=== PATIENT | female | born 1980 | race Caucasian/White ===

== ENCOUNTER 2019-12-17 13:53 | Emergency (ER) | payer OTHER, SELFPAY ==
[2019-12-17] MEDS: KETOROLAC 30 MG/ML VIAL (*BKC) IV PUSH (15:45)
[2019-12-17 16:33] VITALS: RESP 14; O2SAT 100
[2019-12-17] MEDS: SODIUM CHLORIDE 0.9% IV 1,000 ML 999 ML IV CONT (16:36)
--- NOTE | 2019-12-17 16:59 | PC.NURSE ---
[facility] CHARTING SYSTEM DOWN DURING PATIENT ASSESSMENT. PAPER CHARTING COMPLETED.
== END 2019-12-17 16:34 | disposition home or self-care (01) ==
PROVIDERS: Emergency Provider Surgery; PCP Physician Assistant
DX: G43.909 Migraine, unspecified, not intractable, without status migrainosus (principal)
CPT/HCPCS: 96374; 99282; 99284; J1885; J7030

== ENCOUNTER 2020-01-04 06:24 | Emergency (ER) | payer OTHER, SELFPAY ==
--- NOTE | ~2020-01-04 | XR_ITS ---
EXAMINATION: XR sacrum coccyx min 2V DATE: 01/04/2020 07:21 INDICATION: Sacrococcygeal pain. Fall. TECHNIQUE: 3 views of the sacrum and coccyx were obtained. COMPARISON: None. FINDINGS: There is dextrocurvature of lumbar spine. No fracture. There is mild osteoarthritis of the sacroiliac joints. IMPRESSION: 1. No fracture. Reviewed, dictated and finalized at location A. VEGETABLE IMPRESSION: 1. No fracture.
--- NOTE | ~2020-01-04 | XR_ITS ---
EXAMINATION: XR lumbar spine 2-3V DATE: 01/04/2020 07:21 INDICATION: Low back pain. Fall. TECHNIQUE: 3 views of lumbar spine were obtained. COMPARISON: None. FINDINGS: There is 7 degrees dextrocurvature of lumbar spine. Vertebral body heights and intervertebr al disc heights are normal. There are endplate osteophytes at multiple levels. The facet joints are u nremarkable. IMPRESSION: 1. Mild lumbar spondylosis. Reviewed, dictated and finalized at location A. [employer]IST IMPRESSION: 1. Mild lumbar spondylosis.
[2020-01-04 06:30] VITALS: BP 123/80; PULSE 68; RESP 18; TEMP 35.8; O2SAT 98
--- NOTE | 2020-01-04 06:55 | ED.BACK ---
HPI - Back Pain/Injury General Chief Complaint: Back Pain/Injury Stated Complaint: back pain s/p fall down stairs Time Seen by Provider: 01/04/20 06:29 History of Present Illness HPI Narrative: She slipped and fell down 7 stairs last night. She has pain in the lower back since the fall. Moderate in severity. Worse with standing. No radiation. No weaknes, numness, wounds, bruising. She has been ambulatory since the fall. She tried tylenol without relief. Related Data Home Medications Medication Instructions Recorded Confirmed sertraline [Zoloft] 75 mg PO DAILY 09/11/19 09/11/19 Allergies Allergy/AdvReac Type Severity Reaction Status Date / Time clavulanic acid Allergy Mild Unknown Verified 09/29/19 09:26 codeine Allergy Mild RASH Verified 09/29/19 09:26 latex Allergy Mild Unknown Verified 09/29/19 09:26 morphine Allergy Mild Unknown Verified 09/29/19 09:24 omeprazole Allergy Mild Unknown Verified 09/29/19 09:24 Penicillins Allergy Mild Unknown Verified 09/29/19 09:24 propoxyphene Allergy Mild Unknown Verified 09/29/19 09:24 zinc chloride Allergy Mild Unknown Verified 09/29/19 09:24 cinnamon Allergy Anaphylaxis Verified 09/29/19 09:24 AMOXICILLIN TRIHYDRATE Allergy Unknown Unknown Uncoded 09/29/19 09:24 POTASSIUM CLAVULANATE Allergy Unknown Unknown Uncoded 09/29/19 09:24 Review of Systems Review of Systems: All systems reviewed & are unremarkable except as noted in HPI and below Constitutional: Constitutional: Denies fever(s) and Denies weakness Cardiovascular: Cardiovascular: Denies chest pain Respiratory: Respiratory: Denies dyspnea Gastrointestinal: Gastrointestinal: Denies abdominal pain and Denies nausea Genitourinary: Genitourinary: Denies hematuria and Denies flank pain Musculoskeletal: Musculoskeletal: Reports back pain Neurologic: Denies dizziness, Denies headache(s), Denies numbness and Denies weakness PMF Past Medical History Medical History History of depression History of migraine Surgical History Surgical History Hx of tonsillectomy Social History Social History Substance use: former Gender identity (if verbalized by the patient): Female Exam Const: General: no acute distress and alert Nutritional Appearance: obese Orientation/consciousness: patient oriented x3 HENMT: Head: normal to inspection Eyes: Conjunctivae: conjunctivae normal Pupils: Equal, round and reactive pupils present EOM: EOMs intact bilaterally Resp: Effort & Inspection: normal respiratory effort Auscultation: clear to auscultation bilaterally Cardio: Rate: regular rate Rhythm: regular rhythm Back/Spine/Pelvis: Back: no CVA tenderness Thoracic/Lumbar Spine: thoraco-lumbar ROM normal, paraspinal muscle tenderness bilaterally and No thoracic spinal tenderness Course Vital Signs Vital signs: Vital Signs Temperature 35.8 C L 01/04/20 06:30 Pulse Rate 68 01/04/20 06:30 Respiratory Rate 18 01/04/20 06:30 Blood Pressure 123/80 01/04/20 06:30 Pulse Oximetry 98 01/04/20 06:30 Temperature 36.7 C 01/04/20 08:21 Pulse Rate 58 L 01/04/20 08:21 Respiratory Rate 16 01/04/20 08:21 Blood Pressure 140/94 H 01/04/20 08:21 Pulse Oximetry 98 01/04/20 08:21 MDM - Back Pain/Injury Differential Diagnosis Differential diagnosis: Likely strain of lumbar region and other (fracture, contusion) Medical Records Attestation: I reviewed the patient's medical records. Discharge Plan Discharge Clinical Impression: Strain of lumbar region Qualifiers: Encounter type: initial encounter Qualified Code(s): S39.012A - Strain of muscle, fascia and tendon of lower back, initial encounter Patient Disposition: Home, Self-Care Condition: Stable Instructions: Low Back Strain (ED) Prescriptions: New cyclobenzaprine
[2020-01-04] MEDS: IBUPROFEN 600 MG TABLET PO (08:02)
[2020-01-04 08:21] VITALS: BP 140/94; PULSE 58; RESP 16; TEMP 36.7; O2SAT 98
== END 2020-01-04 08:23 | disposition home or self-care (01) ==
PROVIDERS: Emergency Provider Emergency Medicine; PCP Physician Assistant
DX: S39.012A Strain of muscle, fascia and tendon of lower back, initial encounter (principal); W10.9XXA Fall (on) (from) unspecified stairs and steps, initial encounter
CPT/HCPCS: 72100; 72220; 99284; A9270

== ENCOUNTER 2020-01-13 09:10 | Emergency (ER) | payer OTHER, SELFPAY ==
[2020-01-13 09:20] VITALS: BP 129/75; PULSE 75; RESP 18; TEMP 36.6; O2SAT 100
--- NOTE | 2020-01-13 09:44 | ED.GENADULT ---
HPI - General Adult General Chief complaint: Upper Respiratory Infection Stated complaint: Watery eyes/sinus pressure/sore throat Time Seen by Provider: 01/13/20 09:44 Source: patient and RN notes reviewed Mode of arrival: ambulatory Limitations: no limitations History of Present Illness HPI narrative: 39-year-old female presents with complaints of upper respiratory infection, facial congestion, facial pressure, cough, left ear pain, and intermittent headaches (not the worst of her life) for 1 day. Daily Alavert without relief. No other treatment. No facial swelling. Dry cough. Sore throat bilateral with swallowing. No voice change. No high fevers, chills, drooling, neck or throat swelling. Nasal congestion. No rhinorrhea. No chest pain or shortness of breath. No exacerbating factors. Denies nausea, vomiting, and abdominal pain. Tolerating po intake well. Remains active. Chastity denies being , LMP unknown had and uterine ablation years ago. Some parts of this dictation were generated by voice recognition software and may contain typographical and/or grammatical inaccuracies. Related Data Home Medications Medication Instructions Recorded Confirmed sertraline [Zoloft] 75 mg PO DAILY 09/11/19 01/13/20 Otc Allergy Med 01/13/20 Allergies Allergy/AdvReac Type Severity Reaction Status Date / Time clavulanic acid Allergy Mild Unknown Verified 01/13/20 09:26 codeine Allergy Mild RASH Verified 01/13/20 09:26 latex Allergy Mild Unknown Verified 01/13/20 09:26 morphine Allergy Mild Unknown Verified 01/13/20 09:26 omeprazole Allergy Mild Unknown Verified 01/13/20 09:26 Penicillins Allergy Mild Unknown Verified 01/13/20 09:26 propoxyphene Allergy Mild Unknown Verified 01/13/20 09:26 zinc chloride Allergy Mild Unknown Verified 01/13/20 09:26 cinnamon Allergy Anaphylaxis Verified 01/13/20 09:26 AMOXICILLIN TRIHYDRATE Allergy Unknown Unknown Uncoded 09/29/19 09:24 POTASSIUM CLAVULANATE Allergy Unknown Unknown Uncoded 09/29/19 09:24 Review of Systems Review of Systems: Narrative: CONSTITUTIONAL: Denies fever, chills, sweats. EYES: Denies visual changes, redness, discharge. ENT: Complains of, facial congestion and pressure, LT otalgia, congestion, sore throat. Denies rhinorrhea. CARDIOVASCULAR: Denies chest pain, palpitations, edema. RESPIRATORY: Denies dyspnea, wheezing. Complains of dry cough. GASTROINTESTINAL: Denies abdominal pain, nausea, vomiting, diarrhea. GENITOURINARY: Denies dysuria, hematuria, abnormal discharge. SKIN: Denies rash or itching. MUSCULOSKELETAL: Denies acute back pain, joint pain, or myalgia. NEUROLOGIC: Denies numbness or focal weakness. Complains of intermittent SIBLEY. PSYCHIATRIC: Denies anxiety or depression. All systems reviewed & are unremarkable except as noted in HPI and below. [facility] Past Medical History Medical History (Updated 01/14/20 @ 00:01 by Lashell Perdue) History of depression History of migraine Surgical History Surgical History (Updated 01/13/20 @ 09:59 by KANCHAN Mcdaniel) History of endometrial ablation Hx of tonsillectomy Family History Family History (Updated 01/13/20 @ 10:01 by KANCHAN Mcdaniel) Grandparent Diabetes mellitus Father Lymphoma Social History Social History (Updated 01/13/20 @ 10:02 by KANCHAN Mcdaniel) Smoking status: Former smoker Second hand tobacco smoke exposure: No Alcohol intake: former Substance use: former Living arrangements: with family Occupation/Education: occupation Gender identity (if verbalized by the patient): Female Comments At time of signature, agree with nurse past medical, surgical, social, and family history. There is no relevant family history pertinent to the presenting complaint. Exam Narrative: Exam Narrative: GENERAL: This is a well-nourished, well-developed patient, in no apparent distress. Talks in full sentences and ambulates with steady gait
== END 2020-01-13 10:10 | disposition home or self-care (01) ==
PROVIDERS: Emergency Provider Nurse Practitioner Family; PCP Physician Assistant
DX: J00 Acute nasopharyngitis [common cold] (principal); J01.90 Acute sinusitis, unspecified; Z87.891 Personal history of nicotine dependence; F32.9 Major depressive disorder, single episode, unspecified
CPT/HCPCS: 99213; G0463

== ENCOUNTER 2020-03-30 11:52 | Emergency (ER) | payer OTHER, SELFPAY ==
[2020-03-30 11:58] VITALS: BP 129/77; PULSE 61; RESP 14; TEMP 36.7; O2SAT 100
--- NOTE | 2020-03-30 12:10 | ED.EAR ---
HPI - Ear Problem General Chief complaint: Ear Stated complaint: head nausea achey Time Seen by Provider: 03/30/20 12:10 Source: patient and RN notes reviewed Mode of arrival: ambulatory Limitations: no limitations History of Present Illness HPI Narrative: This is a 39 years old female presents to the office for an evaluation of right ear pain for three weeks. Associated with headache, feeling malaise with vomiting once. Denies diarrhea, fever, chest congestion or rash. Denies sick contact at home. She is currently on cipro for her symptoms that her doctor placed on her it about a week ago. She tried one dose of Tylenol for pain yesterday. She also stated that she does not like to take any medication if she does not have to. Related Data Home Medications Medication Instructions Recorded Confirmed ciprofloxacin HCl [Cipro] 500 mg PO Q12H 03/30/20 03/30/20 sertraline 50 mg PO DAILY 03/30/20 03/30/20 Allergies Allergy/AdvReac Type Severity Reaction Status Date / Time clavulanic acid Allergy Mild Unknown Verified 03/30/20 12:05 codeine Allergy Mild RASH Verified 03/30/20 12:05 latex Allergy Mild Unknown Verified 03/30/20 12:05 morphine Allergy Mild Unknown Verified 03/30/20 12:05 omeprazole Allergy Mild Unknown Verified 03/30/20 12:05 Penicillins Allergy Mild Unknown Verified 03/30/20 12:05 propoxyphene Allergy Mild Unknown Verified 03/30/20 12:05 zinc chloride Allergy Mild Unknown Verified 03/30/20 12:05 cinnamon Allergy Anaphylaxis Verified 03/30/20 12:05 AMOXICILLIN TRIHYDRATE Allergy Unknown Unknown Uncoded 09/29/19 09:24 POTASSIUM CLAVULANATE Allergy Unknown Unknown Uncoded 09/29/19 09:24 Review of Systems Review of Systems: Narrative: CONSTITUTIONAL: Denies fever, chills ENT: Reports head congestion and right ear pain. Denies sore throat. CARDIOVASCULAR: Denies chest pain, palpitation, edema. RESPIRATORY: Denies dyspnea, wheezing, cough GASTROINTESTINAL: Denies abdominal pain, nausea, vomiting, diarrhea. GENITOURINARY: Denies urinary symptoms or discharge SKIN: Denies rash MUSCULOSKELETAL: Denies acute back pain NEUROLOGIC: Denies lightheaded PMFSH Past Medical History Medical History (Updated 03/30/20 @ 12:22 by KANCHAN Montoya) Anxiety History of depression History of migraine Surgical History Surgical History History of endometrial ablation Hx of tonsillectomy Family History Family History Grandparent Diabetes mellitus Father Lymphoma Social History Social History Smoking status: Former smoker Second hand tobacco smoke exposure: No Alcohol intake: former Substance use: former Gender identity (if verbalized by the patient): Female Comments At time of signature, I agree with nursing past medical, surgical, social and family history. There is no relevant family history pertinent to the presenting complaint. Exam Narrative: Exam Narrative: GENERAL: This is a well-nourished, well-developed patient, in no apparent distress. EYES: Sclera clear/white. Vision is grossly intact. EARS: External ears normal, auditory canals clear and without drainage, TMs noted fluid level without perforation. Hearing grossly intact. NOSE: External nose normal with no obvious nasal discharge, nares without redness, no rhinorrhea. THROAT: Mucous membranes moist, posterior pharynx clear. NECK: Neck supple, non-tender without lymphadenopathy, masses or thyromegaly. CARDIOVASCULAR: Regular rate and rhythm without murmurs, gallops, or rubs. RESPIRATORY: Clear to auscultation. Breath sounds equal bilaterally. No wheezes, rales, or rhonchi. GASTROINTESTINAL: Abdomen soft, non-tender, nondistended. Bowel sounds are active. No guarding. SKIN: warm, intact with no suspicious lesions or rash, good texture and turgor. NEURO: awake, alert, a
== END 2020-03-30 12:28 | disposition home or self-care (01) ==
PROVIDERS: Emergency Provider Nurse Practitioner; PCP Physician Assistant
DX: H65.01 Acute serous otitis media, right ear (principal); F41.9 Anxiety disorder, unspecified; Z87.891 Personal history of nicotine dependence
CPT/HCPCS: 99213; G0463

== ENCOUNTER 2020-04-18 09:22 | Emergency (ER) | payer OTHER, SELFPAY ==
--- NOTE | ~2020-04-18 | XR_ITS ---
[[id number] ] INDICATION: Right shoulder and rib pain after fall TECHNIQUE: Frontal projection of the upper right ribs, frontal projection of the lower right ribs, ob lique projection of all the right ribs, frontal inspiratory chest x-ray for interpretation. FINDINGS: There are no displaced rib fractures identified. There are no soft tissue abnormality see n. The lungs are clear. IMPRESSION: 1:No displaced rib fractures. Reviewed, dictated and finalized at location A.
--- NOTE | ~2020-04-18 | XR_ITS ---
XR shoulder RT min 2V 04/18/2020 09:54 INDICATION: Right shoulder pain after fall PROCEDURE: 4 views right shoulder COMPARISON: No prior studies for comparison. FINDINGS: Fracture, dislocation or subluxation is not identified. The soft tissues appear within norm al limits. No foreign bodies are identified. IMPRESSION: 1: NO ACUTE BONE OR JOINT ABNORMALITY IDENTIFIED. Reviewed, dictated and finalized at location A.
[2020-04-18 09:30] VITALS: BP 129/87; PULSE 64; RESP 16; TEMP 36.6; O2SAT 100
--- NOTE | 2020-04-18 09:31 | PC.NURSE ---
pt states is wanting to be discharged. refusing to stay in her room. telling staff her doctor has discharged. pt argumentative. yelling at staff who in the hell do you think you are . edp and ed security at bedside.
--- NOTE | 2020-04-18 09:44 | ED.GENADULT ---
HPI - General Adult General Chief complaint: Extremity Injury, Upper Stated complaint: right arm pain Time Seen by Provider: 04/18/20 09:24 Source: RN notes reviewed History of Present Illness HPI narrative: Patient presents emergency department from home for fall. Patient states that this morning she tripped over her dog toy and fell into the wall on her right side. She states that since that time she is had pain in the right shoulder that radiates down her right arm as well and is her right side she denies striking her head or loss of consciousness she denies shortness of breath abdominal pain nausea vomiting or any other symptoms but states she took Tylenol at home for pain Related Data Home Medications Medication Instructions Recorded Confirmed ciprofloxacin HCl [Cipro] 500 mg PO Q12H 03/30/20 03/30/20 dextroamphetamine 30 mg PO DAILY 03/30/20 03/30/20 sertraline 50 mg PO DAILY 03/30/20 03/30/20 Allergies Allergy/AdvReac Type Severity Reaction Status Date / Time clavulanic acid Allergy Mild Unknown Verified 03/30/20 12:05 codeine Allergy Mild RASH Verified 03/30/20 12:05 latex Allergy Mild Unknown Verified 03/30/20 12:05 morphine Allergy Mild Unknown Verified 03/30/20 12:05 omeprazole Allergy Mild Unknown Verified 03/30/20 12:05 Penicillins Allergy Mild Unknown Verified 03/30/20 12:05 propoxyphene Allergy Mild Unknown Verified 03/30/20 12:05 zinc chloride Allergy Mild Unknown Verified 03/30/20 12:05 cinnamon Allergy Anaphylaxis Verified 03/30/20 12:05 AMOXICILLIN TRIHYDRATE Allergy Unknown Unknown Uncoded 09/29/19 09:24 POTASSIUM CLAVULANATE Allergy Unknown Unknown Uncoded 09/29/19 09:24 Review of Systems Review of Systems: Narrative: Gen.: Denies fevers or chills Eyes: Denies eye pain or visual change ENT: Denies congestion Respiratory: Denies shortness of breath or cough CV: Denies chest pain or palpitations GI: Denies abdominal pain nausea, emesis or diarrhea Musculoskeletal: See HPI Neuro: Denies numbness, tingling, weakness or focal weakness Skin: Denies rash Except as documented, all other systems reviewed and negative PMFSH Past Medical History Medical History Anxiety History of depression History of migraine Surgical History Surgical History History of endometrial ablation Hx of tonsillectomy Social History Social History Smoking status: Former smoker Second hand tobacco smoke exposure: No Alcohol intake: former Substance use: former Gender identity (if verbalized by the patient): Female Exam Narrative: Exam Narrative: APPEARANCE: No acute distress, nontoxic, resting in bed EYES: EOMI HEENT: Normocephalic, atraumatic, OMM RESPIRATORY: No respiratory distress Clear to auscultation bilaterally with no rhonchi wheezing or rales. CARDIOVASCULAR: Regular rate and rhythm without murmurs rubs or gallops. ABDOMINAL: Soft, nontender, nondistended, no rebound or guarding MUSCULOSKELETAl: Moves all extremities. No clubbing, cyanosis or edema. Tender palpation of the right superior and posterior shoulder no swelling or ecchymosis pain with flexion abduction greater than 90 degrees, no tenderness of the right elbow or wrist with full range of motion, radial pulse 2+, neurovascular intact Back: No midline thoracic lumbar tenderness palpation 10 per patient right lateral ribs 6 through 8 no swelling or ecchymosis NEURO: Awake and alert. Following commands, speech normal, no focal deficits SKIN:: Warm, dry. No rashes lesions or abrasions PSYCHIATRIC: Normal affect/mood, Course Course Emergency Course: Discussed with patient results of workup and diagnosis. Discussed need for follow-up with primary care, proper use of medication, and reasons to return to the emergency department. Patient understands and agrees to current treatment plan
== END 2020-04-18 10:30 | disposition home or self-care (01) ==
PROVIDERS: Emergency Provider Emergency Medicine; PCP Physician Assistant
DX: S40.011A Contusion of right shoulder, initial encounter (principal); S27.52XA Contusion of thoracic trachea, initial encounter; F41.9 Anxiety disorder, unspecified; F32.9 Major depressive disorder, single episode, unspecified; Z87.891 Personal history of nicotine dependence; W18.09XA Striking against other object with subsequent fall, initial encounter
CPT/HCPCS: 71101; 73030; 99284

== ENCOUNTER 2020-04-19 22:24 | Emergency (ER) | payer OTHER, SELFPAY ==
[2020-04-19 23:00] VITALS: BP 153/98; PULSE 67; RESP 20; TEMP 37.2; O2SAT 97
--- NOTE | 2020-04-19 23:06 | ED.HA ---
HPI - Headache General Stated Complaint: headache Time Seen by Provider: 04/19/20 23:06 Source: patient Mode of arrival: ambulatory Limitations: no limitations History of Present Illness HPI Narrative: 39-year-old man comes in today complaining of a headache that has been present for last 3 days. Patient states that his right-sided, frontal, throbbing in nature and associated with nausea and photophobia. She states she has had migraines like this in the past and they have responded well to Toradol. She last took some ibuprofen about noon and some Tylenol about 3 hours ago. She has had no vomiting, fever. She is currently taking Cipro for a sinus infection. MD elicited complaint: migraine Pertinent past history: migraines Onset (ago): day(s) (3) Onset description: gradually Location: right and frontal Severity: moderate Quality & Timing: throbbing Exacerbating factors: none Relieving factors: nothing Associated symptoms: nausea Treatments prior to arrival: acetaminophen and ibuprofen Related Data Home Medications Medication Instructions Recorded Confirmed ciprofloxacin HCl [Cipro] 500 mg PO Q12H 03/30/20 03/30/20 dextroamphetamine 30 mg PO DAILY 03/30/20 03/30/20 sertraline 50 mg PO DAILY 03/30/20 03/30/20 Allergies Allergy/AdvReac Type Severity Reaction Status Date / Time clavulanic acid Allergy Mild Unknown Verified 03/30/20 12:05 codeine Allergy Mild RASH Verified 03/30/20 12:05 latex Allergy Mild Unknown Verified 03/30/20 12:05 morphine Allergy Mild Unknown Verified 03/30/20 12:05 omeprazole Allergy Mild Unknown Verified 03/30/20 12:05 Penicillins Allergy Mild Unknown Verified 03/30/20 12:05 propoxyphene Allergy Mild Unknown Verified 03/30/20 12:05 zinc chloride Allergy Mild Unknown Verified 03/30/20 12:05 cinnamon Allergy Anaphylaxis Verified 03/30/20 12:05 AMOXICILLIN TRIHYDRATE Allergy Unknown Unknown Uncoded 09/29/19 09:24 POTASSIUM CLAVULANATE Allergy Unknown Unknown Uncoded 09/29/19 09:24 Review of Systems Constitutional: Constitutional: Denies chills and Denies fever(s) Eyes: Eyes: Denies change in vision and Denies photophobia ENT: Denies dysphagia, Denies nasal congestion and Denies sore throat Cardiovascular: Cardiovascular: Denies chest pain and Denies radiating jaw, neck or arm pain Respiratory: Respiratory: Denies cough, Denies dyspnea and Denies wheezing Gastrointestinal: Gastrointestinal: Denies abdominal pain, Reports nausea and Denies vomiting Musculoskeletal: Musculoskeletal: Denies back pain, Denies arthralgias and Denies joint swelling Integumentary/Breasts: Skin/Breast: Denies pruritus, Denies erythema and Denies rash Neurologic: Reports as per HPI, Denies vertigo, Denies dizziness, Denies syncope, Denies focal weakness, Denies numbness and Denies weakness Hematologic/Lymphatic: Hematologic/Lymphatic: Denies easy bleeding and Denies easy bruising Allergic/Immunologic: Allergic/Immunologic: Denies lip swelling and Denies wheezing PMFSH Past Medical History Medical History Anxiety History of depression History of migraine Surgical History Surgical History History of endometrial ablation Hx of tonsillectomy Family History Family History Grandparent Diabetes mellitus Father Lymphoma Social History Social History Smoking status: Former smoker Second hand tobacco smoke exposure: No Alcohol intake: former Substance use: former Gender identity (if verbalized by the patient): Female Exam Const: General: healthy appearing and alert Nutritional Appearance: well nourished Orientation/consciousness: patient oriented x3 Other: Moderate acute distress HENMT: Head: normal to inspection Ears: external ears normal, TM's normal bilat
[2020-04-19] MEDS: KETOROLAC (*BKC) 60 MG/2 ML VIAL IM (23:20)
== END 2020-04-20 00:10 | disposition home or self-care (01) ==
PROVIDERS: Emergency Provider Emergency Medicine; PCP Physician Assistant
DX: G43.409 Hemiplegic migraine, not intractable, without status migrainosus (principal)
CPT/HCPCS: 96372; 99282; 99283; J1885

== ENCOUNTER 2020-06-09 19:15 | Emergency (ER) | payer OTHER, SELFPAY ==
--- NOTE | 2020-06-09 19:21 | ED.HA ---
HPI - Headache General Chief Complaint: Headache Stated Complaint: Headache Time Seen by Provider: 06/09/20 19:23 Source: patient and RN notes reviewed Mode of arrival: ambulatory Limitations: no limitations History of Present Illness HPI Narrative: 39 old female presents with concern for 4-day migraine headache. Reports due to her medication allergies, there is not much she can take for migraine. Reports she has not able to see her primary care doctor because her insurance changed. Reports this is not the worst headache of her life, denies head trauma. Denies weakness in any extremity, difficulty speaking, difficulty swallowing. Reports light sensitivity. Denies nausea, vomiting. MD elicited complaint: migraine Related Data Home Medications Medication Instructions Recorded Confirmed sertraline 50 mg PO DAILY 03/30/20 04/20/20 dextroamphetamine-amphetamine 30 mg PO DAILY 06/09/20 06/09/20 Allergies Allergy/AdvReac Type Severity Reaction Status Date / Time clavulanic acid Allergy Mild Unknown Verified 06/09/20 19:44 codeine Allergy Mild RASH Verified 06/09/20 19:44 latex Allergy Mild Unknown Verified 06/09/20 19:44 morphine Allergy Mild Unknown Verified 06/09/20 19:44 omeprazole Allergy Mild Unknown Verified 06/09/20 19:44 Penicillins Allergy Mild Unknown Verified 06/09/20 19:44 propoxyphene Allergy Mild Unknown Verified 06/09/20 19:44 zinc chloride Allergy Mild Unknown Verified 06/09/20 19:44 potassium Allergy Unknown Unknown Verified 06/09/20 19:44 amoxicillin Allergy Unknown Verified 06/09/20 19:44 cinnamon Allergy Anaphylaxis Verified 06/09/20 19:44 Review of Systems Review of Systems: Narrative: CONSTITUTIONAL: Denies malaise, chills, sweats, or fever. EYES: Denies visual changes, redness, or discharge. ENT: Denies rhinorrhea, congestion, sinus pain, otalgia or sore throat. CARDIOVASCULAR: Denies chest pain, palpitations, or edema. RESPIRATORY: Denies cough or dyspnea. MUSCULOSKELETAL: Denies back pain, joint pain, or myalgia. NEUROLOGIC: Denies numbness, weakness. Reports headache. All systems reviewed & are unremarkable except as noted in HPI and below PMFSH Social History Social History Smoking status: Former smoker Second hand tobacco smoke exposure: No Alcohol intake: former Substance use: former Gender identity (if verbalized by the patient): Female Comments At time of signature, agree with nursing past medical, surgical, social and family history. There is no relevant family history pertinent to the presenting complaint Exam Narrative: Exam Narrative: GENERAL: Well-appearing, well-nourished, and in no acute distress. HEAD: Normocephalic, atraumatic. EYES: PERRLA, conjunctivae clear, and EOMI. No nystagmus. ENT: Nares clear. Mucous membranes moist. Oropharynx without erythema or lesions. Tonsils not enlarged and without exudate. NECK: Supple. CHEST: No respiratory distress. Clear to auscultation. No bony deformities, no asymmetry. Speaks in full sentences. HEART: Regular rate and rhythm. No murmur heard. Normal peripheral pulses. SKIN: Warm, dry, no rash. NEURO: Alert and oriented x3. No focal deficits. Cranial nerves II through XII grossly intact PSYCH: Normal mood and affect Course Course Emergency Course: Patient is aware of diagnosis, understands and agrees to treatment plan. Anticipatory guidance given. Patient agrees to follow-up as directed and is aware of reasons to seek care at the emergency department. Portions of this record may have been created with voice recognition software Reevaluation(s) Reevaluation #1: Patient reports improvement in symptoms Date: 06/09/20 Time: 19:53 Vital Signs Vital signs: Reviewed. Patient has been instructed to follow up with her primary care provider within the next week regarding her elevated blood pressure today. MDM - Headache MDM Narrative Medical decision making narrative: The
[2020-06-09 19:22] VITALS: BP 146/77; PULSE 68; RESP 20; TEMP 36.9; O2SAT 100
[2020-06-09] MEDS: KETOROLAC (*BKC) 60 MG/2 ML VIAL IM (19:28)
== END 2020-06-09 19:58 | disposition home or self-care (01) ==
PROVIDERS: Emergency Provider Nurse Practitioner; PCP Physician Assistant
DX: R51 Headache (principal); Z87.891 Personal history of nicotine dependence
CPT/HCPCS: 96372; 99213; G0463; J1885

== ENCOUNTER 2020-10-25 10:58 | Emergency (ER) | payer OTHER, SELFPAY ==
--- NOTE | ~2020-10-25 | XR_ITS ---
EXAMINATION: XR shoulder RT min 2V DATE: 10/25/2020 12:25 INDICATION: Right shoulder pain. TECHNIQUE: 4 views of right shoulder were obtained. COMPARISON: Right shoulder radiograph 04/18/2020 FINDINGS: Bone alignment is normal. No fracture. Glenohumeral joint is normal. There is mild acromioc lavicular joint osteoarthritis. IMPRESSION: 1. Mild right acromioclavicular joint osteoarthritis. Reviewed, dictated and finalized at location A. Y EXAMINER
[2020-10-25 11:05] VITALS: BP 147/76; PULSE 57; RESP 18; TEMP 36.9; O2SAT 100
--- NOTE | 2020-10-25 12:00 | ED.UPPEXIN ---
HPI - Extremity Injury (Upper) General Chief Complaint: Extremity Injury, Upper Stated Complaint: right shoulder injury Time Seen by Provider: 10/25/20 11:56 Source: patient, RN notes reviewed and old records reviewed History of Present Illness HPI narrative: 40-year-old female presents to emergency department for right shoulder pain that happened last night. Patient states she was in bed, lifted her right arm above her head and heard a pop. Patient has taken Tylenol and Motrin this morning to help with the pain. She has never had this pain before in the past. No numbness or tingling to her right upper extremity. No other pain. Related Data Home Medications Medication Instructions Recorded Confirmed sertraline 75 mg PO DAILY 03/30/20 06/09/20 dextroamphetamine-amphetamine 30 mg PO DAILY 06/09/20 06/09/20 ibuprofen 10/25/20 prednisone 10/25/20 tramadol 50 mg PO Q6H PRN 10/25/20 10/25/20 Allergies Allergy/AdvReac Type Severity Reaction Status Date / Time clavulanic acid Allergy Mild Unknown Verified 10/25/20 11:45 codeine Allergy Mild RASH Verified 10/25/20 11:45 latex Allergy Mild Unknown Verified 10/25/20 11:45 morphine Allergy Mild Unknown Verified 10/25/20 11:45 omeprazole Allergy Mild Unknown Verified 10/25/20 11:45 Penicillins Allergy Mild Unknown Verified 10/25/20 11:45 propoxyphene Allergy Mild Unknown Verified 10/25/20 11:45 zinc chloride Allergy Mild Unknown Verified 10/25/20 11:45 potassium Allergy Unknown Unknown Verified 10/25/20 11:45 amoxicillin Allergy Unknown Verified 10/25/20 11:45 cinnamon Allergy Anaphylaxis Verified 10/25/20 11:45 Review of Systems Review of Systems: Narrative: CONSTITUTIONAL: Denies fever, chills, or sweats. EYES: Denies visual changes, redness, or discharge. ENT: Denies rhinorrhea, congestion, sore throat, or otalgia. CARDIOVASCULAR: Denies chest pain, palpitations, or edema. RESPIRATORY: Denies cough or dyspnea. GASTROINTESTINAL: Denies abdominal pain, nausea, vomiting, or diarrhea. GENITOURINARY: Denies dysuria or hematuria. SKIN: Denies rash or itching. MUSCULOSKELETAL: Denies back pain or myalgia. Reports right shoulder pain. NEUROLOGIC: Denies headache, numbness, dizziness, or weakness. PSYCHIATRIC: Denies anxiety or depression. All systems reviewed & are unremarkable except as noted in HPI and below (ROS) PMFSH Past Medical History Medical History (Updated 10/26/20 @ 00:00 by Background Daemon) Anxiety History of depression History of migraine Surgical History Surgical History History of endometrial ablation Hx of tonsillectomy Family History Family History Grandparent Diabetes mellitus Father Lymphoma Social History Social History Smoking status: Former smoker Second hand tobacco smoke exposure: No Alcohol intake: former Substance use: former Gender identity (if verbalized by the patient): Female Exam Narrative: Exam Narrative: GENERAL: Well-appearing, well-nourished, and in no acute distress. HEAD: Normocephalic, atraumatic. EYES: PERRLA and EOMI. ENT: Nares clear, no rhinorrhea or epistaxis. Mucous membranes moist. NECK: Supple. CHEST: Clear to auscultation. No respiratory distress. HEART: Regular rate and rhythm. No murmur heard. Normal peripheral pulses. ABDOMEN: Soft, nontender, nondistended, normal active bowel sounds. EXTREMITIES: No edema. Pain with range of motion of right shoulder. Positive apprehension test, and Brandt sign SKIN: Warm, dry, no rash. NEURO: No focal deficits. Alert and oriented x3. PSYCH: Normal mood and affect. Course Reevaluation(s) Reevaluation #1: 1300 -reevaluated patient, pain improved. Unremarkable x-ray. Counseled patient to follow-up with her medical provider within 1 week. Return to emergency department if symptoms per
[2020-10-25] MEDS: KETOROLAC 30 MG/ML VIAL (*BKC) IM (12:10)
== END 2020-10-25 13:20 | disposition home or self-care (01) ==
PROVIDERS: Emergency Provider Emergency Medicine; PCP Physician Assistant
DX: M25.511 Pain in right shoulder (principal); F41.9 Anxiety disorder, unspecified; F32.9 Major depressive disorder, single episode, unspecified
CPT/HCPCS: 73030; 96372; 99283; J1885

== ENCOUNTER 2020-11-15 08:34 | Emergency (ER) | payer OTHER, SELFPAY ==
--- NOTE | ~2020-11-15 | XR_ITS ---
EXAMINATION: XR chest 1V portable DATE: 11/15/2020 10:03 INDICATION: Shortness of breath. TECHNIQUE: A single frontal view of the chest was obtained. COMPARISON: Chest 2 views 11/24/2019, CT abdomen and pelvis 01/20/2013 FINDINGS: The chest demonstrates clear lungs without pneumonia, pleural effusion, or pneumothorax. Th e heart size is normal. IMPRESSION: 1. No acute cardiopulmonary disease. Reviewed, dictated and finalized at location A. T MARKETING INTERN
[2020-11-15 08:41] VITALS: BP 145/96; PULSE 68; RESP 16; TEMP 36.3; O2SAT 100
--- NOTE | 2020-11-15 08:48 | ECG_ITS ---
Measurements Intervals [place] Rate: 56 P: 44 UT: 157 QRS: 28 QRSD: 93 T: 46 QT: 417 QTc: 404 Interpretive Statements SINUS BRADYCARDIA BASELINE ARTIFACT- V5 BORDERLINE ECG Electronically Signed On 11-15-2020 8:54:29 MERCHANDISE PLANNING MANAGER by Clay Waters D.O.
--- NOTE | 2020-11-15 09:43 | ED.URI ---
HPI - URI/Sore Throat General Chief Complaint: Upper Respiratory Infection Stated Complaint: pichardo/congestion Time Seen by Provider: 11/15/20 09:05 Source: patient Mode of arrival: ambulatory Limitations: no limitations History of Present Illness HPI Narrative: Patient is a 40-year-old female who presents with sinus pressure frontal headache cough congestion that has been present for almost a week unsure as to sick contacts on arrival patient is in no distress has been taking Sudafed and Tylenol [id number] denies vomiting diarrhea or fever Related Data Home Medications Medication Instructions Recorded Confirmed sertraline 75 mg PO DAILY 03/30/20 06/09/20 dextroamphetamine-amphetamine 30 mg PO DAILY 06/09/20 06/09/20 ibuprofen 10/25/20 tramadol 50 mg PO Q6H PRN 10/25/20 10/25/20 Allergies Allergy/AdvReac Type Severity Reaction Status Date / Time clavulanic acid Allergy Mild Unknown Verified 11/15/20 08:45 codeine Allergy Mild RASH Verified 11/15/20 08:45 latex Allergy Mild Unknown Verified 11/15/20 08:45 morphine Allergy Mild Unknown Verified 11/15/20 08:45 omeprazole Allergy Mild Unknown Verified 11/15/20 08:45 Penicillins Allergy Mild Unknown Verified 11/15/20 08:45 propoxyphene Allergy Mild Unknown Verified 11/15/20 08:45 zinc chloride Allergy Mild Unknown Verified 11/15/20 08:45 potassium Allergy Unknown Unknown Verified 11/15/20 08:45 amoxicillin Allergy Unknown Verified 11/15/20 08:45 cinnamon Allergy Anaphylaxis Verified 11/15/20 08:45 Review of Systems Review of Systems: All systems reviewed & are unremarkable except as noted in HPI and below PMFSH Past Medical History Medical History (Updated 11/15/20 @ 09:56 by Bishnu Oakley PA-C) Anxiety History of depression History of migraine Surgical History Surgical History History of endometrial ablation Hx of tonsillectomy Family History Family History Grandparent Diabetes mellitus Father Lymphoma Social History Social History Smoking status: Former smoker Second hand tobacco smoke exposure: No Alcohol intake: former Substance use: former Gender identity (if verbalized by the patient): Female Exam Narrative: Exam Narrative: GENERAL: Well-appearing, well-nourished, and in no acute distress. HEAD: Normocephalic, atraumatic. EYES: PERRLA and EOMI. ENT: Nares clear, no rhinorrhea or epistaxis. Mucous membranes moist. Bilateral TMs pearly [place] nonbulging NECK: Supple. No adenopathy or masses. CHEST: Clear to auscultation. No respiratory distress. No wheezes rales or rhonchi HEART: Regular rate and rhythm. No murmur heard. EXTREMITIES: Normal range of motion. No edema. SKIN: Warm, dry, no rash. NEURO: No focal deficits. Alert and oriented x3. PSYCH: Normal mood and affect. Course Course Emergency Course: Patient in the room no distress aware of case findings treatment plan diagnosis agreeing to follow-up as directed or to return if symptoms worsen or concerns will be tested for COVID-19 will self quarantine until her primary care doctor gets her results she is aware the primary care is necessary to get her results and that she cannot get her results along Vital Signs Vital signs: Vital Signs Temperature 97.3 F L 11/15/20 08:41 Pulse Rate 68 11/15/20 08:41 Respiratory Rate 16 11/15/20 08:41 Blood Pressure 145/96 H 11/15/20 08:41 Pulse Oximetry 100 11/15/20 08:41 Temperature 97.3 F L 11/15/20 08:41 Pulse Rate 68 11/15/20 08:41 Respiratory Rate 16 11/15/20 08:41 Blood Pressure 145/96 H 11/15/20 08:41 Pulse Oximetry 100 11/15/20 08:41 MDM - URI/Sore Throat MDM Narrative Medical decision making narrative: ABCs intact vital signs stable no pneumonia normal oxygenation felt appropriate for discharge home will be
[2020-11-15] MEDS: KETOROLAC (*BKC) 60 MG/2 ML VIAL IM (09:52)
[2020-11-15 17:42] LABS: SARS-CoV-2 RNA PCR Negative
== END 2020-11-15 10:30 | disposition home or self-care (01) ==
PROVIDERS: Emergency Medicine Emergency Medical Services; Emergency Provider Emergency Medicine; PCP Physician Assistant
DX: J06.9 Acute upper respiratory infection, unspecified (principal); Z20.822 Contact with and (suspected) exposure to COVID-19; Z87.891 Personal history of nicotine dependence; F41.9 Anxiety disorder, unspecified; F32.9 Major depressive disorder, single episode, unspecified
CPT/HCPCS: 71045; 93005; 96372; 99283; C9803; J1885; U0003

== ENCOUNTER 2020-11-29 08:18 | Emergency (ER) | payer OTHER, SELFPAY ==
--- NOTE | 2020-11-29 08:24 | ED.URI ---
HPI - URI/Sore Throat General Chief Complaint: Upper Respiratory Infection Stated Complaint: headache and sinus pain Time Seen by Provider: 11/29/20 08:24 Source: patient and RN notes reviewed History of Present Illness HPI Narrative: Patient is a 40-year-old female who presents the urgent care with complaints of sinus pressure and headache for the last 3 days. Patient was seen, by another provider, on November 15 and placed on Flonase and loratadine. Patient states she has not been compliant with taking the medications. States that she had a Covid test last week and it was negative. Patient has been taking Advil, Tylenol and Excedrin for the headache without any relief. Denies of any fever, cough, postnasal drainage. Denies of any known exposure to Covid. States that her last migraine was approximately 5 months ago. States that her migraine is typical symptoms for her . States that she has some light sensitivity. Patient has not been able to be on her controller medications for her migraines after insurance dropped her PCP. Patient states that she is working on getting a new primary care doctor. Patient was seen in May at our facility and given a Toradol shot in which she states is the only thing that helps her severe migraines . No other acute complaints. No acute distress noted. Patient aware of the plan of care. Some parts of this dictation were generated by voice recognition software and may contain typographical and/or grammatical inaccuracies. Related Data Home Medications Medication Instructions Recorded Confirmed sertraline 75 mg PO DAILY 03/30/20 11/29/20 Allergies Allergy/AdvReac Type Severity Reaction Status Date / Time clavulanic acid Allergy Mild Unknown Verified 11/29/20 08:46 codeine Allergy Mild RASH Verified 11/29/20 08:46 latex Allergy Mild Unknown Verified 11/29/20 08:46 morphine Allergy Mild Unknown Verified 11/29/20 08:46 omeprazole Allergy Mild Unknown Verified 11/29/20 08:46 Penicillins Allergy Mild Unknown Verified 11/29/20 08:46 propoxyphene Allergy Mild Unknown Verified 11/29/20 08:46 zinc chloride Allergy Mild Unknown Verified 11/29/20 08:46 potassium Allergy Unknown Unknown Verified 11/29/20 08:46 amoxicillin Allergy Unknown Verified 11/29/20 08:46 cinnamon Allergy Anaphylaxis Verified 11/29/20 08:46 Review of Systems Review of Systems: Narrative: CONSTITUTIONAL: Denies fever, chills, or sweats. EYES: Denies visual changes, redness, or discharge. ENT: Denies rhinorrhea, congestion, sore throat, or otalgia. Reports of sinus pressure CARDIOVASCULAR: Denies chest pain, palpitations, or edema. RESPIRATORY: Denies cough or dyspnea. GASTROINTESTINAL: Denies abdominal pain, nausea, vomiting, or diarrhea. GENITOURINARY: Denies dysuria or hematuria. SKIN: Denies rash or itching. MUSCULOSKELETAL: Denies back pain, joint pain, or myalgia. NEUROLOGIC: Reports a migraine headache localized mostly to the right side All other systems reviewed are negative, except as documented in HPI. [facility] Past Medical History Medical History (Updated 11/29/20 @ 09:27 by KANCHAN Salguero) Anxiety History of depression History of migraine Surgical History Surgical History History of endometrial ablation Hx of tonsillectomy Family History Family History Grandparent Diabetes mellitus Father Lymphoma Social History Social History Smoking status: Former smoker Second hand tobacco smoke exposure: No Alcohol intake: former Substance use: former Gender identity (if verbalized by the patient): Female Comments At the time of my signature, I reviewed and agree with the nursing past medical, surgical, social, and family history. There is no relevant family history pertinent to the patient complaint. Exam Narrative:
[2020-11-29 08:35] VITALS: BP 118/70; PULSE 60; RESP 18; TEMP 36.4; O2SAT 99
[2020-11-29] MEDS: KETOROLAC (*BKC) 60 MG/2 ML VIAL IM (08:58)
== END 2020-11-29 09:31 | disposition home or self-care (01) ==
PROVIDERS: Emergency Provider Nurse Practitioner Family; PCP Physician Assistant
DX: R51.9 Headache, unspecified (principal); Z87.891 Personal history of nicotine dependence; F41.9 Anxiety disorder, unspecified; F32.9 Major depressive disorder, single episode, unspecified
CPT/HCPCS: 96372; 99213; G0463; J1885

== ENCOUNTER 2020-12-29 16:17 | Emergency (ER) | payer OTHER, SELFPAY ==
[2020-12-29 16:24] VITALS: BP 146/79; PULSE 66; RESP 16; TEMP 36.5; O2SAT 100
--- NOTE | 2020-12-29 16:39 | ED.URI ---
HPI - URI/Sore Throat General Chief Complaint: Upper Respiratory Infection Stated Complaint: HEADACHE/SINUS/EARACHE Time Seen by Provider: 12/29/20 16:25 Source: patient Mode of arrival: ambulatory Limitations: no limitations History of Present Illness HPI Narrative: Geovanni Madrigal is a 40 yo female with a PMH of migraine, depression, [facility] complaints of fullness in ears sneezing sniffles congestion x3 and half days, states the fullness in her ears has worsened as well as the sneezing. Rated headache today as 10/10. She has taken Excedrin and Claritin. When I suggested use of Flonase she said she cannot take any aerosolized medication in her nose because it almost killed her . 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 Related Data Home Medications Medication Instructions Recorded Confirmed sertraline 75 mg PO DAILY 03/30/20 12/29/20 Allergies Allergy/AdvReac Type Severity Reaction Status Date / Time clavulanic acid Allergy Mild Unknown Verified 12/29/20 16:27 codeine Allergy Mild RASH Verified 12/29/20 16:27 latex Allergy Mild Unknown Verified 12/29/20 16:27 morphine Allergy Mild Unknown Verified 12/29/20 16:27 omeprazole Allergy Mild Unknown Verified 12/29/20 16:27 Penicillins Allergy Mild Unknown Verified 12/29/20 16:27 propoxyphene Allergy Mild Unknown Verified 12/29/20 16:27 zinc chloride Allergy Mild Unknown Verified 12/29/20 16:27 potassium Allergy Unknown Unknown Verified 12/29/20 16:27 amoxicillin Allergy Unknown Verified 12/29/20 16:27 cinnamon Allergy Anaphylaxis Verified 11/29/20 08:46 Review of Systems Review of Systems: Narrative: CONSTITUTIONAL: Denies fever, chills, sweats. EYES: Denies visual changes, redness, discharge. ENT: has rhinorrhea, has congestion, has bilateral ear fullness, has headache, no sore throat, otalgia. CARDIOVASCULAR: Denies chest pain, palpitations, edema. RESPIRATORY: Denies dyspnea, wheezing, cough GASTROINTESTINAL: Denies abdominal pain, nausea, vomiting, diarrhea. GENITOURINARY: Denies dysuria, hematuria, abnormal discharge SKIN: Denies rash or itching. NEUROLOGIC: Denies numbness, or focal weakness. PSYCHIATRIC: Denies anxiety or depression. [facility] Past Medical History Medical History (Updated 12/29/20 @ 17:03 by Rhonda Salgado CNP) Anxiety History of depression History of migraine Surgical History Surgical History History of endometrial ablation Hx of tonsillectomy Family History Family History Grandparent Diabetes mellitus Father Lymphoma Social History Social History Smoking status: Former smoker Second hand tobacco smoke exposure: No Alcohol intake: former Substance use: former Gender identity (if verbalized by the patient): Female Comments At time of signature, I agree with nursing past medical, surgical, social and family history. There is no relevant family history pertinent to the presenting complaint. Exam Narrative: Exam Narrative: GENERAL: This is a well-nourished, well-developed patient, in mild distress. HEAD: normocephalic, atraumatic. EYES: Sclera clear/white. Vision is grossly intact. EARS: External ears normal, auditory canals clear and without drainage, TMs normal without perforation. Hearing grossly intact. NOSE: External nose normal with nasal discharge, nares with redness, has rhinorrhea. THROAT: Mucous membranes moist, posterior pharynx erythema NECK: Neck supple, non-tender CARDIOVASCULAR: Regular rate and rhythm without murmurs, gallops, or rubs. RESPIRATORY: Clear to auscultation. Breath sounds equal bilaterally. No wheezes, rales, or rhonchi. GASTROINTESTINAL: Abdomen soft, SKIN: warm, intact with no suspicious lesions or rash, good texture and
[2020-12-29] MEDS: KETOROLAC (*BKC) 60 MG/2 ML VIAL IM (16:53)
[2021-01-01 19:32] LABS: SARS-CoV-2 RNA PCR Negative
== END 2020-12-29 17:08 | disposition home or self-care (01) ==
PROVIDERS: Emergency Provider Nurse Practitioner; PCP Physician Assistant
DX: J06.9 Acute upper respiratory infection, unspecified (principal); Z20.822 Contact with and (suspected) exposure to COVID-19; Z87.891 Personal history of nicotine dependence; F41.9 Anxiety disorder, unspecified; F32.9 Major depressive disorder, single episode, unspecified
CPT/HCPCS: 87426; 96372; 99213; C9803; G0463; J1885; U0003; U0005

== ENCOUNTER 2021-01-22 10:06 | Emergency (ER) | payer OTHER, SELFPAY ==
--- NOTE | ~2021-01-22 | XR_ITS ---
EXAMINATION: XR tibia fibula LT 2V DATE: 01/22/2021 10:44 INDICATION: Left lower leg pain. Fall. TECHNIQUE: 2 views of left tibia and fibula were obtained. COMPARISON: Left ankle radiographs 06/22/2019 FINDINGS: Bone alignment is normal. No fracture. There is mild osteoarthritis of medial compartment o f left knee. IMPRESSION: 1. No fracture. Reviewed, dictated and finalized at location A. IMPRESSION: 1. No fracture.
--- NOTE | ~2021-01-22 | XR_ITS ---
EXAMINATION: XR hip LT min 3V w AP pelvis DATE: 01/22/2021 10:43 INDICATION: Left hip pain. Fall. TECHNIQUE: An anteroposterior view of the pelvis and 3 views of left hip were obtained. COMPARISON: None. FINDINGS: There is lumbar dextrocurvature and mild spondylosis. No fracture. There is a benign bone i sland in proximal left femur. The hip joint spaces are normal. IMPRESSION: 1. No fracture. Reviewed, dictated and finalized at location A. IMPRESSION: 1. No fracture.
[2021-01-22 10:15] VITALS: BP 146/78; PULSE 64; RESP 18; TEMP 36.2; O2SAT 100
--- NOTE | 2021-01-22 10:48 | ED.GENADULT ---
HPI - General Adult General Chief complaint: Fall Stated complaint: fall, left leg injury Time Seen by Provider: 01/22/21 10:11 Source: patient and family Mode of arrival: ambulatory Limitations: no limitations History of Present Illness HPI narrative: Patient is a 40-year-old female who presents to emergency department for evaluation of left holden pain and hip pain patient was pulling out an object. Patient slipped on grease injuring the left holden and the left hip patient presents per private vehicle in no distress does not appear uncomfortable patient denies other injuries or complaints has not had anything for her symptoms Related Data Home Medications Medication Instructions Recorded Confirmed sertraline 75 mg PO DAILY 03/30/20 12/29/20 Allergies Allergy/AdvReac Type Severity Reaction Status Date / Time clavulanic acid Allergy Mild Unknown Verified 01/22/21 10:19 codeine Allergy Mild RASH Verified 01/22/21 10:19 latex Allergy Mild Unknown Verified 01/22/21 10:19 morphine Allergy Mild Unknown Verified 01/22/21 10:19 omeprazole Allergy Mild Unknown Verified 01/22/21 10:19 Penicillins Allergy Mild Unknown Verified 01/22/21 10:19 propoxyphene Allergy Mild Unknown Verified 01/22/21 10:19 zinc chloride Allergy Mild Unknown Verified 01/22/21 10:19 potassium Allergy Unknown Unknown Verified 01/22/21 10:19 amoxicillin Allergy Unknown Verified 01/22/21 10:19 cinnamon Allergy Anaphylaxis Verified 01/22/21 10:19 Review of Systems Review of Systems: All systems reviewed & are unremarkable except as noted in HPI and below PMFSH Past Medical History Medical History (Updated 01/22/21 @ 11:30 by Bishnu Oakley PA-C) Anxiety History of depression History of migraine Surgical History Surgical History History of endometrial ablation Hx of tonsillectomy Family History Family History Grandparent Diabetes mellitus Father Lymphoma Social History Social History Smoking status: Former smoker Second hand tobacco smoke exposure: No Alcohol intake: former Substance use: former Gender identity (if verbalized by the patient): Female Exam Narrative: Exam Narrative: GENERAL: Well-appearing, well-nourished, and in no acute distress. HEAD: Normocephalic, atraumatic. EYES: PERRLA and EOMI. ENT: Nares clear, no rhinorrhea or epistaxis. Mucous membranes moist. NECK: Supple. No adenopathy or masses. EXTREMITIES: Normal range of motion. No edema. Hematoma to the anterior left holden just above the ankle. Tenderness of the left hip no deformity. No cervical thoracic or lumbar tenderness SKIN: Warm, dry, no rash. NEURO: No focal deficits. Alert and oriented x3. Neurovascularly intact. Capillary refill less than 2 seconds PSYCH: Normal mood and affect. Course Course Emergency Course: Patient in the room no distress aware of case findings treatment plan diagnosis Vital Signs Vital signs: Vital Signs Temperature 97.1 F L 01/22/21 10:15 Pulse Rate 64 01/22/21 10:15 Respiratory Rate 18 01/22/21 10:15 Blood Pressure 146/78 H 01/22/21 10:15 Pulse Oximetry 100 01/22/21 10:15 Temperature 97.1 F L 01/22/21 10:15 Pulse Rate 64 01/22/21 10:15 Respiratory Rate 18 01/22/21 10:15 Blood Pressure 146/78 H 01/22/21 10:15 Pulse Oximetry 100 01/22/21 10:15 Medical Decision Making MDM Narrative Medical decision making narrative: Patients injury or pain is consistent with musculoskeletal etiology. No signs of neurological or vascular compromise on exam. Compartments and tisues are soft without signs of compartment syndrome. Pain is felt appropriate for further evaluation on an outpatient basis. Vital Signs Vital Signs: Vital Signs Temperature 97.1 F L 01/22/21 10:15 Pulse Rate 64 01/22/21 10:15 Respiratory Rat
[2021-01-22] MEDS: IBUPROFEN 600 MG TABLET PO (10:51)
[2021-01-22 11:39] VITALS: BP 138/97; PULSE 60; RESP 15; O2SAT 97
== END 2021-01-22 11:40 | disposition home or self-care (01) ==
PROVIDERS: Emergency Provider Emergency Medicine; PCP Physician Assistant
DX: S80.12XA Contusion of left lower leg, initial encounter (principal); S70.02XA Contusion of left hip, initial encounter; F41.9 Anxiety disorder, unspecified; F32.9 Major depressive disorder, single episode, unspecified; Z87.891 Personal history of nicotine dependence; W01.0XXA Fall on same level from slipping, tripping and stumbling without subsequent striking against object, initial encounter
CPT/HCPCS: 73502; 73590; 99284; A9270

== ENCOUNTER 2021-02-18 22:24 | Emergency (ER) | payer OTHER, SELFPAY ==
--- NOTE | 2021-02-18 22:37 | ED.URI ---
HPI - URI/Sore Throat General Chief Complaint: Headache Stated Complaint: sinus pain Time Seen by Provider: 02/18/21 22:38 Source: patient Mode of arrival: ambulatory Limitations: no limitations History of Present Illness HPI Narrative: 40-year-old woman comes in today complaining of right frontal headache, sore throat, right-sided nasal pressure, and sore throat. Patient states her symptoms started 3 days ago. She has had no fever, difficulty swallowing, difficulty breathing, or visual changes. She denies prior similar symptoms. MD elicited complaint: nasal congestion and sinus pain Onset (ago): day(s) (3) Consistency: constant Severity: severe Able to tolerate fluids by mouth: Yes Relieving factors: nothing Associated symptoms: headache, rhinorrhea, nasal congestion and sore throat Treatments prior to arrival: acetaminophen Related Data Home Medications Medication Instructions Recorded Confirmed sertraline 75 mg PO DAILY 03/30/20 02/18/21 Allergies Allergy/AdvReac Type Severity Reaction Status Date / Time clavulanic acid Allergy Mild Unknown Verified 01/22/21 10:19 codeine Allergy Mild RASH Verified 01/22/21 10:19 latex Allergy Mild Unknown Verified 01/22/21 10:19 morphine Allergy Mild Unknown Verified 01/22/21 10:19 omeprazole Allergy Mild Unknown Verified 01/22/21 10:19 Penicillins Allergy Mild Unknown Verified 01/22/21 10:19 propoxyphene Allergy Mild Unknown Verified 01/22/21 10:19 zinc chloride Allergy Mild Unknown Verified 01/22/21 10:19 potassium Allergy Unknown Unknown Verified 01/22/21 10:19 amoxicillin Allergy Unknown Verified 01/22/21 10:19 cinnamon Allergy Anaphylaxis Verified 01/22/21 10:19 Review of Systems Constitutional: Constitutional: Denies chills, Denies fever(s) and Denies weakness Eyes: Eyes: Denies change in vision and Denies photophobia ENT: Reports as per HPI, Denies dysphagia, Reports nasal congestion and Reports sore throat Cardiovascular: Cardiovascular: Denies chest pain and Denies radiating jaw, neck or arm pain Respiratory: Respiratory: Denies cough and Denies dyspnea Gastrointestinal: Gastrointestinal: Denies nausea and Denies vomiting Neurologic: Denies vertigo, Denies dizziness and Denies syncope Allergic/Immunologic: Allergic/Immunologic: Denies lip swelling, Denies throat swelling and Denies tongue swelling PMFSH Past Medical History Medical History (Updated 02/18/21 @ 22:54 by Stef Garza MD) Anxiety History of depression History of migraine Surgical History Surgical History History of endometrial ablation Hx of tonsillectomy Family History Family History Grandparent Diabetes mellitus Father Lymphoma Social History Social History Smoking status: Former smoker Second hand tobacco smoke exposure: No Alcohol intake: former Substance use: former Gender identity (if verbalized by the patient): Female Exam Const: General: healthy appearing and alert Orientation/consciousness: patient oriented x3 Limitations: no limitations Other: [id number] acute distress. HENMT: Head: normal to inspection Ears: external ears normal, TM's normal bilaterally and EAC's normal General nose exam: Normal nares present Face and sinus: normal facial exam Mouth: Yes moist mucous membranes Throat: posterior oropharynx normal Eyes: Conjunctivae: conjunctivae normal Pupils: Equal, round and reactive pupils present EOM: EOMs intact bilaterally Neck: Neck: normal visual inspection and no lymphadenopathy Resp: Effort & Inspection: normal respiratory effort and not labored Auscultation: clear to auscultation bilaterally, no rales, no rhonchi and no wheezes Cardio: Rate: regular rate Rhythm: regular rhythm Heart sounds: no murmurs Skin: General skin exam: normal color
[2021-02-18 22:41] VITALS: BP 135/80; PULSE 84; RESP 20; TEMP 36.6; O2SAT 98
[2021-02-18] MEDS: KETOROLAC (*BKC) 60 MG/2 ML VIAL IM (22:52)
[2021-02-18 23:04] VITALS: BP 130/81; PULSE 82; RESP 18; O2SAT 96
== END 2021-02-18 23:10 | disposition home or self-care (01) ==
PROVIDERS: Emergency Provider Emergency Medicine
DX: J01.90 Acute sinusitis, unspecified (principal); R51.9 Headache, unspecified
CPT/HCPCS: 96372; 99283; J1885

== ENCOUNTER 2021-06-05 09:42 | Emergency (ER) | payer OTHER, SELFPAY ==
[2021-06-05 09:59] VITALS: BP 128/83; PULSE 73; RESP 16; TEMP 36.8; O2SAT 97
--- NOTE | 2021-06-05 10:43 | ED.URI ---
HPI - URI/Sore Throat General Chief Complaint: Upper Respiratory Infection Stated Complaint: coughing,chest tightness,possible fluid in ears Time Seen by Provider: 06/05/21 10:02 Source: patient and RN notes reviewed Mode of arrival: ambulatory Limitations: no limitations History of Present Illness MD elicited complaint: cough, sore throat and nasal congestion Pertinent past history: COPD Onset (ago): day(s) (4) Consistency: constant Severity: mild Pain scale (0-10): 0 Able to tolerate fluids by mouth: Yes Exacerbating factors: nothing Relieving factors: nothing Context: sick contacts Associated symptoms: nasal congestion, sore throat and cough Treatments prior to arrival: none Related Data Home Medications Medication Instructions Recorded Confirmed sertraline 75 mg PO DAILY 03/30/20 06/05/21 Allergies Allergy/AdvReac Type Severity Reaction Status Date / Time clavulanic acid Allergy Mild Unknown Verified 01/22/21 10:19 codeine Allergy Mild RASH Verified 01/22/21 10:19 latex Allergy Mild Unknown Verified 01/22/21 10:19 morphine Allergy Mild Unknown Verified 01/22/21 10:19 omeprazole Allergy Mild Unknown Verified 01/22/21 10:19 Penicillins Allergy Mild Unknown Verified 01/22/21 10:19 propoxyphene Allergy Mild Unknown Verified 01/22/21 10:19 zinc chloride Allergy Mild Unknown Verified 01/22/21 10:19 potassium Allergy Unknown Unknown Verified 01/22/21 10:19 amoxicillin Allergy Unknown Verified 01/22/21 10:19 cinnamon Allergy Anaphylaxis Verified 01/22/21 10:19 Review of Systems Review of Systems: All systems reviewed & are unremarkable except as noted in HPI and below Constitutional: Constitutional: Reports as per HPI and Reports no additional constitutional complaints Eyes: Eyes: Reports as per HPI and Reports no additional eye complaints ENT: Reports system reviewed and no additional complaints, except as documented and Reports as per HPI Cardiovascular: Cardiovascular: Reports as per HPI and Reports no additional cardiovascular complaints Respiratory: Respiratory: Reports as per HPI, Reports no additional respiratory complaints, Reports chest congestion, Reports cough, Denies dyspnea and Denies wheezing Gastrointestinal: Gastrointestinal: Reports as per HPI and Reports no additional gastrointestinal complaints Genitourinary: Genitourinary: Reports no additional female genitourinary complaints and Reports as per HPI Musculoskeletal: Musculoskeletal: Reports no additional musculoskeletal complaints and Reports as per HPI Integumentary/Breasts: Skin/Breast: Reports system reviewed and no additional complaints, except as docu and Reports as per HPI Neurologic: Reports system reviewed and no additional complaints, except as documented and Reports as per HPI Psychiatric: Psychiatric: Reports no additional psychiatric complaints and Reports as per HPI Endocrine: Endocrine: Reports no additional endocrine complaints and Reports as per HPI Hematologic/Lymphatic: Hematologic/Lymphatic: Reports no additional hematologic/lymphatic complaints Allergic/Immunologic: Allergic/Immunologic: Reports no additional allergic/immunologic complaints and Reports as per HPI PMFSH Past Medical History Medical History Anxiety History of depression History of migraine Surgical History Surgical History History of endometrial ablation Hx of tonsillectomy Family History Family History Grandparent Diabetes mellitus Father Lymphoma Social History Social History Smoking status: Former smoker Second hand tobacco smoke exposure: No Alcohol intake: former Substance use: former Gender identity (if verbalized by the patient): Female Exam Const: General: healthy appearing, no acute dis
[2021-06-05 11:00] VITALS: BP 137/78; PULSE 84; RESP 18; TEMP 36.7; O2SAT 98
== END 2021-06-05 11:05 | disposition home or self-care (01) ==
PROVIDERS: Emergency Provider Emergency Medicine; PCP Physician Assistant
DX: J02.9 Acute pharyngitis, unspecified (principal)
CPT/HCPCS: 99283

== ENCOUNTER 2021-07-04 15:55 | Emergency (ER) | payer OTHER, SELFPAY ==
--- NOTE | 2021-07-04 15:59 | ED.URI ---
HPI - URI/Sore Throat General Chief Complaint: Upper Respiratory Infection Stated Complaint: Loss of taste and smell, congestion Time Seen by Provider: 07/04/21 15:59 Source: patient and RN notes reviewed Related Data Home Medications Medication Instructions Recorded Confirmed sertraline 75 mg PO DAILY 03/30/20 06/05/21 Allergies Allergy/AdvReac Type Severity Reaction Status Date / Time clavulanic acid Allergy Mild Unknown Verified 01/22/21 10:19 codeine Allergy Mild RASH Verified 01/22/21 10:19 latex Allergy Mild Unknown Verified 01/22/21 10:19 morphine Allergy Mild Unknown Verified 01/22/21 10:19 omeprazole Allergy Mild Unknown Verified 01/22/21 10:19 Penicillins Allergy Mild Unknown Verified 01/22/21 10:19 propoxyphene Allergy Mild Unknown Verified 01/22/21 10:19 zinc chloride Allergy Mild Unknown Verified 01/22/21 10:19 potassium Allergy Unknown Unknown Verified 01/22/21 10:19 amoxicillin Allergy Unknown Verified 01/22/21 10:19 cinnamon Allergy Anaphylaxis Verified 01/22/21 10:19 PMFSH Past Medical History Medical History (Updated 06/06/21 @ 00:01 by Reg[facility] Mer[facility] Nette) Anxiety History of depression History of migraine Surgical History Surgical History History of endometrial ablation Hx of tonsillectomy Family History Family History Grandparent Diabetes mellitus Father Lymphoma Social History Social History Smoking status: Former smoker Second hand tobacco smoke exposure: No Alcohol intake: former Substance use: former Gender identity (if verbalized by the patient): Female Discharge Plan Discharge Prescriptions: No Action cephalexin [Keflex] 750 mg capsule 750 mg PO Q8H Qty: 30 RF: 0 Mucinex DM 30-600 mg tablet extended release 12 hr 1 tablet PO Q12H Qty: 20 RF: 0 albuterol sulfate 90 mcg/actuation HFA aerosol inhaler 2 puff inhalation QID Qty: 8.5 RF: 0 sertraline 50 mg Tablet 75 mg PO DAILY RF: 0
== END 2021-07-04 15:59 | disposition left against medical advice (07) ==
LOC: EXPBETH 15:58
PROVIDERS: Emergency Provider Nurse Practitioner Family; PCP Physician Assistant
DX: Z53.21 Procedure and treatment not carried out due to patient leaving prior to being seen by health care provider (principal)
CPT/HCPCS: 99199

== ENCOUNTER 2021-07-05 13:17 | Emergency (ER) | payer OTHER, SELFPAY ==
[2021-07-05 13:50] VITALS: BP 135/93; PULSE 72; RESP 18; TEMP 37.2; O2SAT 98
[2021-07-05 14:41] LABS: SARS-CoV-2 Ag Positive (Negative)
--- NOTE | 2021-07-05 15:18 | ED.HA ---
HPI - Headache General Chief Complaint: Headache Stated Complaint: stomach pain /headache/ diarrhea/Cant taste or sme Source: patient Mode of arrival: ambulatory Limitations: no limitations History of Present Illness HPI Narrative: This is a 40-year-old female with headache with nasal congestion with some crampy abdominal pain with diarrhea with no fever chills no shortness of breath no nausea vomiting, the patient presents to receive a COVID test, patient states that she had her 1st dose of vaccine but not her 2nd at this time. Currently there is no chest pain no shortness of breath no fever chills no nausea vomiting. MD elicited complaint: headache Onset (ago): day(s) Onset description: gradually Related Data Home Medications Medication Instructions Recorded Confirmed sertraline 75 mg PO DAILY 03/30/20 06/05/21 dextroamphetamine-amphetamine 1 tablet PO DAILY 07/05/21 07/05/21 Allergies Allergy/AdvReac Type Severity Reaction Status Date / Time clavulanic acid Allergy Mild Unknown Verified 01/22/21 10:19 codeine Allergy Mild RASH Verified 01/22/21 10:19 latex Allergy Mild Unknown Verified 01/22/21 10:19 morphine Allergy Mild Unknown Verified 01/22/21 10:19 omeprazole Allergy Mild Unknown Verified 01/22/21 10:19 Penicillins Allergy Mild Unknown Verified 01/22/21 10:19 propoxyphene Allergy Mild Unknown Verified 01/22/21 10:19 zinc chloride Allergy Mild Unknown Verified 01/22/21 10:19 potassium Allergy Unknown Unknown Verified 01/22/21 10:19 amoxicillin Allergy Unknown Verified 01/22/21 10:19 cinnamon Allergy Anaphylaxis Verified 01/22/21 10:19 Review of Systems Review of Systems: All systems reviewed & are unremarkable except as noted in HPI and below PMFSH Past Medical History Medical History (Updated 07/05/21 @ 15:21 by Bert Baca MD) Anxiety History of depression History of migraine Surgical History Surgical History History of endometrial ablation Hx of tonsillectomy Family History Family History Grandparent Diabetes mellitus Father Lymphoma Social History Social History Smoking status: Former smoker Second hand tobacco smoke exposure: No Alcohol intake: former Substance use: former Gender identity (if verbalized by the patient): Female Exam Const: General: no acute distress Orientation/consciousness: patient oriented x3 HENMT: Head: normal to inspection and contusion Eyes: Conjunctivae: conjunctivae normal Pupils: Equal, round and reactive pupils present Neck: Neck: normal visual inspection, no lymphadenopathy and no meningeal signs Chest: Chest palpation & inspection: normal inspection of the chest Resp: Effort & Inspection: normal respiratory effort Auscultation: clear to auscultation bilaterally Cardio: Rate: regular rate Rhythm: regular rhythm GI: GI Palp: Yes Soft to palpation Percussion: Yes normal to percussion : General: Yes no CVA tenderness Urinary Catheter: Urinary Catheter: patent and draining Neuro: General: patient oriented x3 and moves all extremities Extrem: General: normal to inspection Psych: Mental Status: mental status grossly normal Course Course Emergency Course: Patient had her COVID test that was reviewed which was positive and advised quarantine and to inform the [facility] health department, drink plenty of fluids. Vital Signs Vital signs: Vital Signs Temperature 37.2 C 07/05/21 13:50 Pulse Rate 72 07/05/21 13:50 Respiratory Rate 18 07/05/21 13:50 Blood Pressure 135/93 H 07/05/21 13:50 Pulse Oximetry 98 07/05/21 13:50 Temperature 37.2 C 07/05/21 13:50 Pulse Rate 72 07/05/21 13:50 Respiratory Rate 18 07/05/21 13:50 Blood Pressure 135/93 H 07/05/21 13:50 Pulse Oximetry 98 07/05/21 13:50 MDM - Headache Lab D
[2021-07-05 15:20] VITALS: BP 130/85; PULSE 74; RESP 18; TEMP 37.1; O2SAT 99
== END 2021-07-05 15:30 | disposition home or self-care (01) ==
PROVIDERS: Emergency Provider Emergency Medicine; PCP Physician Assistant
DX: U07.1 COVID-19 (principal)
CPT/HCPCS: 87426; 99282; 99283; C9803

== ENCOUNTER 2021-11-04 16:38 | Emergency (ER) | payer OTHER, SELFPAY ==
--- NOTE | 2021-11-04 17:10 | ED.BACK ---
HPI - Back Pain/Injury General Chief Complaint: Back Pain/Injury Stated Complaint: back pain Time Seen by Provider: 11/04/21 17:10 Source: patient Mode of arrival: ambulatory Limitations: no limitations History of Present Illness HPI Narrative: 41-year-old woman with history of migraines comes in today complaining of left lower back pain radiating to her buttock and posterior part of her left leg. Pain does radiate below the knee and she has no weakness, numbness or tingling. She states the pain is worse with sitting and lying in his better while standing. She states she has a dull headache that she thinks is a result of her gritting her teeth from the pain in her back. She has no nausea, vomiting or photophobia. MD elicited complaint: back pain Onset (ago): day(s) Timing: constant Severity: moderate Quality: sharp and aching Location: lumbar spine Radiation: buttocks (left) and left upper leg Exacerbating factors: supine positioning and sitting upright Relieving factors: walking Associated symptoms: denies other symptoms Treatments prior to arrival: NSAIDS Related Data Home Medications Medication Instructions Recorded Confirmed sertraline 75 mg PO DAILY 03/30/20 07/05/21 dextroamphetamine-amphetamine 1 tablet PO DAILY 07/05/21 07/05/21 Allergies Allergy/AdvReac Type Severity Reaction Status Date / Time clavulanic acid Allergy Mild Unknown Verified 01/22/21 10:19 codeine Allergy Mild RASH Verified 01/22/21 10:19 latex Allergy Mild Unknown Verified 01/22/21 10:19 morphine Allergy Mild Unknown Verified 01/22/21 10:19 omeprazole Allergy Mild Unknown Verified 01/22/21 10:19 Penicillins Allergy Mild Unknown Verified 01/22/21 10:19 propoxyphene Allergy Mild Unknown Verified 01/22/21 10:19 zinc chloride Allergy Mild Unknown Verified 01/22/21 10:19 potassium Allergy Unknown Unknown Verified 01/22/21 10:19 amoxicillin Allergy Unknown Verified 01/22/21 10:19 cinnamon Allergy Anaphylaxis Verified 01/22/21 10:19 Review of Systems Review of Systems: All systems reviewed & are unremarkable except as noted in HPI and below Eyes: Eyes: Denies change in vision and Denies photophobia ENT: Denies sore throat Gastrointestinal: Gastrointestinal: Denies nausea and Denies vomiting Genitourinary: Genitourinary: Denies nocturia and Denies dysuria Musculoskeletal: Musculoskeletal: Reports back pain, Denies arthralgias and Denies joint swelling Integumentary/Breasts: Skin/Breast: Denies pruritus, Denies erythema and Denies rash Neurologic: Denies vertigo, Denies dizziness and Denies syncope Hematologic/Lymphatic: Hematologic/Lymphatic: Denies easy bleeding and Denies easy bruising Allergic/Immunologic: Allergic/Immunologic: Denies lip swelling and Denies throat swelling [facility] Past Medical History Medical History (Updated 11/04/21 @ 17:22 by Stef Garza MD) Anxiety History of depression History of migraine Surgical History Surgical History History of endometrial ablation Hx of tonsillectomy Family History Family History Grandparent Diabetes mellitus Father Lymphoma Social History Social History Smoking status: Former smoker Second hand tobacco smoke exposure: No Alcohol intake: former Substance use: former Gender identity (if verbalized by the patient): Female Exam Const: General: alert Orientation/consciousness: patient oriented x3 Other: Mild acute distress. HENMT: Head: normal to inspection Ears: external ears normal, TM's normal bilaterally and EAC's normal General nose exam: Normal nares present Face and sinus: normal facial exam Mouth: Yes moist mucous membranes Throat: posterior oropharynx normal Eyes: Conjunctivae: conjunctivae normal Pupils: Equal, round and reactive pupils present EOM: EOMs in
[2021-11-04 17:26] VITALS: BP 153/85; PULSE 63; RESP 20; TEMP 36.9; O2SAT 98
[2021-11-04] MEDS: KETOROLAC (*BKC) 60 MG/2 ML VIAL IM (17:26)
[2021-11-04 17:34] VITALS: BP 148/82; PULSE 62; RESP 20; O2SAT 99
== END 2021-11-04 17:42 | disposition home or self-care (01) ==
PROVIDERS: Emergency Provider Emergency Medicine; PCP Physician Assistant
DX: M54.32 Sciatica, left side (principal)
CPT/HCPCS: 96372; 99283; J1885

== ENCOUNTER 2021-12-29 01:48 | Emergency (ER) | payer OTHER, SELFPAY ==
[2021-12-29 01:52] VITALS: BP 124/74; PULSE 66; RESP 14; TEMP 37.2; O2SAT 98
--- NOTE | 2021-12-29 02:37 | ED.NAVMDI ---
HPI - Nausea/Vomiting/Diarrhea General Chief complaint: Nausea/Vomiting/Diarrhea Stated complaint: EPIGASTRIC CP, NVD X 18 HOURS Time Seen by Provider: 12/29/21 01:53 History of Present Illness HPI Narrative: Patient is a 41-year-old female who presents ER with nausea and vomiting and diarrhea. Ongoing for 18 hours. Reports 4 episodes of loose stools and multiple episodes of emesis. Reports she had a darker episode of emesis prior to arrival. No bright red blood. Reports she last ate some deli roast beef. No known sick contacts. Denies fevers or chills or sweats. Her discomfort is that she is nauseous and has no overt pain in her abdomen. She reports that she did receive some Zofran by EMS which improved her symptoms. Related Data Home Medications Medication Instructions Recorded Confirmed sertraline 75 mg PO DAILY 03/30/20 07/05/21 dextroamphetamine-amphetamine 1 tablet PO DAILY 07/05/21 07/05/21 Allergies Allergy/AdvReac Type Severity Reaction Status Date / Time amoxicillin Allergy Severe Anaphylaxis Verified 12/29/21 02:36 cinnamon Allergy Severe Anaphylaxis Verified 12/29/21 02:36 clavulanic acid Allergy Severe Anaphylaxis Verified 12/29/21 02:38 morphine Allergy Severe Anaphylaxis Verified 12/29/21 02:36 Penicillins Allergy Severe Anaphylaxis Verified 12/29/21 02:36 potassium Allergy Intermediate Hives Verified 12/29/21 02:36 codeine Allergy Mild RASH Verified 12/29/21 02:36 latex Allergy Mild Rash Verified 12/29/21 02:36 omeprazole Allergy Mild Vomiting Verified 12/29/21 02:36 propoxyphene Allergy Mild Hives Verified 12/29/21 02:36 zinc chloride Allergy Mild Unknown Verified 12/29/21 02:36 shrimp Allergy Anaphylaxis Verified 12/29/21 02:38 Review of Systems Review of Systems: All systems reviewed & are unremarkable except as noted in HPI and below Constitutional: Constitutional: Denies chills, Reports fatigue and Denies fever(s) ENT: Denies nasal congestion and Denies sore throat Cardiovascular: Cardiovascular: Denies chest pain, Denies rapid heart rate and Denies radiating jaw, neck or arm pain Respiratory: Respiratory: Denies cough and Denies dyspnea Gastrointestinal: Gastrointestinal: Denies abdominal pain, Denies heartburn, Reports diarrhea, Reports nausea and Reports vomiting Genitourinary: Genitourinary: Denies nocturia, Denies dysuria and Denies flank pain PMFSH Past Medical History Medical History (Updated 12/29/21 @ 04:10 by Pierre Arambula MD) Anxiety History of depression History of migraine Surgical History Surgical History History of endometrial ablation Hx of tonsillectomy Family History Family History Grandparent Diabetes mellitus Father Lymphoma Social History Social History Smoking status: Former smoker Second hand tobacco smoke exposure: No Alcohol intake: former Substance use: former Gender identity (if verbalized by the patient): Female Exam Narrative: GENERAL: Uncomfortable-appearing, well-nourished, and in no acute distress. HEAD: Normocephalic, atraumatic. EYES: PERRL and EOMI. ENT: Mucous membranes moist. CHEST: Clear to auscultation. No respiratory distress. HEART: Regular rate and rhythm. Normal peripheral pulses. ABDOMEN: Soft, nontender, nondistended, normal active bowel sounds. EXTREMITIES: Normal range of motion. No edema. SKIN: Warm, dry, no rash. NEURO: Alert and oriented x3. PSYCH: Normal mood and affect. Course Course Emergency Course: Symptoms improved with antiemetics. Abdomen abdominal exam benign. Labs reassuring. Discharge home. Vital Signs Vital signs: Vital Signs Temperature 98.9 F 12/29/21 01:52 Pulse Rate 66 12/29/21 01:52 Respiratory Rate 14 12/29/21 01:52 Blood Pressure 124/74 12/29/21 01:52 Pulse Oximetry 98 12/29/21 0
[2021-12-29] MEDS: SODIUM CHLORIDE 0.9% IV 1,000 ML 999 ML IV CONT (02:39)
[2021-12-29] MEDS: PROMETHAZINE HCL 25 MG/ML AMPUL 12.5 MG IV PUSH (02:41)
[2021-12-29] MEDS: SODIUM CHLORIDE 0.9% IV 100 ML 500 ML (02:45)
[2021-12-29 02:51] LABS: Basophils Percent Auto 0.1 % (0.2-1.2); Eosinophils Percent Auto 0.5 % (0-4.4); Hematocrit 39.6 % (37.0-47.0); Hemoglobin 13.4 g/dL (12.0-15.0); Immature Granulocyte Absolute 0.02 K/mm3 (0.00-0.031); Immature Granulocyte Percent A 0.3 % (0-0.5); Lymphocytes Percent Auto 8.8 % (18.3-44.2); Mean Corpuscular HGB Conc 33.8 g/dl (32-36); Mean Corpuscular Hemoglobin 30.7 pg (26-34); Mean Corpuscular Volume 90.8 fl (80-100); Mean Platelet Volume 8.6 fl (7.4-10.4); Monocytes Absolute Auto 0.4 K/mm3 (0.1-0.6); Monocytes Percent Auto 4.4 % (2.6-8.5); Neutrophils Absolute Auto 6.8 K/mm3 (1.3-6.7); Neutrophils Percent Auto 85.9 % (45.5-73.1); Platelet Count Result 179 k/mm3 (150-375); Red Blood Count 4.36 M/mm3 (4.2-5.4); Red Cell Distribution Width 12.6 % (11.5-14.5)
[2021-12-29 03:14] LABS: Add Urine Microscopic? NO; Appearance Urine Clear (Clear); Bilirubin Urine Negative (Negative); Blood Urine Negative (Negative); Color Urine Yellow (Yellow); Glucose Urine UA Negative (Negative); Ketones Urine Negative (Negative); Leukocyte Esterase Ur Negative LEU/UL (Negative); Nitrate Urine Negative (Negative); Protein Urine Negative (Negative); Specific Grav Ur 1.025 (1.001-1.035); Urobilinogen Urine Negative mg/dL (<2.0)
[2021-12-29 03:15] LABS: Alanine Aminotransferase 14 U/L (4-35); Albumin Level 4.1 g/dL (3.5-5.1); Alkaline Phosphatase 58 U/L (38-126); Anion Gap 8 mmol/L (8-16); Aspartate Amino Transferase 18 U/L (14-36); Bilirubin,Total 0.4 mg/dL (0.2-1.3); Blood Urea Nitrogen 16 mg/dL (7-17); Carbon Dioxide 21 mmol/L (22-30); Chloride 108 mmol/L (98-107); Estimated CRCL calculation 81 ml/min; Estimated Glomerular Filt Rate > 60; Glucose 115 mg/dL (65-110); Lipase 190 U/L (23-300); Potassium 3.9 mmol/L (3.4-5.0); Sodium 137 mmol/L (137-145)
[2021-12-29] MEDS: DICYCLOMINE HCL 10 MG CAPSULE 20 MG PO (04:56)
[2021-12-29 05:25] VITALS: PULSE 68; RESP 14; O2SAT 98
== END 2021-12-29 05:25 | disposition home or self-care (01) ==
PROVIDERS: Emergency Provider Emergency Medicine; PCP Physician Assistant
DX: K52.9 Noninfective gastroenteritis and colitis, unspecified (principal); F32.A Depression, unspecified; F41.9 Anxiety disorder, unspecified; Z87.891 Personal history of nicotine dependence
CPT/HCPCS: 36415; 80053; 81003; 83690; 85025; 96361; 96374; 99284; A9270; J2550; J7030

== ENCOUNTER 2022-02-26 20:36 | Emergency (ER) | payer OTHER, SELFPAY ==
[2022-02-26 20:45] VITALS: BP 137/81; PULSE 63; RESP 18; TEMP 36.4; O2SAT 97
--- NOTE | 2022-02-26 20:56 | ED.NAVMDI ---
HPI - Nausea/Vomiting/Diarrhea General Chief complaint: Nausea/Vomiting/Diarrhea Stated complaint: AMB Time Seen by Provider: 02/26/22 20:56 Source: patient and EMS History of Present Illness HPI Narrative: 41-year-old female with a history of migraine, anxiety / depression presents to the ER with a 12 hour history of -- generalized abdominal pain -- nausea with multiple episodes of yellow vomitus. she vomited 10 times today. -- Multiple episodes of watery. No blood or mucus noted. No fever. No hematemesis/ melena. The patient has not eaten anything out of the ordinary. No one else sick at home. Passed urine 3 hours ago. patient received 8 mg of Zofran EN route to the hospital with resolution of her nausea and vomiting. MD elicited complaint: nausea, vomiting, diarrhea and abdominal pain Pertinent past history: anorexia Onset (ago): hour(s) ( Started 12 hours ago) Description of vomiting: watery and bilious Description of diarrhea: watery Associated nausea: Yes Associated abdominal pain: Yes Location of pain: diffuse Radiation: diffuse Pain consistency: constant Quality: cramping Exacerbating factors: none Relieving factors: none Associated symptoms: denies other symptoms and anxiety Related Data Home Medications Medication Instructions Recorded Confirmed sertraline 75 mg PO DAILY 03/30/20 02/26/22 Allergies Allergy/AdvReac Type Severity Reaction Status Date / Time amoxicillin Allergy Severe Anaphylaxis Verified 12/29/21 02:36 cinnamon Allergy Severe Anaphylaxis Verified 12/29/21 02:36 clavulanic acid Allergy Severe Anaphylaxis Verified 12/29/21 02:38 morphine Allergy Severe Anaphylaxis Verified 12/29/21 02:36 Penicillins Allergy Severe Anaphylaxis Verified 12/29/21 02:36 potassium Allergy Intermediate Hives Verified 12/29/21 02:36 codeine Allergy Mild RASH Verified 12/29/21 02:36 latex Allergy Mild Rash Verified 12/29/21 02:36 omeprazole Allergy Mild Vomiting Verified 12/29/21 02:36 propoxyphene Allergy Mild Hives Verified 12/29/21 02:36 zinc chloride Allergy Mild Unknown Verified 12/29/21 02:36 shrimp Allergy Anaphylaxis Verified 12/29/21 02:38 Review of Systems Review of Systems: All systems reviewed & are unremarkable except as noted in HPI and below Constitutional: Constitutional: Reports as per HPI, Reports no additional constitutional complaints and Reports weakness Eyes: Eyes: Reports as per HPI and Reports no additional eye complaints ENT: Reports system reviewed and no additional complaints, except as documented and Reports as per HPI Cardiovascular: Cardiovascular: Reports as per HPI and Reports no additional cardiovascular complaints Respiratory: Respiratory: Reports as per HPI and Reports no additional respiratory complaints Gastrointestinal: Gastrointestinal: Reports as per HPI, Reports no additional gastrointestinal complaints, Reports abdominal pain, Reports diarrhea, Reports nausea and Reports vomiting Genitourinary: Genitourinary: Reports no additional female genitourinary complaints and Reports as per HPI Musculoskeletal: Musculoskeletal: Reports no additional musculoskeletal complaints and Reports as per HPI Integumentary/Breasts: Skin/Breast: Reports system reviewed and no additional complaints, except as docu and Reports as per HPI Neurologic: Reports system reviewed and no additional complaints, except as documented and Reports as per HPI Psychiatric: Psychiatric: Reports no additional psychiatric complaints, Reports as per HPI, Reports anxiety and Reports depression Endocrine: Endocrine: Reports no additional endocrine complaints Allergic/Immunologic: Allergic/Immunologic: Reports no additional allergic/immunologic complaints and Reports as per HPI [facility] Past Medical History Medical History (Updated 02/26/22 @ 21:40 by Sadi Oconnell MD) Anxiety History of depression History of migraine Surgical History Surgical History (Reviewed 02/26/22 @ 21:14 by Sadi Sanchez Cha
[2022-02-26] MEDS: LACTATED RINGERS 1,000 ML 999 ML IV CONT (21:19)
[2022-02-26 21:26] LABS: Basophils Absolute Auto 0.02 K/mm3 (0.00-0.10); Basophils Percent Auto 0.2 % (0.0-1.0); Eosinophils Absolute Auto 0.06 K/mm3 (0.02-0.50); Eosinophils Percent Auto 0.7 % (1.0-6.0); Hematocrit 36.7 % (35.0-49.0); Hemoglobin 12.5 g/dL (12.0-15.0); Immature Granulocyte Absolute 0.04 K/mm3 (0.00-0.00); Immature Granulocyte Percent A 0.5 % (0.0-0.0); Lymphocytes Percent Auto 7.3 % (18.0-42.0); Mean Corpuscular HGB Conc 34.1 g/dL (32.0-36.0); Mean Corpuscular Volume 91.1 fL (78.0-102.0); Mean Platelet Volume 8.4 fl (9.2-11.8); Monocytes Percent Auto 2.4 % (2.0-11.0); Neutrophils Absolute Auto 7.3 K/mm3 (1.7-7.2); Neutrophils Percent Auto 88.9 % (50.0-70.0); Platelet Count Result 187 K/mm3 (150-420); Red Blood Count 4.03 M/mm3 (4.20-5.40); Red Cell Distribution Width 12.8 % (11.6-14.4); White Blood Count 8.3 K/mm3 (4.8-10.8)
[2022-02-26 21:27] LABS: Appearance Urine Clear (Clear); Bilirubin Urine Negative (Negative); Color Urine Light Yellow (Yellow); Glucose Urine UA Negative (Negative); Ketones Urine Negative (Negative); Leukocyte Esterase Ur Negative (Negative); Nitrate Urine Negative (Negative); Protein Urine Negative (Negative); Specific Grav Ur >= 1.030 (1.010-1.020); Urobilinogen Urine 0.2 mg/dL (0.2-1.0)
[2022-02-26 21:33] LABS: Add Urine Microscopic? YES; Bacteria Urine Trace /hpf; Blood Urine Trace-Intact (Negative); Pregnancy On Board Control Positive; RBC Urine 0-2 /hpf (0-2); Squamous Epithelial Cell Urine Rare /hpf (Few); Urine Pregnancy Test Negative; WBC Urine 0-3 /hpf (0-3)
[2022-02-26 21:39] LABS: INR 1.1; Prothrombin Time 11.3 Seconds (9.50-12.10)
[2022-02-26 21:43] LABS: SARS-CoV-2 Ag Negative (Negative)
[2022-02-26 21:48] LABS: Alanine Aminotransferase 17 U/L (14-59); Albumin Level 3.8 g/dL (3.4-5.0); Alkaline Phosphatase 65 U/L (46-116); Anion Gap 11 mmol/L (8-16); Aspartate Amino Transferase 12 U/L (15-37); Bilirubin,Total 0.4 mg/dL (0.00-1.00); Blood Urea Nitrogen 10 mg/dL (7-18); Calcium 8.2 mg/dL (8.5-10.1); Carbon Dioxide 23 mmol/L (21-32); Chloride 104 mmol/L (98-108); Estimated CRCL calculation 82 ml/min; Estimated Glomerular Filt Rate > 60; Glucose 104 mg/dL (70-99); Lactic Acid Reflex 0.5 mmol/L (0.4-2.0); Lipase 158 U/L (73-393); Osmolality Calculated 285 mOsm/kg (285-295); Potassium 3.8 mmol/L (3.5-5.1); Sodium 138 mmol/L (136-145); Total Protein 6.8 g/dL (6.4-8.2)
[2022-02-26 21:49] LABS: Troponin I 7.8 ng/L (0.00-60.4)
[2022-02-26] MEDS: FAMOTIDINE 20 MG/2 ML VIAL IV PUSH (21:57)
[2022-02-26] MEDS: ACETAMINOPHEN 325 MG TABLET 650 MG PO (22:22)
[2022-02-26] MEDS: ONDANSETRON INJ 4 MG/2 ML VIAL IV PUSH (22:22)
[2022-02-26 22:29] VITALS: BP 130/78; PULSE 72; RESP 18; TEMP 36.6; O2SAT 98
== END 2022-02-26 22:35 | disposition home or self-care (01) ==
PROVIDERS: Emergency Provider Internal Medicine Critical Care Medicine; PCP Physician Assistant
DX: K52.9 Noninfective gastroenteritis and colitis, unspecified (principal); E86.0 Dehydration; Z20.822 Contact with and (suspected) exposure to COVID-19
CPT/HCPCS: 36415; 80053; 81001; 81025; 83605; 83690; 84484; 85025; 85610; 87426; 96361; 96374; 96375; 99284; A9270; C9803; J2405; J7120

== ENCOUNTER 2022-03-01 06:39 | Emergency (ER) | payer OTHER, SELFPAY ==
--- NOTE | ~2022-03-01 | CT_ITS ---
EXAMINATION: CT abdomen pelvis w con EXAM DATE: 03/01/2022 08:38 INDICATION: LLQ, LUQ pain, N/V x3 days . TECHNIQUE: Spiral CT of the abdomen and pelvis was performed following intravenous injection of 60 mL Omnipaque 350. Axial, coronal and sagittal images of the abdomen and pelvis were reviewed. The dos e-length product (DLP) for this examination was 1042.05 mGy-cm. The exposure was tailored according to patient size (auto mA exposure control), and iterative reconstruction (ASIR) was used as additiona l dose reduction technique. Comparison is made to prior examination from 05/18/2019. FINDINGS: The liver, spleen, adrenal glands and pancreas are unremarkable. Gallbladder is unremarkab le. No biliary obstruction. Portal and splenic veins are patent. Kidneys enhance symmetrically. T here is no hydronephrosis. The uterus is unremarkable. The bladder is unremarkable. There is no retroperitoneal or pelvic lymphadenopathy. There is mild scattered arteriosclerotic disease. The appendix is normal. The stomach and small bowel are unremarkable. There is expected amount of c olonic stool. No free intraperitoneal gas. The heart is normal in size. There are no pericardial or pleural effusions. The lung bases are unremarkable. There are no osteoblastic or osteolytic les ions identified. IMPRESSION: 1. No acute intra-abdominal findings. Reviewed, dictated and finalized at location A.
[2022-03-01 06:53] VITALS: BP 141/87; PULSE 57; RESP 16; TEMP 36.6; O2SAT 98
--- NOTE | 2022-03-01 07:23 | PC.NURSE ---
nurse to nurse report completed with ADAN Hawk
[2022-03-01 07:40] LABS: Hematocrit 34.9 % (35.0-49.0); Mean Corpuscular HGB Conc 34.4 g/dL (32.0-36.0); Mean Corpuscular Hemoglobin 30.8 pg (27.0-31.0); Mean Corpuscular Volume 89.7 fL (78.0-102.0); Mean Platelet Volume 8.4 fl (9.2-11.8); Platelet Count Result 207 K/mm3 (150-420); Red Blood Count 3.89 M/mm3 (4.20-5.40); Red Cell Distribution Width 12.7 % (11.6-14.4); White Blood Count 2.7 K/mm3 (4.8-10.8)
[2022-03-01] MEDS: KETOROLAC (*BKC) 60 MG/2 ML VIAL IM (07:48)
[2022-03-01] MEDS: SODIUM CHLORIDE 0.9% IV 500 ML 999 ML IV CONT (07:49)
[2022-03-01 07:56] LABS: Alanine Aminotransferase 19 U/L (14-59); Albumin Level 3.5 g/dL (3.4-5.0); Alkaline Phosphatase 58 U/L (46-116); Anion Gap 6 mmol/L (8-16); Aspartate Amino Transferase 13 U/L (15-37); Bilirubin,Total 0.3 mg/dL (0.00-1.00); Blood Urea Nitrogen 10 mg/dL (7-18); Calcium 8.1 mg/dL (8.5-10.1); Carbon Dioxide 26 mmol/L (21-32); Chloride 106 mmol/L (98-108); Estimated CRCL calculation 79 ml/min; Estimated Glomerular Filt Rate > 60; Glucose 88 mg/dL (70-99); Lipase 134 U/L (73-393); Osmolality Calculated 284 mOsm/kg (285-295); Potassium 3.9 mmol/L (3.5-5.1); Sodium 138 mmol/L (136-145); Total Protein 6.5 g/dL (6.4-8.2)
[2022-03-01 07:59] LABS: Lactic Acid Reflex 0.4 mmol/L (0.4-2.0)
--- NOTE | 2022-03-01 08:03 | ED.ABDPAIN ---
HPI - Abdominal Pain General Chief Complaint: Abdominal Pain Stated Complaint: abd pain for 3 days/Eye pain Time Seen by Provider: 03/01/22 07:02 Source: patient and RN notes reviewed Mode of arrival: ambulatory Limitations: no limitations History of Present Illness MD elicited complaint: abdominal pain and other Pertinent past history: gastritis Onset (ago): day(s) (3) Pain Consistency: constant and colicky Location: epigastric and LLQ Severity: moderate Pain scale (0-10): 9 Quality: cramping, aching and dull Radiation: LLQ Migration to: no migration Exacerbating factors: nothing Relieving factors: nothing Associated symptoms: nausea Related Data Patient : No Home Medications Medication Instructions Recorded Confirmed sertraline 75 mg PO DAILY 03/30/20 03/01/22 Allergies Allergy/AdvReac Type Severity Reaction Status Date / Time amoxicillin Allergy Severe Anaphylaxis Verified 03/01/22 07:12 cinnamon Allergy Severe Anaphylaxis Verified 03/01/22 07:12 clavulanic acid Allergy Severe Anaphylaxis Verified 03/01/22 07:12 morphine Allergy Severe Anaphylaxis Verified 03/01/22 07:12 Penicillins Allergy Severe Anaphylaxis Verified 03/01/22 07:12 potassium Allergy Intermediate Hives Verified 03/01/22 07:12 codeine Allergy Mild RASH Verified 03/01/22 07:12 latex Allergy Mild Rash Verified 03/01/22 07:12 omeprazole Allergy Mild Vomiting Verified 03/01/22 07:12 propoxyphene Allergy Mild Hives Verified 03/01/22 07:12 zinc chloride Allergy Mild Unknown Verified 03/01/22 07:12 pantoprazole [From Protonix] Allergy Hives Verified 03/01/22 07:59 shrimp Allergy Anaphylaxis Verified 03/01/22 07:12 Review of Systems Review of Systems: All systems reviewed & are unremarkable except as noted in HPI and below PMFSH Past Medical History Medical History Anxiety Conjunctivitis Gastritis History of depression History of migraine Surgical History Surgical History History of endometrial ablation Hx of tonsillectomy Family History Family History Grandparent Diabetes mellitus Father Lymphoma Social History Social History Smoking status: Former smoker Second hand tobacco smoke exposure: No Alcohol intake: former Substance use: former Gender identity (if verbalized by the patient): Female Exam Const: General: healthy appearing, no acute distress and alert Nutritional Appearance: obese Orientation/consciousness: patient oriented x3 HENMT: Ears: external ears normal, TM's normal bilaterally and EAC's normal General nose exam: Normal external nose present and Normal nares present Face and sinus: normal facial exam and sinuses nontender Mouth: Yes moist mucous membranes Eyes: Conjunctivae: conjunctivae normal Pupils: Equal, round and reactive pupils present EOM: EOMs intact bilaterally Other: minimal lateral right eye redness. vision grossly normal Neck: Neck: normal visual inspection and no lymphadenopathy Chest: Chest palpation & inspection: normal inspection of the chest Resp: Effort & Inspection: normal respiratory effort Auscultation: clear to auscultation bilaterally Cardio: Rate: regular rate Rhythm: regular rhythm GI: GI Palp: Yes Soft to palpation and Yes Tenderness to palpation present (GI) (minimal epigastric tenderness and LLQ. ) Auscultation: normal bowel sounds : General: Yes bladder normal to palpation and Yes no CVA tenderness Back/Spine/Pelvis: Back: no CVA tenderness Skin: General skin exam: normal color Rashes: no rashes Neuro: General: patient oriented x3, moves all extremities, no meningeal signs, no focal motor deficits and CN's II-XI intact bilaterally Extrem: General: normal to inspection and no pedal edema Psych: Appearance: grossly
[2022-03-01 08:09] LABS: SPREG INTERNAL CONTROL Positive; Serum Qual hCG Negative; Total Cells Counted 100
[2022-03-01 08:10] LABS: Band Neutrophils Percent 0 % (0-6); Basophils Absolute Manual 0.05 K/mm3 (0-0.1); Basophils Percent Manual 2 % (0-1); Eosinophils Percent Manual 4 % (1-6); Lymphocytes Absolute Manual 0.89 K/mm3 (1.1-4.5); Lymphocytes Percent Manual 33 % (18-44); Monocytes Absolute Manual 0.18 K/mm3 (0.1-0.90); Monocytes Percent Manual 7 % (3-9); Neutrophils Absolute Manual 1.45 K/mm3 (1.7-7.2); Neutrophils Percent Manual 54 % (46-73); Platelet Estimate Adequate (Adequate)
[2022-03-01 08:13] LABS: Add Urine Microscopic? NO; Appearance Urine Clear (Clear); Bilirubin Urine Negative (Negative); Blood Urine Negative (Negative); Color Urine Light Yellow (Yellow); Glucose Urine UA Negative (Negative); Ketones Urine Negative (Negative); Leukocyte Esterase Ur Negative LEU/UL (Negative); Nitrate Urine Negative (Negative); Protein Urine Negative (Negative); Specific Grav Ur <= 1.005 (1.010-1.020); Urobilinogen Urine 0.2 mg/dL (0.2-1.0); pH Urine 6.5 (5.0-8.0)
[2022-03-01 08:35] VITALS: BP 132/74; PULSE 65; RESP 14; TEMP 36.8; O2SAT 98
[2022-03-01 09:30] VITALS: BP 144/96; PULSE 58; RESP 16; TEMP 36.7; O2SAT 100
[2022-03-01] MEDS: ERYTHROMYCIN OPHTH OINTMENT 3.5 GM TUBE 1 APPLIC RIGHT EYE (09:30)
== END 2022-03-01 09:32 | disposition home or self-care (01) ==
PROVIDERS: Emergency Medicine; Emergency Provider Emergency Medicine; PCP Physician Assistant
DX: K29.50 Unspecified chronic gastritis without bleeding (principal); H10.9 Unspecified conjunctivitis
CPT/HCPCS: 36415; 74177; 80053; 81003; 83605; 83690; 84703; 85025; 96360; 96372; 99284; A9270; C9113; J1885; J7040; Q9967

== ENCOUNTER 2022-04-21 12:08 | Emergency (ER) | payer OTHER, SELFPAY ==
[2022-04-21 12:16] VITALS: BP 142/88; PULSE 65; RESP 18; TEMP 36.8; O2SAT 98
--- NOTE | 2022-04-21 12:23 | ED.HA ---
HPI - Headache General Chief Complaint: Headache Stated Complaint: chronic migraine Time Seen by Provider: 04/21/22 12:23 Source: patient, RN notes reviewed and old records reviewed Mode of arrival: ambulatory Limitations: no limitations History of Present Illness HPI Narrative: 41-year-old female who presents to [facility] with complaints of migraine pain to behind right eye and right side of her head for the past 6 days which has been associated with nausea with no vomiting. Patient reports that she has taken some Excedrin migraine, Ibuprofen and Tylenol and also some Zofran for her symptoms but no resolution. She reports that she has had photosensitivity with her headache. Patient reports that she is not on any daily migraine preventative medications such as Inderal or Topamax. MD elicited complaint: headache and migraine Pertinent past history: migraines Onset (ago): day(s) (6) Treatments prior to arrival: acetaminophen, ibuprofen and other ( Zofran) Related Data Home Medications Medication Instructions Recorded Confirmed sertraline 50 mg tablet 75 mg PO DAILY 03/30/20 03/01/22 Allergies Allergy/AdvReac Type Severity Reaction Status Date / Time amoxicillin Allergy Severe Anaphylaxis Verified 04/21/22 12:23 cinnamon Allergy Severe Anaphylaxis Verified 04/21/22 12:23 clavulanic acid Allergy Severe Anaphylaxis Verified 04/21/22 12:23 morphine Allergy Severe Anaphylaxis Verified 04/21/22 12:23 Penicillins Allergy Severe Anaphylaxis Verified 04/21/22 12:23 potassium Allergy Intermediate Hives Verified 04/21/22 12:23 codeine Allergy Mild RASH Verified 04/21/22 12:23 latex Allergy Mild Rash Verified 04/21/22 12:23 omeprazole Allergy Mild Vomiting Verified 04/21/22 12:23 propoxyphene Allergy Mild Hives Verified 04/21/22 12:23 zinc chloride Allergy Mild Unknown Verified 03/01/22 07:12 pantoprazole [From Protonix] Allergy Hives Verified 03/01/22 07:59 shrimp Allergy Anaphylaxis Verified 03/01/22 07:12 Review of Systems Review of Systems: CONSTITUTIONAL: Denies fever, chills, or sweats. EYES: Denies visual changes, redness, or discharge.Photosensitivity with migraine headache. ENT: Denies rhinorrhea, congestion, sore throat, or otalgia. CARDIOVASCULAR: Denies chest pain, palpitations, or edema. RESPIRATORY: Denies cough or dyspnea. GASTROINTESTINAL: Denies abdominal pain, positive for nausea,no vomiting, or diarrhea. GENITOURINARY: Denies dysuria or hematuria. SKIN: Denies rash or itching. MUSCULOSKELETAL: Denies back pain, joint pain, or myalgia. NEUROLOGIC:Positive for 6 day duration reported migraine to behind right eye and right side of head.no reported numbness, or weakness. PSYCHIATRIC: Positive for history of anxiety or depression. All systems reviewed & are unremarkable except as noted in HPI and below PMFSH Past Medical History Medical History Anxiety Conjunctivitis Gastritis History of depression History of migraine Surgical History Surgical History History of endometrial ablation Hx of tonsillectomy Family History Family History Grandparent Diabetes mellitus Father Lymphoma Social History Social History Smoking status: Former smoker Second hand tobacco smoke exposure: No Alcohol intake: former Substance use: former Gender identity (if verbalized by the patient): Female Comments At time of signature, agree with nursing past medical, surgical, social and family history. There is no relevant family history pertinent to the presenting complaint Exam Narrative: GENERAL: Well-appearing, well-nourished, obese and in no acute distress. HEAD: Normocephalic, atraumatic. EYES: PERRLA and EOMI.some photophobia reported with headache pain, no nystagmus noted ENT: Nare
[2022-04-21] MEDS: KETOROLAC (*BKC) 60 MG/2 ML VIAL IM (12:28)
== END 2022-04-21 12:53 | disposition home or self-care (01) ==
PROVIDERS: Emergency Provider Registered Nurse; PCP Physician Assistant
DX: G43.909 Migraine, unspecified, not intractable, without status migrainosus (principal); F41.9 Anxiety disorder, unspecified; F32.A Depression, unspecified
CPT/HCPCS: 96372; 99213; G0463; J1885

== ENCOUNTER 2022-05-18 19:13 | Emergency (ER) | payer OTHER, SELFPAY ==
[2022-05-18 19:37] VITALS: BP 144/75; PULSE 74; RESP 16; TEMP 37.2; O2SAT 100
--- NOTE | 2022-05-18 19:55 | ED.GENADULT ---
HPI - General Adult General Chief complaint: Headache Stated complaint: Headache Source: patient Mode of arrival: ambulatory Limitations: no limitations History of Present Illness HPI narrative: Patient presents for evaluation of headache for the last week and a half. She has a history of migraines and this feels similar. Pain is in the frontal region, described as sharp, rated 10 out of 10 in severity. She has associated photophobia but no nausea or vomiting. In the past Toradol alleviates her pain. She has tried Excedrin with some improvement in her symptoms or after. She was on Topamax in the past but it caused anxiety. No additional complaints or concerns. Related Data Home Medications Medication Instructions Recorded Confirmed sertraline 50 mg tablet 75 mg PO DAILY 03/30/20 03/01/22 Allergies Allergy/AdvReac Type Severity Reaction Status Date / Time amoxicillin Allergy Severe Anaphylaxis Verified 04/21/22 12:23 cinnamon Allergy Severe Anaphylaxis Verified 04/21/22 12:23 clavulanic acid Allergy Severe Anaphylaxis Verified 04/21/22 12:23 morphine Allergy Severe Anaphylaxis Verified 04/21/22 12:23 Penicillins Allergy Severe Anaphylaxis Verified 04/21/22 12:23 potassium Allergy Intermediate Hives Verified 04/21/22 12:23 codeine Allergy Mild RASH Verified 04/21/22 12:23 latex Allergy Mild Rash Verified 04/21/22 12:23 omeprazole Allergy Mild Vomiting Verified 04/21/22 12:23 propoxyphene Allergy Mild Hives Verified 04/21/22 12:23 zinc chloride Allergy Mild Unknown Verified 03/01/22 07:12 pantoprazole [From Protonix] Allergy Hives Verified 03/01/22 07:59 shrimp Allergy Anaphylaxis Verified 03/01/22 07:12 Review of Systems Review of Systems: CONSTITUTIONAL: Denies fever, chills, or sweats. EYES: Reports photophobia. Denies redness, or discharge. ENT: Denies rhinorrhea, congestion, sore throat, or otalgia. CARDIOVASCULAR: Denies chest pain, palpitations, or edema. RESPIRATORY: Denies cough or dyspnea. GASTROINTESTINAL: Denies abdominal pain, nausea, vomiting, or diarrhea. GENITOURINARY: Denies dysuria or hematuria. SKIN: Denies rash or itching. MUSCULOSKELETAL: Denies back pain, joint pain, or myalgia. NEUROLOGIC: Reports headache. Denies numbness, dizziness, or weakness. PSYCHIATRIC: Denies anxiety or depression. [facility] Past Medical History Medical History Anxiety Conjunctivitis Gastritis History of depression History of migraine Surgical History Surgical History History of endometrial ablation Hx of tonsillectomy Family History Family History Grandparent Diabetes mellitus Father Lymphoma Social History Social History Smoking status: Former smoker Second hand tobacco smoke exposure: No Alcohol intake: former Substance use: former Gender identity (if verbalized by the patient): Female Exam Narrative: GENERAL: Well-appearing, well-nourished, and in no acute distress. HEAD: Normocephalic, atraumatic. EYES: PERRLA and EOMI. ENT: Nares clear, no rhinorrhea or epistaxis. Mucous membranes moist. Oropharynx without tonsillar hypertrophy exudate or other lesions. Bilateral TMs pearly [place] nonbulging NECK: Supple. No adenopathy or masses. No carotid bruits or JVD CHEST: Clear to auscultation. No respiratory distress. No wheezes rales or rhonchi HEART: Regular rate and rhythm. No murmur heard. Normal peripheral pulses. ABDOMEN: Soft, nontender, nondistended, normal active bowel sounds. EXTREMITIES: Normal range of motion. No edema. SKIN: Warm, dry, no rash. NEURO: Normal [id number] exam. Able to perform rapid alternating movements without difficulty. Comprehensive neurological exam intact. No focal deficits. Alert and oriented x3. PSYCH:
[2022-05-18] MEDS: KETOROLAC (*BKC) 60 MG/2 ML VIAL IM (19:57)
== END 2022-05-18 20:10 | disposition home or self-care (01) ==
PROVIDERS: Emergency Provider Nurse Practitioner; PCP Physician Assistant
DX: G43.909 Migraine, unspecified, not intractable, without status migrainosus (principal); Z87.891 Personal history of nicotine dependence; F41.9 Anxiety disorder, unspecified; F32.A Depression, unspecified
CPT/HCPCS: 96372; 99213; G0463; J1885

== ENCOUNTER 2022-05-26 12:38 | Emergency (ER) | payer OTHER, SELFPAY ==
--- NOTE | 2022-05-26 12:42 | ED.BACK ---
HPI - Back Pain/Injury General Chief Complaint: Back Pain/Injury Stated Complaint: BACK PAIN DOWN LEG Time Seen by Provider: 05/26/22 12:42 Source: patient Mode of arrival: ambulatory Limitations: no limitations History of Present Illness HPI Narrative: Ms. Milligan is a 41-year-old female patient presenting to the clinic today with complaints of left lower back pain and numbness in the left hip and leg. She reports this is been going on for approximately 2 weeks. Nothing seems to alleviate the symptoms however standing makes the symptoms worse. She currently rates the pain 7 out of 10. Has seen the chiropractor twice for adjustments and this has not helped. Pain is worse when standing. She denies any saddle anesthesia or loss of bowel or bladder. She is concerned that this pain is coming from her kidney as the chiropractor visits did not help. She denies any urinary symptoms. Related Data Home Medications Medication Instructions Recorded Confirmed sertraline 50 mg tablet 75 mg PO DAILY 03/30/20 05/18/22 Allergies Allergy/AdvReac Type Severity Reaction Status Date / Time amoxicillin Allergy Severe Anaphylaxis Verified 05/26/22 12:44 cinnamon Allergy Severe Anaphylaxis Verified 05/26/22 12:44 clavulanic acid Allergy Severe Anaphylaxis Verified 05/26/22 12:44 morphine Allergy Severe Anaphylaxis Verified 05/26/22 12:44 Penicillins Allergy Severe Anaphylaxis Verified 05/26/22 12:44 potassium Allergy Intermediate Hives Verified 05/26/22 12:44 codeine Allergy Mild RASH Verified 05/26/22 12:44 latex Allergy Mild Rash Verified 05/26/22 12:44 omeprazole Allergy Mild Vomiting Verified 05/26/22 12:44 propoxyphene Allergy Mild Hives Verified 05/26/22 12:44 zinc chloride Allergy Mild Unknown Verified 05/26/22 12:44 pantoprazole [From Protonix] Allergy Hives Verified 05/26/22 12:44 shrimp Allergy Anaphylaxis Verified 05/26/22 12:44 Review of Systems Review of Systems: Pertinent positives per HPI. Patient denies any fever, chills, rash, headache, visual changes, dizziness, cough, runny nose, sore throat, shortness of breath, chest pain, palpitations, nausea, vomiting, diarrhea, constipation, abdominal pain, or any urinary issues. PMFSH Past Medical History Medical History Anxiety Conjunctivitis Gastritis History of depression History of migraine Surgical History Surgical History History of endometrial ablation Hx of tonsillectomy Family History Family History Grandparent Diabetes mellitus Father Lymphoma Social History Social History Smoking status: Former smoker Second hand tobacco smoke exposure: No Alcohol intake: former Substance use: former Gender identity (if verbalized by the patient): Female Comments At the time of my signature, I reviewed and agree with the nursing past medical, surgical, social, and family history. There is no relevant family history pertinent to the patient complaint. Exam Narrative: General: Well-developed, obese, in no apparent distress Head: Normocephalic, atraumatic. Cardio: Regular rate and rhythm, s1 and s2 normal, no murmur appreciated. Resp: Clear to auscultation bilaterally, no rhonchi, rales, wheezing or rubs. Musculoskeletal: No deformity, tender to palpation over the left lower posterior hip, grossly normal range of motion, patellar reflexes 2+ bilaterally, bilateral lower muscle strength strong and equal, peripheral pulse strong, no edema, no cyanosis, negative foot drop, normal gait and station Course Course Emergency Course: Portions of this record may have been created with voice recognition software. Level of Care: Express Care Visit Vital Signs Vital signs: Vital Signs Temperature 36.9 C 0
[2022-05-26 12:46] VITALS: BP 130/86; PULSE 64; RESP 16; TEMP 36.9; O2SAT 98
[2022-05-26] MEDS: KETOROLAC (*BKC) 60 MG/2 ML VIAL IM (13:01)
== END 2022-05-26 13:32 | disposition home or self-care (01) ==
PROVIDERS: Emergency Provider Nurse Practitioner Family; PCP Physician Assistant
DX: M54.16 Radiculopathy, lumbar region (principal); M54.31 Sciatica, right side; F41.9 Anxiety disorder, unspecified; F32.A Depression, unspecified; Z87.891 Personal history of nicotine dependence
CPT/HCPCS: 81003; 96372; 99213; G0463; J1885

== ENCOUNTER 2022-06-10 18:52 | Emergency (ER) | payer OTHER, SELFPAY ==
--- NOTE | ~2022-06-10 | XR_ITS ---
EXAMINATION: XR chest 1V portable Exam Date/Time: 06/10/2022 19:30 CDT HISTORY: chest pain Comparison: 11/15/2020. RESULT: Lines, tubes, and devices: None. Lungs and pleura: Clear. Cardiomediastinal silhouette: Stable. Other: No acute osseous or upper abdominal finding. IMPRESSION: No acute cardiopulmonary process. Reviewed, dictated and finalized at location K.
[2022-06-10 19:09] VITALS: BP 133/80; PULSE 72; RESP 16; TEMP 36.8; O2SAT 99
[2022-06-10 19:17] VITALS: BP 137/91; PULSE 71; RESP 19; O2SAT 99
--- NOTE | 2022-06-10 19:25 | ECG_ITS ---
Measurements Intervals [place] Rate: 63 P: 52 [place]: 154 QRS: 44 QRSD: 86 T: 54 QT: 405 QTc: 418 Interpretive Statements SINUS RHYTHM Electronically Signed On 06-11-2022 11:23:45 CDT by Jasper Carrion M.D.
[2022-06-10 19:32] VITALS: BP 129/80; PULSE 61; RESP 17; O2SAT 98
[2022-06-10] MEDS: IBUPROFEN 400 MG TABLET 800 MG PO (19:35)
[2022-06-10 19:46] LABS: Basophils Absolute Auto 0.03 K/mm3 (0.00-0.10); Basophils Percent Auto 0.4 % (0.0-1.0); Eosinophils Absolute Auto 0.15 K/mm3 (0.02-0.50); Eosinophils Percent Auto 2.1 % (1.0-6.0); Hematocrit 38.6 % (35.0-49.0); Hemoglobin 12.9 g/dL (12.0-15.0); Immature Granulocyte Absolute 0.01 K/mm3 (0.00-0.00); Immature Granulocyte Percent A 0.1 % (0.0-0.0); Lymphocytes Absolute Auto 1.94 K/mm3 (1.10-4.50); Lymphocytes Percent Auto 27.4 % (18.0-42.0); Mean Corpuscular HGB Conc 33.4 g/dL (32.0-36.0); Mean Corpuscular Hemoglobin 30.7 pg (27.0-31.0); Mean Corpuscular Volume 91.9 fL (78.0-102.0); Mean Platelet Volume 8.4 fl (9.2-11.8); Monocytes Absolute Auto 0.42 K/mm3 (0.10-0.90); Monocytes Percent Auto 5.9 % (2.0-11.0); Neutrophils Absolute Auto 4.5 K/mm3 (1.7-7.2); Neutrophils Percent Auto 64.1 % (50.0-70.0); Platelet Count Result 253 K/mm3 (150-420); Red Cell Distribution Width 12.4 % (11.6-14.4); White Blood Count 7.1 K/mm3 (4.8-10.8)
--- NOTE | 2022-06-10 19:56 | PC.NURSE ---
pt placed on telemetry monitoring.
[2022-06-10 20:04] LABS: Alanine Aminotransferase 20 U/L (14-59); Alkaline Phosphatase 62 U/L (46-116); Anion Gap 10 mmol/L (8-16); Aspartate Amino Transferase 11 U/L (15-37); Bilirubin,Total 0.2 mg/dL (0.00-1.00); Blood Urea Nitrogen 15 mg/dL (7-18); Calcium 8.8 mg/dL (8.5-10.1); Carbon Dioxide 25 mmol/L (21-32); Chloride 105 mmol/L (98-108); Estimated CRCL calculation 58 ml/min; Estimated Glomerular Filt Rate 47; Glucose 89 mg/dL (70-99); Lipase 227 U/L (73-393); Osmolality Calculated 289 mOsm/kg (285-295); Sodium 140 mmol/L (136-145); Troponin I 5.7 ng/L (0.00-60.4)
--- NOTE | 2022-06-10 20:07 | ED.GENADULT ---
HPI - General Adult General Chief complaint: Chest Pain Stated complaint: chest pain, L arm pain and numbness History of Present Illness HPI narrative: Is a 41-year-old female presenting ED with a chief complaint chest pain. Patient says that pain started 2 days ago. It was intermittent 1st is constant. She said that it started while she was at work. describes as a stabbing substernal pain is nonradiating, 7/10 in intensity and constant, she has never experienced pain like this before. It is worse with movement. There are no alleviating factors. It is not associated with diaphoresis, anxiety, or vomiting. patient does state that it gets worse when she is work. Patient denies shortness of breath, lower extremity edema, recent trauma surgery or cancer or any history of blood clots. 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 Patient also has a separate complaint of left elbow pain. It has been increasingly more painful over the last 2 months. There was no inciting event. There is no erythema or swelling. There is no trauma. Related Data Home Medications Medication Instructions Recorded Confirmed sertraline 50 mg tablet 75 mg PO DAILY 03/30/20 06/10/22 Allergies Allergy/AdvReac Type Severity Reaction Status Date / Time amoxicillin Allergy Severe Anaphylaxis Verified 06/10/22 19:05 cinnamon Allergy Severe Anaphylaxis Verified 06/10/22 19:05 clavulanic acid Allergy Severe Anaphylaxis Verified 06/10/22 19:05 morphine Allergy Severe Anaphylaxis Verified 06/10/22 19:05 Penicillins Allergy Severe Anaphylaxis Verified 06/10/22 19:05 potassium Allergy Intermediate Hives Verified 06/10/22 19:05 codeine Allergy Mild RASH Verified 06/10/22 19:05 latex Allergy Mild Rash Verified 06/10/22 19:05 omeprazole Allergy Mild Vomiting Verified 06/10/22 19:05 propoxyphene Allergy Mild Hives Verified 06/10/22 19:05 zinc chloride Allergy Mild Unknown Verified 06/10/22 19:05 pantoprazole [From Protonix] Allergy Hives Verified 06/10/22 19:05 shrimp Allergy Anaphylaxis Verified 06/10/22 19:05 Review of Systems Constitutional: Constitutional: Denies fever(s) Eyes: Eyes: Denies change in vision ENT: Denies dysphagia Cardiovascular: Cardiovascular: Reports chest pain Respiratory: Respiratory: Denies chest congestion Gastrointestinal: Gastrointestinal: Reports abdominal pain Genitourinary: Genitourinary: Denies abnormal vaginal bleeding Musculoskeletal: Musculoskeletal: Denies back pain Integumentary/Breasts: Skin/Breast: Denies breast pain Neurologic: Denies confusion Psychiatric: Psychiatric: Denies anxiety Endocrine: Endocrine: Denies excessive sweating Hematologic/Lymphatic: Hematologic/Lymphatic: Denies easy bleeding Allergic/Immunologic: Allergic/Immunologic: Denies lip swelling PMFSH Past Medical History Medical History Anxiety Conjunctivitis Gastritis History of depression History of migraine Surgical History Surgical History History of endometrial ablation Hx of tonsillectomy Family History Family History Grandparent Diabetes mellitus Father Lymphoma Social History Social History Smoking status: Former smoker Second hand tobacco smoke exposure: No Alcohol intake: former Substance use: former Gender identity (if verbalized by the patient): Female Exam Const: General: healthy appearing, no acute distress and alert Nutritional Appearance: well nourished Orientation/consciousness: patient oriented x3 HENMT: Head: normal to inspection Eyes: Conjunctivae: conjunctivae normal Neck: Neck: normal visual inspection Chest: Chest palpation & inspection: normal inspection of the chest and no tenderne
[2022-06-10 20:43] VITALS: BP 139/85; PULSE 59; RESP 17; TEMP 36.7; O2SAT 98
== END 2022-06-10 20:47 | disposition home or self-care (01) ==
PROVIDERS: Emergency Provider Emergency Medicine; PCP Physician Assistant
DX: R07.89 Other chest pain (principal)
CPT/HCPCS: 36415; 71045; 80053; 83690; 84484; 85025; 93005; 99284; A9270

== ENCOUNTER 2022-07-02 23:52 | Emergency (ER) | payer OTHER, SELFPAY ==
--- NOTE | 2022-07-03 00:06 | ED.HA ---
HPI - Headache General Chief Complaint: Headache Stated Complaint: head ache Source: patient Mode of arrival: ambulatory Limitations: no limitations History of Present Illness HPI Narrative: 41-year-old female with a history of anxiety, migraine presents to the ER with a 3 day history of -- headache- headache is bilateral. Has been present for the past 3 days. No nausea/vomiting. No photophobia /phonophobia. -- sinus congestion/ rhinorrhea-- clear discharge MD elicited complaint: headache Pertinent past history: migraines Onset (ago): day(s) ( Started 3 days ago) Onset description: gradually Location: diffuse Severity: moderate Quality & Timing: aching Exacerbating factors: none Relieving factors: nothing Context: occurred at rest Treatments prior to arrival: none Related Data Home Medications Medication Instructions Recorded Confirmed sertraline 50 mg tablet 75 mg PO DAILY 03/30/20 07/03/22 sucralfate 1 gram tablet 1 g PO QID 07/03/22 07/03/22 Allergies Allergy/AdvReac Type Severity Reaction Status Date / Time amoxicillin Allergy Severe Anaphylaxis Verified 07/03/22 00:08 cinnamon Allergy Severe Anaphylaxis Verified 07/03/22 00:08 clavulanic acid Allergy Severe Anaphylaxis Verified 07/03/22 00:08 morphine Allergy Severe Anaphylaxis Verified 07/03/22 00:08 Penicillins Allergy Severe Anaphylaxis Verified 07/03/22 00:08 potassium Allergy Intermediate Hives Verified 07/03/22 00:08 codeine Allergy Mild RASH Verified 07/03/22 00:08 latex Allergy Mild Rash Verified 07/03/22 00:08 omeprazole Allergy Mild Vomiting Verified 07/03/22 00:08 propoxyphene Allergy Mild Hives Verified 07/03/22 00:08 zinc chloride Allergy Mild Unknown Verified 07/03/22 00:08 pantoprazole [From Protonix] Allergy Hives Verified 07/03/22 00:08 shrimp Allergy Anaphylaxis Verified 07/03/22 00:08 Review of Systems Review of Systems: All systems reviewed & are unremarkable except as noted in HPI and below Constitutional: Constitutional: Reports as per HPI and Reports no additional constitutional complaints Eyes: Eyes: Reports as per HPI and Reports no additional eye complaints ENT: Reports system reviewed and no additional complaints, except as documented, Reports as per HPI and Reports nasal congestion Cardiovascular: Cardiovascular: Reports as per HPI and Reports no additional cardiovascular complaints Respiratory: Respiratory: Reports as per HPI and Reports no additional respiratory complaints Gastrointestinal: Gastrointestinal: Reports as per HPI and Reports no additional gastrointestinal complaints Genitourinary: Genitourinary: Reports no additional female genitourinary complaints and Reports as per HPI Musculoskeletal: Musculoskeletal: Reports no additional musculoskeletal complaints and Reports as per HPI Integumentary/Breasts: Skin/Breast: Reports system reviewed and no additional complaints, except as docu and Reports as per HPI Neurologic: Reports system reviewed and no additional complaints, except as documented and Reports as per HPI Psychiatric: Psychiatric: Reports no additional psychiatric complaints and Reports as per HPI Endocrine: Endocrine: Reports no additional endocrine complaints and Reports as per HPI Hematologic/Lymphatic: Hematologic/Lymphatic: Reports no additional hematologic/lymphatic complaints and Reports as per HPI Allergic/Immunologic: Allergic/Immunologic: Reports no additional allergic/immunologic complaints and Reports as per HPI PMFSH Past Medical History Medical History Anxiety Conjunctivitis Gastritis History of depression History of migraine Surgical History Surgical History History of endometrial ablation Hx of tonsillectomy Family History Family History Grandparent Diabetes mellitus Father Lymphoma Social H
[2022-07-03 00:10] VITALS: BP 134/74; PULSE 62; RESP 16; TEMP 36.1; O2SAT 98
[2022-07-03] MEDS: KETOROLAC 30 MG/ML VIAL (*BKC) IM (00:19)
[2022-07-03 00:50] VITALS: BP 140/83; PULSE 56; RESP 17; TEMP 36.1; O2SAT 98
== END 2022-07-03 00:51 | disposition home or self-care (01) ==
PROVIDERS: Emergency Provider Internal Medicine Critical Care Medicine; PCP Physician Assistant
DX: J30.9 Allergic rhinitis, unspecified (principal); G44.209 Tension-type headache, unspecified, not intractable
CPT/HCPCS: 96372; 99283; J1885

== ENCOUNTER 2022-07-18 09:16 | Emergency (ER) | payer OTHER, SELFPAY ==
[2022-07-18 09:22] VITALS: BP 126/75; PULSE 71; RESP 16; TEMP 36.6; O2SAT 100
--- NOTE | 2022-07-18 09:25 | ED.HA ---
HPI - Headache General Chief Complaint: Headache Stated Complaint: Mason headache Time Seen by Provider: 07/18/22 09:30 Source: patient, RN notes reviewed and old records reviewed Mode of arrival: ambulatory Limitations: no limitations History of Present Illness HPI Narrative: 41-year-old female who presents to [facility] care with 1.5 weeks of migraine headache pain which is frontal area mainly over her right eye area associated with nausea and photophobia. Patient has history of migraines and reports that she usually responds well to Toradol injections when headache is bad. Patient states that she has been taking Excedrin and also Some Zofran with no resolution of headache. Patient reports that headache started the day after she mowed grass, started gradually with gain of intensity. Patient states her PCP is suppose to be getting her into a neurologist for evaluation. MD elicited complaint: migraine (associated with nausea and photophobia) Onset (ago): week(s) (1.5 weeks ago) Location: right and frontal Pain scale (0-10): 10 Treatments prior to arrival: other (Excedrin and some zofran) Related Data Home Medications Medication Instructions Recorded Confirmed sertraline 50 mg tablet 75 mg PO DAILY 03/30/20 07/18/22 sucralfate 1 gram tablet 1 g PO QID 07/03/22 07/18/22 Allergies Allergy/AdvReac Type Severity Reaction Status Date / Time amoxicillin Allergy Severe Anaphylaxis Verified 07/18/22 09:31 cinnamon Allergy Severe Anaphylaxis Verified 07/18/22 09:31 clavulanic acid Allergy Severe Anaphylaxis Verified 07/18/22 09:31 morphine Allergy Severe Anaphylaxis Verified 07/18/22 09:31 Penicillins Allergy Severe Anaphylaxis Verified 07/18/22 09:31 potassium Allergy Intermediate Hives Verified 07/18/22 09:31 codeine Allergy Mild RASH Verified 07/18/22 09:31 latex Allergy Mild Rash Verified 07/18/22 09:31 omeprazole Allergy Mild Vomiting Verified 07/18/22 09:31 propoxyphene Allergy Mild Hives Verified 07/18/22 09:31 zinc chloride Allergy Mild Unknown Verified 07/18/22 09:31 pantoprazole [From Protonix] Allergy Hives Verified 07/18/22 09:31 shrimp Allergy Anaphylaxis Verified 07/18/22 09:31 Review of Systems Review of Systems: CONSTITUTIONAL: Denies fever, chills, or sweats. EYES: Denies visual changes, redness, or discharge.photophobia stated ENT: Denies rhinorrhea, congestion, sore throat, or otalgia. CARDIOVASCULAR: Denies chest pain, palpitations, or edema. RESPIRATORY: Denies cough or dyspnea. GASTROINTESTINAL: Denies abdominal pain, positive for intermittent nausea, no vomiting, or diarrhea. GENITOURINARY: Denies dysuria or hematuria. SKIN: Denies rash or itching. MUSCULOSKELETAL: Denies back pain, joint pain, or myalgia. NEUROLOGIC: Positive for headache,no numbness, or weakness. PSYCHIATRIC: Positive for history of anxiety or depression. PMFSH Past Medical History Medical History Anxiety Conjunctivitis Gastritis History of depression History of migraine Surgical History Surgical History History of endometrial ablation Hx of tonsillectomy Family History Family History Grandparent Diabetes mellitus Father Lymphoma Social History Social History Smoking status: Former smoker Second hand tobacco smoke exposure: No Alcohol intake: former Substance use: former Gender identity (if verbalized by the patient): Female Comments At time of signature, agree with nursing past medical, surgical, social and family history. There is no relevant family history pertinent to the presenting complaint Exam Narrative: GENERAL: Well-appearing, well-nourished, and in no acute distress. HEAD: Normocephalic, atraumatic. EYES: PERRLA and EOMI. ENT: Nares clear, no rhinorrhea or epistaxis. M
[2022-07-18] MEDS: KETOROLAC (*BKC) 60 MG/2 ML VIAL IM (09:44)
== END 2022-07-18 10:10 | disposition home or self-care (01) ==
PROVIDERS: Emergency Provider Registered Nurse; PCP Physician Assistant
DX: G43.909 Migraine, unspecified, not intractable, without status migrainosus (principal)
CPT/HCPCS: 96372; 99213; A9270; G0463; J1885

== ENCOUNTER 2022-08-08 17:34 | Emergency (ER) | payer OTHER, SELFPAY ==
--- NOTE | ~2022-08-08 | XR_ITS ---
EXAMINATION: XR chest 2V DATE: 08/08/2022 18:05 INDICATION: Cough TECHNIQUE: PA and lateral views of the chest were obtained. COMPARISON: Chest radiograph dated 06/10/2022 FINDINGS: The lungs remain clear with no focal airspace opacities, pulmonary edema, pleural effusion or pneumot horax. The cardiomediastinal silhouette is normal. Slight S-shaped curvature of the thoracolumbar spi ne. IMPRESSION: 1. No acute cardiopulmonary disease. Reviewed, dictated and finalized at location A.
--- NOTE | ~2022-08-08 | XR_ITS ---
EXAMINATION: XR shoulder RT min 2V DATE: 08/08/2022 18:05 INDICATION: Right shoulder pain TECHNIQUE: AP internally and externally rotated, AP oblique externally rotated and axillary views of the right shoulder were obtained. COMPARISON: None FINDINGS: Normal alignment. No fracture. Glenohumeral joint is normal. Minimal acromioclavicular osteoarthriti s. Small bone island at the right humeral head. Soft tissues are unremarkable. IMPRESSION: Minimal right acromioclavicular osteoarthritis. Reviewed, dictated and finalized at location A.
--- NOTE | 2022-08-08 17:55 | ED.EXTPRO ---
HPI - Extremity Problem General Chief complaint: Extremity Problem,Nontraumatic Stated complaint: WEAKNESS/TIRED/R SHOULDER PAIN Time Seen by Provider: 08/08/22 17:45 Source: patient, RN notes reviewed and old records reviewed Mode of arrival: ambulatory Limitations: no limitations History of Present Illness HPI Narrative: 42-year-old female presents to the [facility] with complaints of right shoulder pain for the last 3 days, denies any injury.. States that she has had sinus issues which have resolved after taking leftover Keflex. Denies fevers. Reports a cough that has been intermittent for 3 days. Onset (ago): day(s) (3) Related Data Home Medications Medication Instructions Recorded Confirmed sertraline 50 mg tablet 75 mg PO DAILY 03/30/20 08/08/22 sucralfate 1 gram tablet 1 g PO QID 07/03/22 07/18/22 Allergies Allergy/AdvReac Type Severity Reaction Status Date / Time amoxicillin Allergy Severe Anaphylaxis Verified 08/08/22 17:46 cinnamon Allergy Severe Anaphylaxis Verified 08/08/22 17:46 clavulanic acid Allergy Severe Anaphylaxis Verified 08/08/22 17:46 morphine Allergy Severe Anaphylaxis Verified 08/08/22 17:46 Penicillins Allergy Severe Anaphylaxis Verified 08/08/22 17:46 potassium Allergy Intermediate Hives Verified 08/08/22 17:46 codeine Allergy Mild RASH Verified 08/08/22 17:46 latex Allergy Mild Rash Verified 08/08/22 17:46 omeprazole Allergy Mild Vomiting Verified 08/08/22 17:46 propoxyphene Allergy Mild Hives Verified 08/08/22 17:46 zinc chloride Allergy Mild Unknown Verified 07/18/22 09:31 pantoprazole [From Protonix] Allergy Hives Verified 07/18/22 09:31 shrimp Allergy Anaphylaxis Verified 07/18/22 09:31 Review of Systems Review of Systems: All systems reviewed & are unremarkable except as noted in HPI and below Constitutional: Constitutional: Reports no additional constitutional complaints, Denies chills and Denies fever(s) Eyes: Eyes: Reports no additional eye complaints ENT: Reports system reviewed and no additional complaints, except as documented Cardiovascular: Cardiovascular: Reports no additional cardiovascular complaints Respiratory: Respiratory: Reports as per HPI, Denies chest congestion, Reports cough, Denies dyspnea and Denies wheezing Gastrointestinal: Gastrointestinal: Reports no additional gastrointestinal complaints Musculoskeletal: Musculoskeletal: Reports as per HPI, Reports arthralgias (Right shoulder), Denies joint swelling and Denies muscle cramps Integumentary/Breasts: Skin/Breast: Reports system reviewed and no additional complaints, except as docu Neurologic: Reports system reviewed and no additional complaints, except as documented Psychiatric: Psychiatric: Reports no additional psychiatric complaints Allergic/Immunologic: Allergic/Immunologic: Reports no additional allergic/immunologic complaints PMFSH Past Medical History Medical History Anxiety Conjunctivitis Gastritis History of depression History of migraine Surgical History Surgical History History of endometrial ablation Hx of tonsillectomy Family History Family History Grandparent Diabetes mellitus Father Lymphoma Social History Social History Smoking status: Former smoker Second hand tobacco smoke exposure: No Alcohol intake: former Substance use: former Gender identity (if verbalized by the patient): Female Comments At the time of my signature, I reviewed and agree with the nursing past medical, surgical, social, and family history. There is no relevant family history pertinent to the patient complaint. Exam Const: General: healthy appearing, no acute distress and alert Nutritional Appearance: well nourished Orientation/consciousness: patient oriented
== END 2022-08-08 18:30 | disposition home or self-care (01) ==
PROVIDERS: Emergency Provider Nurse Practitioner; PCP Physician Assistant
DX: M19.011 Primary osteoarthritis, right shoulder (principal); R05.9 Cough, unspecified; Z87.891 Personal history of nicotine dependence; F41.9 Anxiety disorder, unspecified; F32.A Depression, unspecified
CPT/HCPCS: 71046; 73030; 99214; G0463

== ENCOUNTER 2022-09-12 19:07 | Emergency (ER) | payer OTHER, SELFPAY ==
[2022-09-12 19:19] VITALS: BP 146/87; PULSE 56; RESP 18; TEMP 36.8; O2SAT 100
--- NOTE | 2022-09-12 19:41 | ED.URI ---
HPI - URI/Sore Throat General Chief Complaint: Upper Respiratory Infection Stated Complaint: Headache/Vomiting Time Seen by Provider: 09/12/22 19:42 Source: patient and RN notes reviewed Mode of arrival: ambulatory Limitations: no limitations History of Present Illness HPI Narrative: 42-year-old female presents with concern for 2 week history of headache. She also reports sinus pain, head congestion, postnasal drainage, brain nasal drainage. Reports headache is causing her nausea. Reports she has an appointment with Neurology in November to address her migraines. She denies any thunderclap headache, fever, coryza chills sweats MD elicited complaint: nasal congestion and other (Headache) Related Data Home Medications Medication Instructions Recorded Confirmed sertraline 50 mg tablet 75 mg PO DAILY 03/30/20 09/12/22 Allergies Allergy/AdvReac Type Severity Reaction Status Date / Time amoxicillin Allergy Severe Anaphylaxis Verified 09/12/22 19:21 cinnamon Allergy Severe Anaphylaxis Verified 09/12/22 19:21 clavulanic acid Allergy Severe Anaphylaxis Verified 09/12/22 19:21 morphine Allergy Severe Anaphylaxis Verified 09/12/22 19:21 Penicillins Allergy Severe Anaphylaxis Verified 09/12/22 19:21 potassium Allergy Intermediate Hives Verified 09/12/22 19:21 codeine Allergy Mild RASH Verified 09/12/22 19:21 latex Allergy Mild Rash Verified 09/12/22 19:21 omeprazole Allergy Mild Vomiting Verified 09/12/22 19:21 propoxyphene Allergy Mild Hives Verified 09/12/22 19:21 zinc chloride Allergy Mild Unknown Verified 09/12/22 19:21 pantoprazole [From Protonix] Allergy Hives Verified 09/12/22 19:21 shrimp Allergy Anaphylaxis Verified 09/12/22 19:21 Review of Systems Review of Systems: CONSTITUTIONAL: Denies malaise, chills, sweats, or fever. EYES: Denies visual changes, redness, or discharge. ENT: Reports rhinorrhea, congestion, sinus pain. Denies otalgia and sore throat. CARDIOVASCULAR: Denies chest pain, palpitations, or edema. RESPIRATORY: Denies cough. Denies dyspnea. GASTROINTESTINAL: Denies abdominal pain, vomiting, diarrhea he reports nausea SKIN: Denies rash or itching. MUSCULOSKELETAL: Denies myalgia. NEUROLOGIC: Reports headache. All systems reviewed & are unremarkable except as noted in HPI and below PMFSH Past Medical History Medical History Anxiety Conjunctivitis Gastritis History of depression History of migraine Surgical History Surgical History History of endometrial ablation Hx of tonsillectomy Family History Family History Grandparent Diabetes mellitus Father Lymphoma Social History Social History Smoking status: Former smoker Second hand tobacco smoke exposure: No Alcohol intake: former Substance use: former Gender identity (if verbalized by the patient): Female Comments At time of signature, agree with nursing past medical, surgical, social and family history. There is no relevant family history pertinent to the presenting complaint Exam Narrative: GENERAL: Well-appearing, well-nourished, and in no acute distress. HEAD: Normocephalic EYES: PERRLA, conjunctivae clear ENT: Nares clear, turbinates edematous and erythematous, clear discharge. Mucous membranes moist. TM pearly davenport with dull light reflex bilaterally; no tragal tenderness. Oropharynx not erythematous without lesions. Tonsils not enlarged and without exudate, no drooling, no hoarseness, no trismus, uvula midline. NECK: Supple. No lymphadenopathy CHEST: Clear to auscultation, breath sounds equal. No wheezing, rhonchi, rales, or stridor. No respiratory distress, speaks in full sentences. HEART: Regular rate and rhythm. No murmur heard. SKIN: Warm, dry, no rash. NEURO: Alert and oriented x3. PSYCH: Nor
[2022-09-12] MEDS: KETOROLAC (*BKC) 60 MG/2 ML VIAL IM (19:46)
== END 2022-09-12 20:05 | disposition home or self-care (01) ==
PROVIDERS: Emergency Provider Nurse Practitioner; PCP Physician Assistant
DX: R51.9 Headache, unspecified (principal); J01.90 Acute sinusitis, unspecified; Z87.891 Personal history of nicotine dependence; F41.9 Anxiety disorder, unspecified; F32.A Depression, unspecified
CPT/HCPCS: 96372; 99213; G0463; J1885

== ENCOUNTER 2022-09-16 11:26 | Emergency (ER) | payer OTHER, SELFPAY ==
--- NOTE | ~2022-09-16 | CT_ITS ---
EXAMINATION: CT brain & sinus wo con DATE: 09/16/2022 12:21 INDICATION: Headache. Recurrent sinusitis. TECHNIQUE: Computed tomography (CT) of the head was performed without intravenous contrast. The mA wa s adjusted according to patient size. Iterative reconstruction technique was employed. The dose-lengt h product was 681.00 mGy-cm. COMPARISON: Head CT 07/21/2019 FINDINGS: CT HEAD: There is no intracranial hemorrhage, acute infarction, or abnormal intracranial mass lesion. The ventricles are normal in size. The paranasal sinuses are clear. The orbits are normal. The masto id air cells are normal. CT SINUSES: The frontal , ethmoid, and sphenoid sinuses are clear. There is minimal mucosal thickenin g inferior maxillary sinuses. The ostiomeatal units are patent. There is a right-sided Jesenia cell. T here is rightward deviation of the nasal septum. IMPRESSION: 1. Normal brain. 2. Rightward deviation of the nasal septum. Reviewed, dictated and finalized at location A. ING MACHINE OPERATOR
[2022-09-16 11:37] VITALS: BP 150/106; PULSE 57; RESP 16; TEMP 36.6; O2SAT 100
--- NOTE | 2022-09-16 11:51 | ED.URI ---
HPI - URI/Sore Throat General Chief Complaint: Upper Respiratory Infection Stated Complaint: sinus infection/pressure in head /body aches Time Seen by Provider: 09/16/22 11:50 Source: patient History of Present Illness HPI Narrative: 42-year-old female with a history of anxiety /depression, migraine headaches, Endometrial ablation developed sinus congestion 1 month ago. She was placed on Keflex without improvement. Subsequently she was placed on doxycycline. After she did not have any improvement she went to urgent care where she was placed on doxycycline and prednisone. The patient presents to the ER with -- headache extending from the sinuses into the forehead. This is different from her migraine headache. The headache is bilateral and is present on a daily basis. It gets worse as the day goes by. Complains of nausea and vomiting. She has photophobia. MD elicited complaint: nasal congestion and sinus pain Onset (ago): day(s) ( for the past 10 days.) Consistency: constant Severity: moderate Able to tolerate fluids by mouth: Yes Exacerbating factors: nothing Relieving factors: nothing Associated symptoms: denies other symptoms Treatments prior to arrival: other ( Doxycycline and steroids) Related Data Home Medications Medication Instructions Recorded Confirmed sertraline 50 mg tablet 75 mg PO DAILY 03/30/20 09/16/22 Allergies Allergy/AdvReac Type Severity Reaction Status Date / Time amoxicillin Allergy Severe Anaphylaxis Verified 09/16/22 11:36 cinnamon Allergy Severe Anaphylaxis Verified 09/16/22 11:36 clavulanic acid Allergy Severe Anaphylaxis Verified 09/16/22 11:36 morphine Allergy Severe Anaphylaxis Verified 09/16/22 11:36 Penicillins Allergy Severe Anaphylaxis Verified 09/16/22 11:36 potassium Allergy Intermediate Hives Verified 09/16/22 11:36 codeine Allergy Mild RASH Verified 09/16/22 11:36 latex Allergy Mild Rash Verified 09/16/22 11:36 omeprazole Allergy Mild Vomiting Verified 09/16/22 11:36 propoxyphene Allergy Mild Hives Verified 09/16/22 11:36 zinc chloride Allergy Mild Unknown Verified 09/16/22 11:36 pantoprazole [From Protonix] Allergy Hives Verified 09/16/22 11:36 shrimp Allergy Anaphylaxis Verified 09/16/22 11:36 Review of Systems Review of Systems: All systems reviewed & are unremarkable except as noted in HPI and below Constitutional: Constitutional: Reports as per HPI and Reports no additional constitutional complaints Eyes: Eyes: Reports as per HPI and Reports no additional eye complaints ENT: Reports system reviewed and no additional complaints, except as documented, Reports as per HPI and Reports nasal congestion Cardiovascular: Cardiovascular: Reports as per HPI and Reports no additional cardiovascular complaints Respiratory: Respiratory: Reports as per HPI and Reports no additional respiratory complaints Gastrointestinal: Gastrointestinal: Reports as per HPI and Reports no additional gastrointestinal complaints Genitourinary: Genitourinary: Reports no additional female genitourinary complaints and Reports as per HPI Comments: status post uterine ablation Musculoskeletal: Musculoskeletal: Reports no additional musculoskeletal complaints and Reports as per HPI Integumentary/Breasts: Skin/Breast: Reports system reviewed and no additional complaints, except as docu and Reports as per HPI Neurologic: Reports system reviewed and no additional complaints, except as documented, Reports as per HPI and Reports headache(s) Psychiatric: Psychiatric: Reports no additional psychiatric complaints and Reports as per HPI Endocrine: Endocrine: Reports no additional endocrine complaints and Reports as per HPI Hematologic/Lymphatic: Hematologic/Lymphatic: Reports no additional hematologic/lymphatic complaints and Reports as per HPI Allergic/Immunologic: Allergic/Immunologic: Reports no additional allergic/immunologic complaints and Reports as per HPI PMFSH Past Medical History Medical History
[2022-09-16] MEDS: KETOROLAC 30 MG/ML VIAL (*BKC) IM (13:27)
[2022-09-16 13:47] VITALS: BP 142/98; PULSE 62; RESP 16; TEMP 36.6; O2SAT 100
== END 2022-09-16 13:48 | disposition home or self-care (01) ==
PROVIDERS: Emergency Provider Internal Medicine Critical Care Medicine; PCP Physician Assistant
DX: G44.209 Tension-type headache, unspecified, not intractable (principal)
CPT/HCPCS: 70450; 70486; 96372; 99284; J1885

== ENCOUNTER → 2022-09-18 20:11 | Emergency (ER) | payer OTHER, SELFPAY ==
--- NOTE | 2022-09-18 20:25 | PC.NURSE ---
left before triage assessment. states going to another hospital due to long wait.
--- NOTE | 2022-09-18 20:25 | PC.NURSE ---
left at 2019 due to long wait. pt not triaged
== END | disposition left against medical advice (07) ==
PROVIDERS: PCP Physician Assistant
DX: R20.2 Paresthesia of skin (principal)
CPT/HCPCS: 99199

== ENCOUNTER 2022-09-18 20:53 | Emergency (ER) | payer OTHER, SELFPAY ==
[2022-09-18 20:58] VITALS: BP 155/92; PULSE 65; RESP 18; TEMP 36.6; O2SAT 100
--- NOTE | 2022-09-18 21:29 | ED.GENADULT ---
HPI - General Adult General Chief complaint: Headache Stated complaint: lost vision in left eye, left arm, left side of fa Time Seen by Provider: 09/18/22 21:13 History of Present Illness HPI narrative: Yolanda is a 42F with a PMH of anxiety/depression and migraine headaches that presented to the ED with a headache. She has had a pounding left sided headache for 3.5 hours. It is accompanied by blurry vision in her right eye and her left arm feels like it is asleep. She is very nauseated and tired as well. No falls or trauma reported. Related Data Home Medications Medication Instructions Recorded Confirmed sertraline 50 mg tablet 50 mg PO DAILY 03/30/20 09/18/22 Allergies Allergy/AdvReac Type Severity Reaction Status Date / Time amoxicillin Allergy Severe Anaphylaxis Verified 09/18/22 21:12 cinnamon Allergy Severe Anaphylaxis Verified 09/18/22 21:12 clavulanic acid Allergy Severe Anaphylaxis Verified 09/18/22 21:12 morphine Allergy Severe Anaphylaxis Verified 09/18/22 21:12 Penicillins Allergy Severe Anaphylaxis Verified 09/18/22 21:12 potassium Allergy Intermediate Hives Verified 09/18/22 21:12 codeine Allergy Mild RASH Verified 09/18/22 21:12 latex Allergy Mild Rash Verified 09/18/22 21:12 omeprazole Allergy Mild Vomiting Verified 09/18/22 21:12 propoxyphene Allergy Mild Hives Verified 09/18/22 21:12 zinc chloride Allergy Mild Unknown Verified 09/18/22 21:12 pantoprazole [From Protonix] Allergy Hives Verified 09/18/22 21:12 shrimp Allergy Anaphylaxis Verified 09/18/22 21:12 Review of Systems Review of Systems: All systems reviewed & are unremarkable except as noted in HPI and below PMFSH Past Medical History Medical History Anxiety Conjunctivitis Gastritis History of depression History of migraine Surgical History Surgical History History of endometrial ablation Hx of tonsillectomy Family History Family History Grandparent Diabetes mellitus Father Lymphoma Social History Social History Smoking status: Former smoker Second hand tobacco smoke exposure: No Alcohol intake: former Substance use: former Gender identity (if verbalized by the patient): Female Exam Const: General: healthy appearing and no acute distress Nutritional Appearance: well nourished Orientation/consciousness: patient oriented x3 HENMT: Head: normal to inspection Ears: external ears normal Face/Nose/Sinus: Normal external nose present Face and sinus: normal facial exam Other: TM WNL bilaterally. Inflammed nasal turbinates Eyes: Conjunctivae: conjunctivae normal Pupils: Equal, round and reactive pupils present EOM: EOMs intact bilaterally Neck: Neck: normal visual inspection Chest: Chest palpation & inspection: normal inspection of the chest Resp: Effort & Inspection: normal respiratory effort Cardio: Rate: regular rate Rhythm: regular rhythm Skin: General skin exam: normal color Rashes: no rashes Neuro: General: patient oriented x3 Cranial nerves: Yes Nystagmus not present Speech: normal speech Other: A&Ox3, CNII-XII intact as tested Decreased vision in the left eye. She had normal speech and mentation and followed all commands. 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 She had no drift of the upper or lower extremities. No decreased sensation in the left arm Extrem: General: normal to inspection Psych: Mental Status: mental status grossly normal Affect: normal affect Course Course Emergency Course: Discussed how it is likely an atypical migraine. She declined the Compazine and Benadryl but accepted toradol and fluids. After toradol and fluids she felt a little better and felt safe to go home
[2022-09-18] MEDS: SODIUM CHLORIDE 0.9% IV 1,000 ML 999 ML IV CONT (21:43)
[2022-09-18] MEDS: KETOROLAC 30 MG/ML VIAL (*BKC) IV PUSH (21:45)
[2022-09-18 23:24] VITALS: BP 161/89; PULSE 56; RESP 16; TEMP 36.5; O2SAT 100
== END 2022-09-18 23:32 | disposition home or self-care (01) ==
PROVIDERS: Emergency Provider Family Medicine; PCP Physician Assistant
DX: G43.909 Migraine, unspecified, not intractable, without status migrainosus (principal)
CPT/HCPCS: 96361; 96374; 99284; J1885; J7030

== ENCOUNTER 2022-10-09 15:27 | Emergency (ER) | payer OTHER, SELFPAY ==
[2022-10-09 15:36] VITALS: BP 147/82; PULSE 81; RESP 16; TEMP 36.9; O2SAT 100
--- NOTE | 2022-10-09 15:39 | ED.HA ---
HPI - Headache General Chief Complaint: Headache Stated Complaint: HEADACHE/VOMITING Time Seen by Provider: 10/09/22 15:55 Mode of arrival: ambulatory Limitations: no limitations History of Present Illness HPI Narrative: 42-year-old female presents concern for 2 day history of headache with nausea and some vomiting. Reports she has taken Tylenol, Excedrin relief. She reports history of migraines. She has an appointment with a neurologist in November. Patient has been seen multiple times for headaches the past several months. Patient has been worked up in the emergency room for headaches. She reports she had exposure to influenza and has some runny nose and stuffy nose. MD elicited complaint: migraine Related Data Home Medications Medication Instructions Recorded Confirmed sertraline 50 mg tablet 50 mg PO DAILY 03/30/20 10/09/22 Allergies Allergy/AdvReac Type Severity Reaction Status Date / Time amoxicillin Allergy Severe Anaphylaxis Verified 10/09/22 15:43 cinnamon Allergy Severe Anaphylaxis Verified 10/09/22 15:43 clavulanic acid Allergy Severe Anaphylaxis Verified 10/09/22 15:43 morphine Allergy Severe Anaphylaxis Verified 10/09/22 15:43 Penicillins Allergy Severe Anaphylaxis Verified 10/09/22 15:43 potassium Allergy Intermediate Hives Verified 10/09/22 15:43 codeine Allergy Mild RASH Verified 10/09/22 15:43 latex Allergy Mild Rash Verified 10/09/22 15:43 omeprazole Allergy Mild Vomiting Verified 10/09/22 15:43 propoxyphene Allergy Mild Hives Verified 10/09/22 15:43 zinc chloride Allergy Mild Unknown Verified 10/09/22 15:43 pantoprazole [From Protonix] Allergy Hives Verified 10/09/22 15:43 shrimp Allergy Anaphylaxis Verified 10/09/22 15:43 Review of Systems Review of Systems: CONSTITUTIONAL: Denies malaise, chills, sweats, or fever. EYES: Denies acute visual changes ENT: Reports rhinorrhea, congestion. Denies sinus pain, otalgia or sore throat. CARDIOVASCULAR: Denies chest pain, palpitations, or edema. RESPIRATORY: Denies cough or dyspnea. GASTROINTESTINAL: Reports nausea, vomiting MUSCULOSKELETAL: Denies myalgia. NEUROLOGIC: Denies numbness, weakness. Reports headache. All systems reviewed & are unremarkable except as noted in HPI and below PMFSH Past Medical History Medical History Anxiety Conjunctivitis Gastritis History of depression History of migraine Surgical History Surgical History History of endometrial ablation Hx of tonsillectomy Family History Family History Grandparent Diabetes mellitus Father Lymphoma Social History Social History Smoking status: Former smoker Second hand tobacco smoke exposure: No Alcohol intake: former Substance use: former Gender identity (if verbalized by the patient): Female Comments At time of signature, agree with nursing past medical, surgical, social and family history. There is no relevant family history pertinent to the presenting complaint Exam Narrative: GENERAL: Nontoxic-appearing and in no acute distress. HEAD: Normocephalic, atraumatic. EYES: PERRLA, sclera clear, and EOMI. No nystagmus. ENT: Nares clear, clear discharge. Mucous membranes moist. TM pearly davenport with sharp light reflex bilaterally; no tragal tenderness. Oropharynx without erythema or lesions. Tonsils not enlarged and without exudate. NECK: Supple. No lymphadenopathy. No jugular venous distension, thyromegaly, or carotid bruits. Carotids were easily palpable bilaterally. CHEST: No respiratory distress. Clear to auscultation. No bony deformities, no asymmetry. Speaks in full sentences. HEART: Regular rate and rhythm. No murmur heard. Normal peripheral pulses. SKIN: Warm, dry, no visible rash. NEURO: Alert and oriented x3. No focal deficits
[2022-10-09] MEDS: KETOROLAC (*BKC) 60 MG/2 ML VIAL IM (16:16)
== END 2022-10-09 16:33 | disposition home or self-care (01) ==
PROVIDERS: Emergency Provider Nurse Practitioner; PCP Physician Assistant
DX: R51.9 Headache, unspecified (principal); Z87.891 Personal history of nicotine dependence; F41.9 Anxiety disorder, unspecified; F32.A Depression, unspecified
CPT/HCPCS: 87804; 96372; 99213; G0463; J1885

== ENCOUNTER 2022-10-12 06:42 | Outpatient (CLI) | payer OTHER, SELFPAY ==
--- NOTE | ~2022-10-12 | MR_ITS ---
EXAMINATION: MR brain/brain stem wo con DATE: 10/12/2022 08:14 INDICATION: New daily persistent headaches. TECHNIQUE: Magnetic resonance imaging (MRI) of the brain and brainstem was performed without intraven ous contrast. COMPARISON: Head CT 09/16/2022 FINDINGS: There are scattered areas of nonspecific increased T2-weighted signal intensity in the cere bral white matter. There is a punctate old microhemorrhage in left frontoparietal region. There is no acute infarction or abnormal intracranial mass lesion. The ventricles are normal in size. The orbits are normal. There is mild mucosal thickening in the paranasal sinuses. The mastoid air cells are nor mal. IMPRESSION: 1. Mild nonspecific cerebral white matter disease. The differential diagnosis includes premature body maker yuliet small vessel ischemic disease (especially if the patient has cardiovascular risk factors), demyel inating disease such as multiple sclerosis, drug abuse, vasculitis, or reactive astrocytosis (gliosis ) secondary to nonspecific etiology. Reviewed, dictated and finalized at location E. NSIC COMPUTER EXAMINER IMPRESSION: 1. Mild nonspecific cerebral white matter disease. The differential diagnosis i ncludes premature chronic small vessel ischemic disease (especially if the tonya ent has cardiovascular risk factors), demyelinating disease such as multiple sc lerosis, drug abuse, vasculitis, or reactive astrocytosis (gliosis) secondary t o nonspecific etiology.
== END 2022-10-12 06:43 | disposition home or self-care (01) ==
LOC: CHSIMG 06:43
PROVIDERS: PCP Physician Assistant; Visit Provider Physician Assistant
DX: G44.52 New daily persistent headache (NDPH) (principal)
CPT/HCPCS: 70551

== ENCOUNTER 2022-10-12 19:34 | Emergency (ER) | payer OTHER, SELFPAY ==
[2022-10-12 19:50] VITALS: BP 155/92; PULSE 67; RESP 20; TEMP 36.7; O2SAT 97
[2022-10-12] MEDS: SODIUM CHLORIDE 0.9% IV 1,000 ML 999 ML IV CONT (20:14)
[2022-10-12] MEDS: ONDANSETRON INJ 4 MG/2 ML VIAL IV PUSH (20:15)
[2022-10-12] MEDS: KETOROLAC 30 MG/ML VIAL (*BKC) IV PUSH (20:15)
--- NOTE | 2022-10-12 20:43 | ED.HA ---
HPI - Headache General Chief Complaint: Headache Stated Complaint: headache, nausea Time Seen by Provider: 10/12/22 19:55 Source: patient Mode of arrival: ambulatory Limitations: no limitations History of Present Illness HPI Narrative: this is a 42-year-old female that presents with headache which she describes as her typical migraine headache rates it about a 7/10 throbbing sensitive to light and sound with some nausea, has tried [id number] medications with minimal relief the patient had an MRI that was performed this afternoon and advised to follow with her primary for that evaluation and to keep her referral to neurology. Currently there is no chest pain or shortness of breath no fever chills no neck stiffness. MD elicited complaint: headache and migraine Onset description: gradually Location: right Severity: moderate Pain scale (0-10): 7 Quality & Timing: throbbing Context: occurred at rest Associated symptoms: nausea, photophobia and sensitivity to sound Related Data Home Medications Medication Instructions Recorded Confirmed sertraline 50 mg tablet 50 mg PO DAILY 03/30/20 10/12/22 Allergies Allergy/AdvReac Type Severity Reaction Status Date / Time amoxicillin Allergy Severe Anaphylaxis Verified 10/09/22 15:43 cinnamon Allergy Severe Anaphylaxis Verified 10/09/22 15:43 clavulanic acid Allergy Severe Anaphylaxis Verified 10/09/22 15:43 morphine Allergy Severe Anaphylaxis Verified 10/09/22 15:43 Penicillins Allergy Severe Anaphylaxis Verified 10/09/22 15:43 potassium Allergy Intermediate Hives Verified 10/09/22 15:43 codeine Allergy Mild RASH Verified 10/09/22 15:43 latex Allergy Mild Rash Verified 10/09/22 15:43 omeprazole Allergy Mild Vomiting Verified 10/09/22 15:43 propoxyphene Allergy Mild Hives Verified 10/09/22 15:43 zinc chloride Allergy Mild Unknown Verified 10/09/22 15:43 pantoprazole [From Protonix] Allergy Hives Verified 10/09/22 15:43 shrimp Allergy Anaphylaxis Verified 10/09/22 15:43 Review of Systems Review of Systems: All systems reviewed & are unremarkable except as noted in HPI and below PMFSH Past Medical History Medical History Anxiety Conjunctivitis Gastritis History of depression History of migraine Surgical History Surgical History History of endometrial ablation Hx of tonsillectomy Family History Family History Grandparent Diabetes mellitus Father Lymphoma Social History Social History Smoking status: Former smoker Second hand tobacco smoke exposure: No Alcohol intake: former Substance use: former Gender identity (if verbalized by the patient): Female Exam Const: General: healthy appearing Nutritional Appearance: well nourished Orientation/consciousness: patient oriented x3 Limitations: no limitations HENMT: Head: normal to inspection Ears: external ears normal Face/Nose/Sinus: Normal external nose present Eyes: Conjunctivae: conjunctivae normal Pupils: Equal, round and reactive pupils present EOM: EOMs intact bilaterally Neck: Neck: normal visual inspection Chest: Chest palpation & inspection: normal inspection of the chest Resp: Effort & Inspection: normal respiratory effort Auscultation: clear to auscultation bilaterally Cardio: Rate: regular rate Rhythm: regular rhythm GI: GI Palp: Yes Soft to palpation : General: Yes bladder normal to palpation Skin: General skin exam: normal color Rashes: no rashes Wounds: no wounds Neuro: General: patient oriented x3, moves all extremities, no meningeal signs, no focal motor deficits and CN's II-XI intact bilaterally Cranial nerves: Yes Nystagmus not present Speech: normal speech Gait exam (Neuro): Normal gait present Extrem: General: normal to inspection,
[2022-10-12 21:18] VITALS: BP 153/96; PULSE 65; RESP 18; TEMP 36.8; O2SAT 97
== END 2022-10-12 21:22 | disposition home or self-care (01) ==
PROVIDERS: Emergency Provider Emergency Medicine; PCP Physician Assistant
DX: G43.909 Migraine, unspecified, not intractable, without status migrainosus (principal)
CPT/HCPCS: 70551; 96361; 96374; 96375; 99284; J1885; J2405; J7030

== ENCOUNTER 2022-11-06 21:50 | Emergency (ER) | payer OTHER, SELFPAY ==
--- NOTE | ~2022-11-06 | XR_ITS ---
Portable chest x-ray Comparison: 08/08/2022 Clinical History: Chest pain Findings: Lungs are clear, without focal consolidation or pleural effusion. Cardiomediastinal silho uette is stable. Bones and soft tissues are unremarkable. Impression: Normal chest. Reviewed, dictated and finalized at [facility]. BI DEVELOPER Impression: Normal chest.
--- NOTE | 2022-11-06 21:55 | ECG_ITS ---
Measurements Intervals [place] Rate: 61 P: 49 MN: 150 QRS: 31 QRSD: 86 T: 54 QT: 416 QTc: 422 Interpretive Statements SINUS RHYTHM NORMAL ECG COMPARED TO ECG 06/10/2022 19:29:59 NO SIGNIFICANT CHANGES Electronically Signed On 11-08-2022 14:33:20 MEDICAL RECORDS CLERK by Bert Hanson M.D.
--- NOTE | 2022-11-06 21:59 | ED.GENADULT ---
HPI - General Adult General Chief complaint: Shortness of Breath/Dyspnea Stated complaint: chest pain, body aches, coughing, fever Time Seen by Provider: 11/06/22 21:55 History of Present Illness HPI narrative: Geovanni is a 42F with a PMH of gastritis, anxiety, depression and migraines that presented to the ED with dyspnea, chest pain with deep inspiration, aches, fatigue and headache for 1 week. She originally had some diarrhea but it resolved. She is nauseated but she has not vomited. Related Data Home Medications Medication Instructions Recorded Confirmed sertraline 50 mg tablet 50 mg PO DAILY 03/30/20 11/06/22 Allergies Allergy/AdvReac Type Severity Reaction Status Date / Time amoxicillin Allergy Severe Anaphylaxis Verified 11/06/22 22:05 cinnamon Allergy Severe Anaphylaxis Verified 11/06/22 22:05 clavulanic acid Allergy Severe Anaphylaxis Verified 11/06/22 22:05 morphine Allergy Severe Anaphylaxis Verified 11/06/22 22:05 Penicillins Allergy Severe Anaphylaxis Verified 11/06/22 22:05 potassium Allergy Intermediate Hives Verified 11/06/22 22:05 codeine Allergy Mild RASH Verified 11/06/22 22:05 latex Allergy Mild Rash Verified 11/06/22 22:05 omeprazole Allergy Mild Vomiting Verified 11/06/22 22:05 propoxyphene Allergy Mild Hives Verified 11/06/22 22:05 zinc chloride Allergy Mild Unknown Verified 10/09/22 15:43 pantoprazole [From Protonix] Allergy Hives Verified 10/09/22 15:43 shrimp Allergy Anaphylaxis Verified 10/09/22 15:43 Review of Systems Review of Systems: All systems reviewed & are unremarkable except as noted in HPI and below PMFSH Past Medical History Medical History Anxiety Conjunctivitis Gastritis History of depression History of migraine Surgical History Surgical History History of endometrial ablation Hx of tonsillectomy Family History Family History Grandparent Diabetes mellitus Father Lymphoma Social History Social History Smoking status: Former smoker Second hand tobacco smoke exposure: No Alcohol intake: former Substance use: former Gender identity (if verbalized by the patient): Female Exam Const: General: healthy appearing, no acute distress and alert Nutritional Appearance: well nourished Orientation/consciousness: patient oriented x3 HENMT: Head: normal to inspection Ears: external ears normal Eyes: Conjunctivae: conjunctivae normal Pupils: Equal, round and reactive pupils present EOM: EOMs intact bilaterally Neck: Neck: normal visual inspection Chest: Chest palpation & inspection: normal inspection of the chest Resp: Effort & Inspection: normal respiratory effort Auscultation: clear to auscultation bilaterally Cardio: Rate: regular rate Rhythm: regular rhythm Heart sounds: no murmurs GI: Inspection: non-distended GI Palp: Yes Soft to palpation and No Tenderness to palpation present (GI) Skin: General skin exam: normal color Rashes: no rashes Neuro: General: patient oriented x3 and moves all extremities Cranial nerves: Yes Nystagmus not present Speech: normal speech Extrem: General: normal to inspection Psych: Mental Status: mental status grossly normal Course Course Emergency Course: Ordered labs, CXR, and EKG EKG showed NSR with a rate of 61, normal axis and no ST elevation/depression. Ordered fluids and toradol. She declined meds for nausea. CBC showed normal white count and hemoglobin, normal coags, unremarkable chemistries, and a positive covid test CXR: negative per my interpretation, official radiology read to follow Vital Signs Vital signs: Vital Signs Temperature 98.4 F 11/06/22 22:02 Pulse Rate 67 11/06/22 22:02 Respiratory Rate 20 11/06/22 22:02 Blood Pressure 166/96 H
[2022-11-06 22:02] VITALS: BP 166/96; PULSE 67; RESP 20; TEMP 36.9; O2SAT 100
[2022-11-06 22:10] LABS: Basophils Absolute Auto 0.01 K/mm3 (0.00-0.10); Basophils Percent Auto 0.2 % (0.0-1.0); Eosinophils Absolute Auto 0.06 K/mm3 (0.02-0.50); Eosinophils Percent Auto 1.2 % (1.0-6.0); Hematocrit 38.2 % (35.0-49.0); Hemoglobin 13.1 g/dL (12.0-15.0); Immature Granulocyte Absolute 0.01 K/mm3 (0.00-0.00); Immature Granulocyte Percent A 0.2 % (0.0-0.0); Lymphocytes Absolute Auto 2.13 K/mm3 (1.10-4.50); Lymphocytes Percent Auto 42.5 % (18.0-42.0); Mean Corpuscular HGB Conc 34.3 g/dL (32.0-36.0); Mean Corpuscular Volume 87.6 fL (78.0-102.0); Mean Platelet Volume 8.4 fl (9.2-11.8); Monocytes Absolute Auto 0.26 K/mm3 (0.10-0.90); Monocytes Percent Auto 5.2 % (2.0-11.0); Neutrophils Absolute Auto 2.5 K/mm3 (1.7-7.2); Neutrophils Percent Auto 50.7 % (50.0-70.0); Platelet Count Result 193 K/mm3 (150-420); Red Blood Count 4.36 M/mm3 (4.20-5.40); Red Cell Distribution Width 11.9 % (11.6-14.4)
[2022-11-06 22:23] LABS: Prothrombin Time 11.4 Seconds (9.50-12.10)
[2022-11-06 22:32] LABS: Alanine Aminotransferase 17 U/L (14-59); Alkaline Phosphatase 57 U/L (46-116); Anion Gap 9 mmol/L (8-16); Aspartate Amino Transferase < 10 U/L (15-37); Bilirubin,Total 0.3 mg/dL (0.00-1.00); Blood Urea Nitrogen 11 mg/dL (7-18); Calcium 8.4 mg/dL (8.5-10.1); Carbon Dioxide 25 mmol/L (21-32); Chloride 103 mmol/L (98-108); Estimated Glomerular Filt Rate 56; Glucose 90 mg/dL (70-99); NT Pro B Type Natriuretic Pept 22 pg/mL (0-125); Osmolality Calculated 283 mOsm/kg (285-295); Potassium 3.7 mmol/L (3.5-5.1); Sodium 137 mmol/L (136-145); Total Protein 7.2 g/dL (6.4-8.2)
[2022-11-06 22:34] LABS: Troponin I < 4.0 ng/L (0.00-60.4)
[2022-11-06] MEDS: KETOROLAC 15 MG/ML VIAL (*BKC) IV PUSH (22:43)
[2022-11-06] MEDS: SODIUM CHLORIDE 0.9% IV 1,000 ML 999 ML IV CONT (22:43)
[2022-11-06 22:46] LABS: Influenza A QL RT-PCR Negative (Negative); Influenza B QL RT-PCR Negative (Negative); SARS-CoV-2 RNA PCR Positive (Negative)
[2022-11-06 22:50] LABS: RSV RNA, RT-PCR Negative (Negative)
[2022-11-06 23:07] VITALS: BP 154/66; PULSE 64; RESP 20; TEMP 36.7; O2SAT 95
== END 2022-11-06 23:29 | disposition home or self-care (01) ==
PROVIDERS: Emergency Provider Family Medicine; PCP Physician Assistant
DX: U07.1 COVID-19 (principal); F41.9 Anxiety disorder, unspecified; F32.A Depression, unspecified; Z87.891 Personal history of nicotine dependence
CPT/HCPCS: 36415; 71045; 80053; 83880; 84484; 85025; 85610; 87637; 93005; 96361; 96374; 99284; J1885; J7030

== ENCOUNTER 2022-11-08 14:02 | Emergency (ER) | payer OTHER, SELFPAY ==
[2022-11-08 14:18] VITALS: BP 149/83; PULSE 63; RESP 18; TEMP 37.2; O2SAT 100
--- NOTE | 2022-11-08 14:34 | ED.HA ---
HPI - Headache General Chief Complaint: Headache Stated Complaint: Headache Time Seen by Provider: 11/08/22 14:30 Source: patient Mode of arrival: ambulatory Limitations: no limitations History of Present Illness HPI Narrative: Yolanda is a 42-year-old female patient presenting to clinic today with complaints of chronic migraine to her frontal lobe, states that she has white matter disease that causes her headaches. She reports that her doctor put her on a new medication (Rizatriptan) but she developed an allergic reaction (hives) to this medication. She has multiple medication allergies listed. She reports that she has taken Toradol before without any reaction. She currently rates her pain an 8/10. She states she has photosensitivity and sensitivities to noise. She denies any nausea or vomiting. States she is feeling somewhat dizzy. Related Data Home Medications Medication Instructions Recorded Confirmed sertraline 50 mg tablet 50 mg PO DAILY 03/30/20 11/08/22 metoprolol succinate 50 mg 50 mg PO DAILY 11/08/22 11/08/22 tablet,extended release 24 hr Allergies Allergy/AdvReac Type Severity Reaction Status Date / Time amoxicillin Allergy Severe Anaphylaxis Verified 11/08/22 14:22 cinnamon Allergy Severe Anaphylaxis Verified 11/08/22 14:22 clavulanic acid Allergy Severe Anaphylaxis Verified 11/08/22 14:22 morphine Allergy Severe Anaphylaxis Verified 11/08/22 14:22 Penicillins Allergy Severe Anaphylaxis Verified 11/08/22 14:22 potassium Allergy Intermediate Hives Verified 11/08/22 14:22 codeine Allergy Mild RASH Verified 11/08/22 14:22 latex Allergy Mild Rash Verified 11/08/22 14:22 omeprazole Allergy Mild Vomiting Verified 11/08/22 14:22 propoxyphene Allergy Mild Hives Verified 11/08/22 14:22 zinc chloride Allergy Mild Unknown Verified 11/08/22 14:22 pantoprazole [From Protonix] Allergy Hives Verified 11/08/22 14:22 rizatriptan Allergy Hives Verified 11/08/22 14:22 shrimp Allergy Anaphylaxis Verified 11/08/22 14:22 sumatriptan [From Imitrex] Allergy Hives Verified 11/08/22 14:24 Review of Systems Review of Systems: Pertinent positives per HPI. Patient denies any fever, chills, rash, visual changes, dizziness, cough, runny nose, sore throat, shortness of breath, chest pain, palpitations, nausea, vomiting, diarrhea, constipation, abdominal pain, or any urinary issues. [facility] Past Medical History Medical History Anxiety Conjunctivitis Gastritis History of depression History of migraine Surgical History Surgical History History of endometrial ablation Hx of tonsillectomy Family History Family History Grandparent Diabetes mellitus Father Lymphoma Social History Social History Smoking status: Former smoker Second hand tobacco smoke exposure: No Alcohol intake: former Substance use: former Gender identity (if verbalized by the patient): Female Comments At the time of my signature, I reviewed and agree with the nursing past medical, surgical, social, and family history. There is no relevant family history pertinent to the patient complaint. Exam Narrative: General: Well-developed, well nourished, in no apparent distress Head: Normocephalic, atraumatic, redness of the skin to the frontal lobe Eyes: Pupils equally round and reactive to light bilaterally, EOM intact, sclera and conjunctive clear, no discharge, lids normal Ears: TMs intact and clear, ear canals clear, no drainage, grossly hearing normal. Nose: Nares patent, no discharge, no inflammation, no sinus tenderness. Mouth: Oropharynx without lesions or masses, good dentition, MMM. Neck: Supple, trachea midline, no enlargement of anterior or posterior cervical nodes, no thyro
[2022-11-08] MEDS: KETOROLAC (*BKC) 60 MG/2 ML VIAL IM (14:42)
== END 2022-11-08 15:10 | disposition home or self-care (01) ==
PROVIDERS: Emergency Provider Nurse Practitioner Family; PCP Physician Assistant
DX: G43.909 Migraine, unspecified, not intractable, without status migrainosus (principal); Z87.891 Personal history of nicotine dependence; F41.9 Anxiety disorder, unspecified; F32.A Depression, unspecified
CPT/HCPCS: 96372; 99213; G0463; J1885

== ENCOUNTER 2022-11-24 13:34 | Emergency (ER) | payer OTHER, SELFPAY ==
[2022-11-24 13:38] VITALS: BP 134/88; PULSE 68; RESP 20; TEMP 36.8; O2SAT 99
--- NOTE | 2022-11-24 15:20 | ED.HA ---
HPI - Headache General Chief Complaint: Headache Stated Complaint: migraine Time Seen by Provider: 11/24/22 15:20 Source: patient, RN notes reviewed and old records reviewed Mode of arrival: ambulatory Limitations: no limitations History of Present Illness HPI Narrative: 42-year-old female presents to [facility] with complaints of chronic migraine headaches with increased discomfort today. Patient states she has 2 days in last 2 months she has actually not had headache pain. Patient is schedule to see neurologist this month on the for her headache pain. Patient reports that she does have some intermittent nausea with her headaches no vomiting is photophobic today. Patient reports that she had prescription for Nurtec but can not afford to get filled. MD elicited complaint: migraine Pertinent past history: other (history of chronic headaches.) Location: frontal Pain scale (0-10): 8 Exacerbating factors: movement of head/neck and light Treatments prior to arrival: acetaminophen Related Data Allergies Allergy/AdvReac Type Severity Reaction Status Date / Time amoxicillin Allergy Severe Anaphylaxis Verified 11/24/22 13:52 cinnamon Allergy Severe Anaphylaxis Verified 11/24/22 13:52 clavulanic acid Allergy Severe Anaphylaxis Verified 11/24/22 13:52 morphine Allergy Severe Anaphylaxis Verified 11/24/22 13:52 Penicillins Allergy Severe Anaphylaxis Verified 11/24/22 13:52 potassium Allergy Intermediate Hives Verified 11/24/22 13:52 codeine Allergy Mild RASH Verified 11/24/22 13:52 latex Allergy Mild Rash Verified 11/24/22 13:52 omeprazole Allergy Mild Vomiting Verified 11/24/22 13:52 propoxyphene Allergy Mild Hives Verified 11/24/22 13:52 zinc chloride Allergy Mild Unknown Verified 11/24/22 13:52 pantoprazole [From Protonix] Allergy Hives Verified 11/24/22 13:52 rizatriptan Allergy Hives Verified 11/24/22 13:52 shrimp Allergy Anaphylaxis Verified 11/24/22 13:52 sumatriptan [From Imitrex] Allergy Hives Verified 11/24/22 13:52 Review of Systems Review of Systems: CONSTITUTIONAL: Denies fever, chills, or sweats. EYES: Denies visual changes, redness, or discharge.is photophobic with headache pain today ENT: Denies rhinorrhea, congestion, sore throat, or otalgia. CARDIOVASCULAR: Denies chest pain, palpitations, or edema. RESPIRATORY: Denies cough or dyspnea. GASTROINTESTINAL: Denies abdominal pain, nausea, vomiting, or diarrhea. GENITOURINARY: Denies dysuria or hematuria. SKIN: Denies rash or itching. MUSCULOSKELETAL: Denies back pain, joint pain, or myalgia. NEUROLOGIC: Report history of anxiety or depression. All systems reviewed & are unremarkable except as noted in HPI and below PMFSH Past Medical History Medical History Allergies Anxiety Conjunctivitis Cough COVID-19 Gastritis History of depression History of migraine Surgical History Surgical History History of endometrial ablation Hx of tonsillectomy Family History Family History Grandparent Diabetes mellitus Heart problem Cerebrovascular accident Father Lymphoma Alcoholism Cancer Sibling Hypertension Depression Mother Heart problem Hypertension Social History Social History Smoking status: Former smoker Second hand tobacco smoke exposure: No Alcohol intake: former Substance use: former Lack of Transportation: No Lack of Food: Sometimes True Current Housing: I Have Housing Concerned About Future Housing: No Difficulty Paying Gas/Electric Bills: No Difficulty Paying for Meds: No Currently Unemployed: YES Education: High School Diploma/GED Difficulty w/ Childcare or Family Care: No Gender identity (if verbalized by the patient): Female Comments At time of signature, agree with whitley
[2022-11-24] MEDS: KETOROLAC (*BKC) 60 MG/2 ML VIAL IM (15:34)
== END 2022-11-24 15:39 | disposition home or self-care (01) ==
PROVIDERS: Emergency Provider Registered Nurse; PCP Internal Medicine
DX: G43.909 Migraine, unspecified, not intractable, without status migrainosus (principal); Z87.891 Personal history of nicotine dependence; Z86.16 Personal history of COVID-19; F41.9 Anxiety disorder, unspecified; F32.A Depression, unspecified
CPT/HCPCS: 96372; 99213; G0463; J1885

== ENCOUNTER 2023-01-15 11:30 | Emergency (ER) | payer OTHER, SELFPAY ==
[2023-01-15 11:35] VITALS: BP 130/83; PULSE 66; RESP 20; TEMP 36.6; O2SAT 100
--- NOTE | 2023-01-15 11:49 | ED.URI ---
HPI - URI/Sore Throat General Chief Complaint: Upper Respiratory Infection Stated Complaint: Sinus Congestion Time Seen by Provider: 01/15/23 11:38 History of Present Illness HPI Narrative: Pt is a 42 y/o female, PMHx of migraine SIBLEY, presents to with 4 day hx of sinus congestion, sore throat and ear pressure. She is starting to cough. She had a low grade fever at symptom onset but not since that time. She has taken Zyrtec and Excedrin without relief. She denies chance of . She has no additional associated symptoms and denies additional modifying factors. Related Data Home Medications Medication Instructions Recorded Confirmed ubrogepant 100 mg tablet (Ubrelvy) 100 mg PO ONCE 01/10/23 01/15/23 metoprolol succinate 50 mg 50 mg PO DAILY 01/15/23 01/15/23 tablet,extended release 24 hr Allergies Allergy/AdvReac Type Severity Reaction Status Date / Time amoxicillin Allergy Severe Anaphylaxis Verified 01/15/23 11:45 cinnamon Allergy Severe Anaphylaxis Verified 01/15/23 11:45 clavulanic acid Allergy Severe Anaphylaxis Verified 01/15/23 11:45 morphine Allergy Severe Anaphylaxis Verified 01/15/23 11:45 Penicillins Allergy Severe Anaphylaxis Verified 01/15/23 11:45 potassium Allergy Intermediate Hives Verified 01/15/23 11:45 codeine Allergy Mild RASH Verified 01/15/23 11:45 latex Allergy Mild Rash Verified 01/15/23 11:45 omeprazole Allergy Mild Vomiting Verified 01/15/23 11:45 propoxyphene Allergy Mild Hives Verified 01/15/23 11:45 zinc chloride Allergy Mild Unknown Verified 01/15/23 11:45 pantoprazole [From Protonix] Allergy Hives Verified 01/15/23 11:45 rizatriptan Allergy Hives Verified 01/15/23 11:45 shrimp Allergy Anaphylaxis Verified 01/15/23 11:45 sumatriptan [From Imitrex] Allergy Hives Verified 01/15/23 11:45 Review of Systems Review of Systems: neg except as stated in HPI ENT: Comments: refer to HPI Respiratory: Comments: refer to HPI PMFSH Past Medical History Medical History Allergies Anxiety Conjunctivitis Cough COVID-19 Gastritis History of depression History of migraine Surgical History Surgical History History of endometrial ablation Hx of tonsillectomy Family History Family History Grandparent Diabetes mellitus Heart problem Cerebrovascular accident Father Lymphoma Alcoholism Cancer Sibling Hypertension Depression Mother Heart problem Hypertension Social History Social History Smoking status: Former smoker Second hand tobacco smoke exposure: No Alcohol intake: former Substance use: former Lack of Transportation: No Lack of Food: Sometimes True Current Housing: I Have Housing Concerned About Future Housing: No Difficulty Paying Gas/Electric Bills: No Difficulty Paying for Meds: No Currently Unemployed: YES Education: High School Diploma/GED Difficulty w/ Childcare or Family Care: No Living arrangements: with family Occupation/Education: occupation Gender identity (if verbalized by the patient): Female Exam Const: General: healthy appearing, no acute distress and alert HENMT: Head: normal to inspection Ears: TM abnormal (clear serous effusion noted. No erythema or bulging of the TM. EACs normal) Face/Nose/Sinus: Normal external nose present and Normal nares present (clear rhinorrhea, no nasal turbinate erythema or swelling) Throat: posterior oropharynx normal and uvula midline Eyes: Conjunctivae: conjunctivae normal Pupils: Equal, round and reactive pupils present EOM: EOMs intact bilaterally Neck: Neck: normal visual inspection, no lymphadenopathy and no meningeal signs Chest: Chest palpation & inspection: normal inspection of the chest Resp: Effort & Inspection: normal respiratory effort Au
== END 2023-01-15 12:00 | disposition home or self-care (01) ==
PROVIDERS: Emergency Provider Nurse Practitioner Family; PCP Internal Medicine
DX: J06.9 Acute upper respiratory infection, unspecified (principal); Z87.891 Personal history of nicotine dependence
CPT/HCPCS: 99213; G0463

== ENCOUNTER 2023-02-09 10:59 | Emergency (ER) | payer OTHER, SELFPAY ==
--- NOTE | ~2023-02-09 | CT_ITS ---
EXAMINATION: CT brain wo con DATE: 02/09/2023 12:12 INDICATION: Right-sided headache. Paresthesias. TECHNIQUE: Computed tomography (CT) of the head was performed without intravenous contrast. The mA wa s adjusted according to patient size. Iterative reconstruction technique was employed. The dose-lengt h product was 605.33 mGy-cm. COMPARISON: Head CT 09/16/2022, brain MRI 10/12/2022 FINDINGS: There are scattered areas of low attenuation in the cerebral white matter. There is no intr acranial hemorrhage, acute infarction, or abnormal intracranial mass lesion. The ventricles are ind[place] l in size. The orbits are normal. The paranasal sinuses are clear. The mastoid air cells are normal. IMPRESSION: 1. Stable mild nonspecific cerebral white matter disease. The differential diagnosis includes prematu re chronic small vessel ischemic disease (especially if the patient has cardiovascular risk factors), demyelinating disease such as multiple sclerosis, drug abuse, vasculitis, or reactive astrocytosis ( gliosis) secondary to nonspecific etiology. Reviewed, dictated and finalized at location A. IMPRESSION: 1. Stable mild nonspecific cerebral white matter disease. The differential diag nosis includes premature chronic small vessel ischemic disease (especially if t he patient has cardiovascular risk factors), demyelinating disease such as mult iple sclerosis, drug abuse, vasculitis, or reactive astrocytosis (gliosis) seco ndary to nonspecific etiology.
[2023-02-09 11:02] VITALS: BP 153/96; PULSE 63; RESP 18; TEMP 36.1; O2SAT 100
[2023-02-09 11:28] VITALS: PULSE 65
[2023-02-09 11:32] VITALS: BP 162/91; PULSE 72; RESP 18; O2SAT 100
--- NOTE | 2023-02-09 11:39 | ED.GENADULT ---
HPI - General Adult General Chief complaint: Neuro Symptoms/Deficit <BRENNAN Jacome Last Filed: 02/09/23 19:32> Stated complaint: facial numbness after migraine <BRENNAN Jacome Last Filed: 02/09/23 19:32> Time Seen by Provider: 02/09/23 11:18 <BRENNAN Jacome Last Filed: 02/09/23 19:32> Source: patient <BRENNAN Jacome Last Filed: 02/09/23 19:32> Mode of arrival: ambulatory <BRENNAN Jacome Filed: 02/09/23 19:32> Limitations: no limitations <BRENANN Jacome Filed: 02/09/23 19:32> History of Present Illness HPI narrative: Patient is a 42 y/o female who presents to the ED with c/o migraine headache. Patient reports a history of chronic migraines. She states she developed her current headache 3 days ago. The pain feels similar to her previous migraines. She also developed a tingling or pins and needles sensation to the right side of her face shortly after the pain began 3 days ago, which is not typical of her usual migraines. Patient takes Ubrelvy for her migraines, as well as Tylenol. Denied improvement with these. She sees a neurologist at an outside facility. She notes a Hx of white matter disease. She also reports having photophobia, phonophobia, nausea, vomiting, difficulty concentrating. She denies any fevers, neck pain, abdominal pain, vision loss, blurry/double vision, focal weakness, head injury, recent cough or cold sx's. <BRENNAN Jacome Last Filed: 02/09/23 19:32> Related Data Home medications: Home Medications Medication Instructions Recorded Confirmed ubrogepant 100 mg tablet (Ubrelvy) 100 mg PO ONCE 01/10/23 01/15/23 metoprolol succinate 50 mg 50 mg PO DAILY 01/15/23 01/15/23 tablet,extended release 24 hr <BRENNAN Jacome Filed: 02/09/23 19:32> Allergies/adverse reactions: Allergies Allergy/AdvReac Type Severity Reaction Status Date / Time amoxicillin Allergy Severe Anaphylaxis Verified 02/09/23 11:31 cinnamon Allergy Severe Anaphylaxis Verified 02/09/23 11:31 clavulanic acid Allergy Severe Anaphylaxis Verified 02/09/23 11:31 morphine Allergy Severe Anaphylaxis Verified 02/09/23 11:31 Penicillins Allergy Severe Anaphylaxis Verified 02/09/23 11:31 potassium Allergy Intermediate Hives Verified 02/09/23 11:31 codeine Allergy Mild RASH Verified 02/09/23 11:31 latex Allergy Mild Rash Verified 02/09/23 11:31 omeprazole Allergy Mild Vomiting Verified 02/09/23 11:31 propoxyphene Allergy Mild Hives Verified 02/09/23 11:31 zinc chloride Allergy Mild Unknown Verified 02/09/23 11:31 pantoprazole [From Protonix] Allergy Hives Verified 02/09/23 11:31 rizatriptan Allergy Hives Verified 02/09/23 11:31 shrimp Allergy Anaphylaxis Verified 02/09/23 11:31 sumatriptan [From Imitrex] Allergy Hives Verified 02/09/23 11:31 <Rose Dumont PA-C - Last Filed: 02/09/23 19:32> Review of Systems Review of Systems: CONSTITUTIONAL: Denies fever, chills, or sweats. EYES: See HPI. ENT: Denies rhinorrhea, congestion, sore throat. CARDIOVASCULAR: Denies chest pain, palpitations, or edema. RESPIRATORY: Denies cough or dyspnea. GASTROINTESTINAL: See HPI. GENITOURINARY: Denies dysuria or hematuria. SKIN: Denies rash or itching. MUSCULOSKELETAL: Denies back pain, neck pain, joint pain, or myalgia. NEUROLOGIC: See HPI. <Rose Dumont PA-C - Last Filed: 02/09/23 19:32> All systems reviewed & are unremarkable except as noted in HPI and below <Rose Dumont PA-C - Last Filed: 02/09/23 19:32> PMFSH Past Medical History Medical History: Medical History (Updated 02/09/23 @ 14:17 by Rose Dumont PA-C) Allergies Anxiety Conjunctivitis Cough COVID-19 Gastritis History of depression History of migraine White matter disease <Rose Dumont PA-C - Last Filed: 02/09/23 19:32> Surgical History Surgical History: Surgica
[2023-02-09] MEDS: SODIUM CHLORIDE 0.9% IV 1,000 ML 999 ML IV CONT (12:24)
[2023-02-09] MEDS: diphenhydrAMINE HCl INJ 50 MG/ML VIAL 25 MG IV PUSH (12:26)
[2023-02-09] MEDS: KETOROLAC 30 MG/ML VIAL (*BKC) IV PUSH (12:27)
[2023-02-09 14:33] VITALS: BP 137/65; PULSE 88; RESP 16; O2SAT 98
== END 2023-02-09 14:35 | disposition home or self-care (01) ==
PROVIDERS: Emergency Provider Physician Assistant; PCP Internal Medicine
DX: G43.909 Migraine, unspecified, not intractable, without status migrainosus (principal); R20.2 Paresthesia of skin; Z87.891 Personal history of nicotine dependence
CPT/HCPCS: 70450; 96365; 96375; 99284; J0131; J1200; J1885; J2765; J7030

== ENCOUNTER 2023-07-05 12:34 | Emergency (ER) | payer OTHER, SELFPAY ==
[2023-07-05 12:34] VITALS: BP 128/78; PULSE 74; RESP 14; TEMP 37.1; O2SAT 98
--- NOTE | 2023-07-05 12:51 | ED.HA ---
HPI - Headache General Chief Complaint: Headache Stated Complaint: headache, sneezing and cough for 3 days Time Seen by Provider: 07/05/23 12:43 Source: patient Mode of arrival: ambulatory Limitations: no limitations History of Present Illness HPI Narrative: this is a 42-year-old female with history of migraines presents with a history of sinus congestion with frontal sinus pressure and drainage with no audible wheezing no shortness of breath does have a postnasal drip with a nonproductive cough, the sinus congestion has exacerbated her migraine headache. Otherwise no fever chills no neck stiffness no shortness of breath no audible wheezing no chest pain no abdominal pain. Headache quality is frontal sinus and typical of her migraines. MD elicited complaint: headache, migraine and other Pertinent past history: migraines Onset (ago): day(s) Related Data Home Medications Medication Instructions Recorded Confirmed rimegepant 75 mg disintegrating 75 mg PO DAILY 05/09/23 07/05/23 tablet (Nurtec ODT) Allergies Allergy/AdvReac Type Severity Reaction Status Date / Time amoxicillin Allergy Severe Anaphylaxis Verified 06/11/23 14:00 cinnamon Allergy Severe Anaphylaxis Verified 06/11/23 14:00 clavulanic acid Allergy Severe Anaphylaxis Verified 06/11/23 14:00 morphine Allergy Severe Anaphylaxis Verified 06/11/23 14:00 Penicillins Allergy Severe Anaphylaxis Verified 06/11/23 14:00 potassium Allergy Intermediate Hives Verified 06/11/23 14:00 codeine Allergy Mild RASH Verified 06/11/23 14:00 latex Allergy Mild Rash Verified 06/11/23 14:00 omeprazole Allergy Mild Vomiting Verified 06/11/23 14:00 propoxyphene Allergy Mild Hives Verified 06/11/23 14:00 zinc chloride Allergy Mild Unknown Verified 06/11/23 14:00 loratadine Allergy Dyspnea / Verified 06/11/23 15:37 SOB pantoprazole [From Protonix] Allergy Hives Verified 06/11/23 14:00 rizatriptan Allergy Hives Verified 06/11/23 14:00 shrimp Allergy Anaphylaxis Verified 06/11/23 14:00 sumatriptan [From Imitrex] Allergy Hives Verified 06/11/23 14:00 Review of Systems Review of Systems: All systems reviewed & are unremarkable except as noted in HPI and below PMFSH Past Medical History Medical History Allergies Anxiety Conjunctivitis Cough COVID-19 Gastritis History of depression History of migraine Recurrent cold sores Sinusitis, acute White matter disease Surgical History Surgical History History of endometrial ablation Hx of tonsillectomy Family History Family History Grandparent Diabetes mellitus Heart problem Cerebrovascular accident Father Lymphoma Alcoholism Cancer Sibling Hypertension Depression Mother Heart problem Hypertension Social History Social History Smoking status: Former smoker Second hand tobacco smoke exposure: No Alcohol intake: former Substance use: former Lack of Transportation: No Lack of Food: Never True Concerned About Future Housing: No Difficulty Paying Gas/Electric Bills: No Difficulty Paying for Meds: No Currently Unemployed: YES Education: High School Diploma/GED Difficulty w/ Childcare or Family Care: No Living arrangements: with family Occupation/Education: occupation Gender identity (if verbalized by the patient): Female Exam Const: General: healthy appearing Nutritional Appearance: well nourished Orientation/consciousness: patient oriented x3 Limitations: no limitations HENMT: Other: Frontal and maxillary sinus tenderness with palpation with postnasal drip Eyes: Conjunctivae: conjunctivae normal Neck: Neck: normal visual inspection Chest: Chest palpation & inspection: normal inspection of the chest Resp: Effort & Inspection:
[2023-07-05] MEDS: KETOROLAC (*BKC) 60 MG/2 ML VIAL IM (12:59)
[2023-07-05 13:09] VITALS: BP 128/78; PULSE 83; RESP 20; O2SAT 98
== END 2023-07-05 13:15 | disposition home or self-care (01) ==
LOC: CHSED 13:02
PROVIDERS: Emergency Provider Emergency Medicine; PCP Internal Medicine
DX: J01.10 Acute frontal sinusitis, unspecified (principal); G43.909 Migraine, unspecified, not intractable, without status migrainosus; Z87.891 Personal history of nicotine dependence
CPT/HCPCS: 96372; 99283; J1885

== ENCOUNTER 2023-07-24 21:22 | Emergency (ER) | payer OTHER, SELFPAY ==
[2023-07-24 21:25] VITALS: BP 147/76; PULSE 79; RESP 18; TEMP 36.6; O2SAT 98
--- NOTE | 2023-07-24 21:29 | ED.HA ---
HPI - Headache General Chief Complaint: Headache Stated Complaint: headache Time Seen by Provider: 07/24/23 21:28 Source: patient Mode of arrival: ambulatory Limitations: no limitations History of Present Illness HPI Narrative: this is a 42 year female with chronic sinus pressure headache frontal sinus area with nasal congestion bilateral ear pressure with no fever chills no shortness of breath. MD elicited complaint: headache Pertinent past history: other ( sinus congestion) Onset (ago): month(s) Onset description: gradually Related Data Home Medications Medication Instructions Recorded Confirmed rimegepant 75 mg disintegrating 75 mg PO DAILY 05/09/23 07/24/23 tablet (Nurtec ODT) Allergies Allergy/AdvReac Type Severity Reaction Status Date / Time amoxicillin Allergy Severe Anaphylaxis Verified 06/11/23 14:00 cinnamon Allergy Severe Anaphylaxis Verified 06/11/23 14:00 clavulanic acid Allergy Severe Anaphylaxis Verified 06/11/23 14:00 morphine Allergy Severe Anaphylaxis Verified 06/11/23 14:00 Penicillins Allergy Severe Anaphylaxis Verified 06/11/23 14:00 potassium Allergy Intermediate Hives Verified 06/11/23 14:00 codeine Allergy Mild RASH Verified 06/11/23 14:00 latex Allergy Mild Rash Verified 06/11/23 14:00 omeprazole Allergy Mild Vomiting Verified 06/11/23 14:00 propoxyphene Allergy Mild Hives Verified 06/11/23 14:00 zinc chloride Allergy Mild Unknown Verified 06/11/23 14:00 loratadine Allergy Dyspnea / Verified 06/11/23 15:37 SOB pantoprazole [From Protonix] Allergy Hives Verified 06/11/23 14:00 rizatriptan Allergy Hives Verified 06/11/23 14:00 shrimp Allergy Anaphylaxis Verified 06/11/23 14:00 sumatriptan [From Imitrex] Allergy Hives Verified 06/11/23 14:00 Review of Systems Review of Systems: All systems reviewed & are unremarkable except as noted in HPI and below PMFSH Past Medical History Medical History Allergies Anxiety Conjunctivitis Cough COVID-19 Gastritis History of depression History of migraine Recurrent cold sores Sinusitis, acute White matter disease Surgical History Surgical History History of endometrial ablation Hx of tonsillectomy Family History Family History Grandparent Diabetes mellitus Heart problem Cerebrovascular accident Father Lymphoma Alcoholism Cancer Sibling Hypertension Depression Mother Heart problem Hypertension Social History Social History Smoking status: Former smoker Second hand tobacco smoke exposure: No Alcohol intake: former Substance use: former Lack of Transportation: No Lack of Food: Never True Concerned About Future Housing: No Difficulty Paying Gas/Electric Bills: No Difficulty Paying for Meds: No Currently Unemployed: YES Education: High School Diploma/GED Difficulty w/ Childcare or Family Care: No Living arrangements: with family Occupation/Education: occupation Gender identity (if verbalized by the patient): Female Exam Const: General: healthy appearing Nutritional Appearance: well nourished Orientation/consciousness: patient oriented x3 Limitations: no limitations HENMT: Other: Frontal and maxillary sinus tenderness palpation with bilateral ear pressure bilateral nasal turbinate congestion and erythema Eyes: Conjunctivae: conjunctivae normal Pupils: Equal, round and reactive pupils present Neck: Neck: normal visual inspection Chest: Chest palpation & inspection: normal inspection of the chest Resp: Effort & Inspection: normal respiratory effort Auscultation: clear to auscultation bilaterally Cardio: Rate: regular rate Rhythm: regular rhythm GI: GI Palp: Yes Soft to palpation Auscultation: normal bowel sounds Psych: Mental Sta
[2023-07-24] MEDS: KETOROLAC (*BKC) 60 MG/2 ML VIAL IM (21:41)
--- NOTE | 2023-07-24 21:45 | PC.NURSE ---
Pt resting, lights dimmed, stated hopefully this shot will help she stated she will call her FMD tomorrow to f/u for possible sinus CT due to dealing c these sinus headaches for months .
[2023-07-24 22:11] VITALS: BP 144/82; PULSE 78; RESP 18; TEMP 36.6; O2SAT 99
== END 2023-07-24 22:13 | disposition home or self-care (01) ==
PROVIDERS: Emergency Provider Emergency Medicine; PCP Internal Medicine
DX: J01.11 Acute recurrent frontal sinusitis (principal); Z87.891 Personal history of nicotine dependence
CPT/HCPCS: 96372; 99283; J1885

== ENCOUNTER 2023-08-17 15:48 | Emergency (ER) | payer OTHER, SELFPAY ==
--- NOTE | ~2023-08-17 | XR_ITS ---
EXAM: XR shoulder RT min 2V DATE: 08/17/2023 16:13 HISTORY: DISLOCATION 3 DAYS AGO, STILL HAVING PAIN TO PROX SHOULDER . COMPARISON: 08/08/2022. FINDINGS: Normal mineralization. No fracture or dislocation. No lytic or blastic lesion. Joint space s are maintained. No erosion or periosteal change. Soft tissues within normal limits. IMPRESSION: No acute osseous finding in the right shoulder. Reviewed, dictated and finalized at location [facility].
[2023-08-17 15:48] VITALS: BP 148/87; PULSE 62; RESP 16; TEMP 36.7; O2SAT 98
--- NOTE | 2023-08-17 16:04 | ED.UPPEXIN ---
HPI - Extremity Injury (Upper) General Chief Complaint: Extremity Injury, Upper Stated Complaint: migraine; right shoulder pain Time Seen by Provider: 08/17/23 15:59 Source: patient Mode of arrival: ambulatory Limitations: no limitations History of Present Illness HPI narrative: patient is a 43-year-old female here for right shoulder recent dislocation and neck pain associated with a migraine. MD complaint: injury to: right and shoulder Onset (ago): day(s) (2) Other Extremity Injury: Right: shoulder Other injuries: none Place: home Severity: moderate Severity scale (1-10): 6 Relieving factors: immobilization Exacerbating factors: movement of extremity Context: injury Associated symptoms: neck pain and other ( Migraine (patient has known migraines)) Related Data Allergies Allergy/AdvReac Type Severity Reaction Status Date / Time amoxicillin Allergy Severe Anaphylaxis Verified 08/06/23 14:04 cinnamon Allergy Severe Anaphylaxis Verified 08/06/23 14:04 clavulanic acid Allergy Severe Anaphylaxis Verified 08/06/23 14:04 morphine Allergy Severe Anaphylaxis Verified 08/06/23 14:04 Penicillins Allergy Severe Anaphylaxis Verified 08/06/23 14:04 potassium Allergy Intermediate Hives Verified 08/06/23 14:04 codeine Allergy Mild RASH Verified 08/06/23 14:04 latex Allergy Mild Rash Verified 08/06/23 14:04 omeprazole Allergy Mild Vomiting Verified 08/06/23 14:04 propoxyphene Allergy Mild Hives Verified 08/06/23 14:04 zinc chloride Allergy Mild Unknown Verified 08/06/23 14:04 loratadine Allergy Dyspnea / Verified 08/06/23 14:04 SOB pantoprazole [From Protonix] Allergy Hives Verified 08/06/23 14:04 rizatriptan Allergy Hives Verified 08/06/23 14:04 shrimp Allergy Anaphylaxis Verified 08/06/23 14:04 sumatriptan [From Imitrex] Allergy Hives Verified 08/06/23 14:04 Review of Systems Review of Systems: All systems reviewed & are unremarkable except as noted in HPI and below Constitutional: Constitutional: Reports no additional constitutional complaints Eyes: Eyes: Reports no additional eye complaints ENT: Reports system reviewed and no additional complaints, except as documented Cardiovascular: Cardiovascular: Reports no additional cardiovascular complaints Respiratory: Respiratory: Reports no additional respiratory complaints Gastrointestinal: Gastrointestinal: Reports no additional gastrointestinal complaints Genitourinary: Genitourinary: Reports no additional female genitourinary complaints Musculoskeletal: Musculoskeletal: Reports no additional musculoskeletal complaints Integumentary/Breasts: Skin/Breast: Reports system reviewed and no additional complaints, except as docu Neurologic: Reports system reviewed and no additional complaints, except as documented Psychiatric: Psychiatric: Reports no additional psychiatric complaints Endocrine: Endocrine: Reports no additional endocrine complaints Hematologic/Lymphatic: Hematologic/Lymphatic: Reports no additional hematologic/lymphatic complaints Allergic/Immunologic: Allergic/Immunologic: Reports no additional allergic/immunologic complaints PMFSH Past Medical History Medical History Allergies Anxiety Conjunctivitis Cough COVID-19 Gastritis History of depression History of migraine Recurrent cold sores Sinusitis, acute White matter disease Surgical History Surgical History History of endometrial ablation Hx of tonsillectomy Family History Family History Grandparent Diabetes mellitus Heart problem Cerebrovascular accident Father Lymphoma Alcoholism Cancer Sibling Hypertension Depression Mother Heart problem Hypertension Social History Social History Smoking status: Former smoker Second hand tobacco smoke exposur
[2023-08-17] MEDS: KETOROLAC (*BKC) 60 MG/2 ML VIAL IM (16:16)
--- NOTE | 2023-08-17 16:21 | PC.NURSE ---
pt given ice pack for head and shoulder as requested.
[2023-08-17 16:51] VITALS: BP 138/85; PULSE 87; RESP 20; TEMP 37.1; O2SAT 98
== END 2023-08-17 16:53 | disposition home or self-care (01) ==
PROVIDERS: Emergency Provider Emergency Medicine; PCP Internal Medicine
DX: S16.1XXA Strain of muscle, fascia and tendon at neck level, initial encounter (principal); M25.511 Pain in right shoulder; R51.9 Headache, unspecified; Z87.891 Personal history of nicotine dependence; X58.XXXA Exposure to other specified factors, initial encounter
CPT/HCPCS: 73030; 96372; 99283; J1885

== ENCOUNTER 2023-09-02 12:37 | Emergency (ER) | payer OTHER, SELFPAY ==
--- NOTE | 2023-09-02 12:48 | PC.NURSE ---
Pt left before being triaged, states she is goign to another hospital.
== END 2023-09-02 12:53 | disposition left against medical advice (07) ==
LOC: ANHED 12:53
PROVIDERS: PCP Internal Medicine
DX: Z53.21 Procedure and treatment not carried out due to patient leaving prior to being seen by health care provider (principal)
CPT/HCPCS: 99199

== ENCOUNTER 2023-09-09 13:47 | Outpatient (CLI) | payer OTHER, SELFPAY ==
[2023-09-09 14:03] LABS: Basophils Absolute Auto 0.03 K/mm3 (0.00-0.10); Basophils Percent Auto 0.5 % (0.0-1.0); Eosinophils Absolute Auto 0.14 K/mm3 (0.02-0.50); Eosinophils Percent Auto 2.4 % (1.0-6.0); Hematocrit 38.6 % (35.0-49.0); Hemoglobin 13.4 g/dL (12.0-15.0); Immature Granulocyte Absolute 0.02 K/mm3 (0.00-0.00); Immature Granulocyte Percent A 0.3 % (0.0-0.0); Lymphocytes Absolute Auto 1.96 K/mm3 (1.10-4.50); Lymphocytes Percent Auto 33.6 % (18.0-42.0); Mean Corpuscular HGB Conc 34.7 g/dL (32.0-36.0); Mean Corpuscular Hemoglobin 31.5 pg (27.0-31.0); Mean Corpuscular Volume 90.6 fL (78.0-102.0); Mean Platelet Volume 8.1 fl (9.2-11.8); Monocytes Absolute Auto 0.27 K/mm3 (0.10-0.90); Monocytes Percent Auto 4.6 % (2.0-11.0); Neutrophils Absolute Auto 3.4 K/mm3 (1.7-7.2); Neutrophils Percent Auto 58.6 % (50.0-70.0); Platelet Count Result 228 K/mm3 (150-420); Red Blood Count 4.26 M/mm3 (4.20-5.40); Red Cell Distribution Width 12.2 % (11.6-14.4); White Blood Count 5.8 K/mm3 (4.8-10.8)
[2023-09-09 14:27] LABS: Alanine Aminotransferase 15 U/L (14-59); Albumin Level 3.6 g/dL (3.4-5.0); Alkaline Phosphatase 59 U/L (46-116); Anion Gap 9 mmol/L (8-16); Aspartate Amino Transferase < 10 U/L (15-37); Bilirubin,Total 0.3 mg/dL (0.00-1.00); Blood Urea Nitrogen 10 mg/dL (7-18); Calcium 9.1 mg/dL (8.5-10.1); Carbon Dioxide 28 mmol/L (21-32); Chloride 104 mmol/L (98-108); Estimated Glomerular Filt Rate > 60; Glucose 106 mg/dL (70-99); Osmolality Calculated 291 mOsm/kg (285-295); Potassium 4.4 mmol/L (3.5-5.1); Sodium 141 mmol/L (136-145); Total Protein 6.4 g/dL (6.4-8.2)
== END 2023-09-09 13:48 | disposition home or self-care (01) ==
LOC: CHSLAB 13:50
PROVIDERS: PCP Physician Assistant; Visit Provider Physician Assistant
DX: Z80.7 Family history of other malignant neoplasms of lymphoid, hematopoietic and related tissues (principal)
CPT/HCPCS: 36415; 80053; 85025

== ENCOUNTER 2023-09-27 18:17 | Emergency (ER) | payer OTHER, SELFPAY ==
[2023-09-27 18:26] VITALS: BP 143/89; PULSE 67; RESP 12; TEMP 36.8; O2SAT 100
--- NOTE | 2023-09-27 18:45 | ED.HA ---
HPI - Headache General Chief Complaint: Headache Stated Complaint: headache Time Seen by Provider: 09/27/23 18:29 Source: patient Mode of arrival: ambulatory Limitations: no limitations History of Present Illness HPI Narrative: 43-year-old female with a history of Anxiety/depression, hypertension, migraine since a teenager presents to the ER with -- left frontal/facial headache for the past 2 weeks -- blurred vision/ decreased vision in her left eye. no other focal neuro deficits -- nausea without any vomiting no fever or chills. MD elicited complaint: headache and migraine Onset (ago): week(s) Onset description: gradually Location: left, frontal and facial Quality & Timing: throbbing Exacerbating factors: light Relieving factors: nothing Context: occurred at rest Associated symptoms: none and vision loss Related Data Home Medications Medication Instructions Recorded Confirmed sertraline 100 mg tablet 100 mg PO DAILY 09/27/23 09/27/23 Allergies Allergy/AdvReac Type Severity Reaction Status Date / Time amoxicillin Allergy Severe Anaphylaxis Verified 09/27/23 18:31 cinnamon Allergy Severe Anaphylaxis Verified 09/27/23 18:31 clavulanic acid Allergy Severe Anaphylaxis Verified 09/27/23 18:31 morphine Allergy Severe Anaphylaxis Verified 09/27/23 18:31 Penicillins Allergy Severe Anaphylaxis Verified 09/27/23 18:31 potassium Allergy Intermediate Hives Verified 09/27/23 18:31 codeine Allergy Mild RASH Verified 09/27/23 18:31 latex Allergy Mild Rash Verified 09/27/23 18:31 omeprazole Allergy Mild Vomiting Verified 09/27/23 18:31 propoxyphene Allergy Mild Hives Verified 09/27/23 18:31 zinc chloride Allergy Mild Unknown Verified 09/27/23 18:31 loratadine Allergy Dyspnea / Verified 09/27/23 18:31 SOB pantoprazole [From Protonix] Allergy Hives Verified 09/27/23 18:31 rizatriptan Allergy Hives Verified 09/27/23 18:31 shrimp Allergy Anaphylaxis Verified 09/27/23 18:31 sumatriptan [From Imitrex] Allergy Hives Verified 09/27/23 18:31 Review of Systems Review of Systems: All systems reviewed & are unremarkable except as noted in HPI and below Constitutional: Constitutional: Reports as per HPI and Reports no additional constitutional complaints Eyes: Eyes: Reports as per HPI and Reports no additional eye complaints Comments: blurred vision/decreased vision left eye ENT: Reports system reviewed and no additional complaints, except as documented and Reports as per HPI Cardiovascular: Cardiovascular: Reports as per HPI and Reports no additional cardiovascular complaints Respiratory: Respiratory: Reports as per HPI and Reports no additional respiratory complaints Gastrointestinal: Gastrointestinal: Reports as per HPI and Reports no additional gastrointestinal complaints Genitourinary: Genitourinary: Reports no additional female genitourinary complaints and Reports as per HPI Musculoskeletal: Musculoskeletal: Reports no additional musculoskeletal complaints and Reports as per HPI Integumentary/Breasts: Skin/Breast: Reports system reviewed and no additional complaints, except as docu and Reports as per HPI Neurologic: Reports system reviewed and no additional complaints, except as documented and Reports as per HPI Comments: no focal neuro deficit Psychiatric: Psychiatric: Reports no additional psychiatric complaints and Reports as per HPI Endocrine: Endocrine: Reports no additional endocrine complaints and Reports as per HPI Hematologic/Lymphatic: Hematologic/Lymphatic: Reports no additional hematologic/lymphatic complaints and Reports as per HPI Allergic/Immunologic: Allergic/Immunologic: Reports no additional allergic/immunologic complaints and Reports as per HPI [facility] Past Medical History Medical History Allergies Anxiety Conjunctivitis Cough COVID-19 Gastritis History of depression History of migraine Recurrent cold sores Sinusitis,
[2023-09-27] MEDS: KETOROLAC (*BKC) 60 MG/2 ML VIAL IM (18:48)
[2023-09-27] MEDS: PROCHLORPERAZINE EDISYLATE 10 MG/2 ML VIAL IM (18:48)
[2023-09-27 19:18] VITALS: BP 135/74; PULSE 89; RESP 18; TEMP 36.6; O2SAT 98
[2023-09-27 19:20] VITALS: TEMP 36.6
== END 2023-09-27 19:29 | disposition home or self-care (01) ==
PROVIDERS: Emergency Provider Internal Medicine Critical Care Medicine; PCP Physician Assistant
DX: G43.109 Migraine with aura, not intractable, without status migrainosus (principal); F41.9 Anxiety disorder, unspecified; F32.A Depression, unspecified; I10 Essential (primary) hypertension; Z79.899 Other long term (current) drug therapy; Z87.891 Personal history of nicotine dependence
CPT/HCPCS: 96372; 99284; J0780; J1885

== ENCOUNTER 2023-09-30 07:44 | Outpatient (CLI) | payer OTHER, SELFPAY ==
--- NOTE | ~2023-09-30 | US_ITS ---
US abdomen complete EXAMINATION: US Abdomen Complete INDICATION: Epigastric pain PROCEDURE: Realtime High Resolution abdomen ultrasound. COMPARISON: No prior studies for comparison FINDINGS: Gallbladder within normal limits. No gallstones, pericholecystic fluid, gallbladder wall t hickening or biliary dilatation. Common bile duct measures 3.5 mm. Liver echotexture is increased, consistent with fatty infiltration. Pancreas within normal limits. Pancreatic tail is obscured by bowel gas. Spleen is unremarkeable. Renal echotexture is within [place] l limits bilaterally without hydronephrosis, contour deforming mass or renal stone. Right kidney kerwin ures 10.1 cm. Left kidney measures 9.6 cm. Visualized aspects of the aorta and IVC are within normal limits. Portal vein is patent. No sonograph ic Baig's sign indicated by the technologist. IMPRESSION: 1: Hepatic steatosis. Reviewed, dictated and finalized at location L. [employer] IMPRESSION: 1: Hepatic steatosis.
== END 2023-09-30 07:45 | disposition home or self-care (01) ==
LOC: CHSIMG 07:46
PROVIDERS: PCP Physician Assistant; Visit Provider Physician Assistant
DX: R10.13 Epigastric pain (principal); K76.0 Fatty (change of) liver, not elsewhere classified
CPT/HCPCS: 76700

== ENCOUNTER 2023-10-25 16:38 | Emergency (ER) | payer OTHER, SELFPAY ==
--- NOTE | 2023-10-25 17:00 | ED.HA ---
HPI - Headache General Chief Complaint: Headache Stated Complaint: headache; migraine Time Seen by Provider: 10/25/23 16:57 Source: patient Mode of arrival: ambulatory Limitations: no limitations History of Present Illness HPI Narrative: 43-year-old female with a history migraine, anxiety / depression presents to the ER with -- bilateral frontal headache which started 5 days ago. No aura. Has nausea without any vomiting. No photophobia. No fever. No focal neuro deficit. Her headache has gradually increased. Patient has had a history of complicated migraine with left visual loss during her previous headache episode with spontaneous resolution. MD elicited complaint: migraine Pertinent past history: migraines Onset (ago): day(s) ( Five days) Onset description: gradually Location: frontal Quality & Timing: aching Exacerbating factors: none Relieving factors: nothing Context: occurred at rest Associated symptoms: nausea Treatments prior to arrival: none Related Data Home Medications Medication Instructions Recorded Confirmed sertraline 100 mg tablet 100 mg PO DAILY 09/27/23 10/25/23 Allergies Allergy/AdvReac Type Severity Reaction Status Date / Time amoxicillin Allergy Severe Anaphylaxis Verified 10/25/23 16:48 cinnamon Allergy Severe Anaphylaxis Verified 10/25/23 16:48 clavulanic acid Allergy Severe Anaphylaxis Verified 10/25/23 16:48 morphine Allergy Severe Anaphylaxis Verified 10/25/23 16:48 Penicillins Allergy Severe Anaphylaxis Verified 10/25/23 16:48 potassium Allergy Intermediate Hives Verified 10/25/23 16:48 codeine Allergy Mild RASH Verified 10/25/23 16:48 latex Allergy Mild Rash Verified 10/25/23 16:48 omeprazole Allergy Mild Vomiting Verified 10/25/23 16:48 propoxyphene Allergy Mild Hives Verified 10/25/23 16:48 zinc chloride Allergy Mild Unknown Verified 10/25/23 16:48 loratadine Allergy Dyspnea / Verified 10/25/23 16:48 SOB pantoprazole [From Protonix] Allergy Hives Verified 10/25/23 16:48 rizatriptan Allergy Hives Verified 10/25/23 16:48 shrimp Allergy Anaphylaxis Verified 10/25/23 16:48 sumatriptan [From Imitrex] Allergy Hives Verified 10/25/23 16:48 Review of Systems Review of Systems: All systems reviewed & are unremarkable except as noted in HPI and below Constitutional: Constitutional: Reports as per HPI and Reports no additional constitutional complaints Eyes: Eyes: Reports as per HPI and Reports no additional eye complaints ENT: Reports system reviewed and no additional complaints, except as documented and Reports as per HPI Cardiovascular: Cardiovascular: Reports as per HPI and Reports no additional cardiovascular complaints Respiratory: Respiratory: Reports as per HPI and Reports no additional respiratory complaints Gastrointestinal: Gastrointestinal: Reports as per HPI and Reports no additional gastrointestinal complaints Genitourinary: Genitourinary: Reports no additional female genitourinary complaints and Reports as per HPI Musculoskeletal: Musculoskeletal: Reports no additional musculoskeletal complaints and Reports as per HPI Integumentary/Breasts: Skin/Breast: Reports system reviewed and no additional complaints, except as docu and Reports as per HPI Neurologic: Reports system reviewed and no additional complaints, except as documented, Reports as per HPI and Reports headache(s) Psychiatric: Psychiatric: Reports no additional psychiatric complaints and Reports as per HPI Endocrine: Endocrine: Reports no additional endocrine complaints Hematologic/Lymphatic: Hematologic/Lymphatic: Reports no additional hematologic/lymphatic complaints and Reports as per HPI Allergic/Immunologic: Allergic/Immunologic: Reports no additional allergic/immunologic complaints and Reports as per HPI [facility] Past Medical History Medical History Allergies Anxiety Conjunctivitis Cough COVID-19 Gastritis History of depression History
[2023-10-25] MEDS: KETOROLAC (*BKC) 60 MG/2 ML VIAL IM (17:16)
[2023-10-25] MEDS: PROCHLORPERAZINE EDISYLATE 10 MG/2 ML VIAL IM (17:16)
[2023-10-25 17:24] VITALS: BP 139/87; PULSE 70; RESP 12; TEMP 36.7; O2SAT 99
== END 2023-10-25 17:28 | disposition home or self-care (01) ==
LOC: CHSED 17:24
PROVIDERS: Emergency Provider Internal Medicine Critical Care Medicine; PCP Physician Assistant
DX: G43.901 Migraine, unspecified, not intractable, with status migrainosus (principal); Z79.899 Other long term (current) drug therapy; Z87.891 Personal history of nicotine dependence
CPT/HCPCS: 96372; 99284; J0780; J1885

== ENCOUNTER 2023-11-05 15:14 | Emergency (ER) | payer OTHER, SELFPAY ==
--- NOTE | 2023-11-05 15:20 | ED.HA ---
HPI - Headache General Chief Complaint: Headache Stated Complaint: MIGRAINE Time Seen by Provider: 11/05/23 15:20 Source: patient Mode of arrival: ambulatory Limitations: no limitations History of Present Illness HPI Narrative: 43-year-old female with a history of anxiety, migraine presents to the ER with the 3 day history of -- right frontal headache -- nausea with multiple episodes of vomiting MD elicited complaint: headache and migraine Pertinent past history: migraines Onset (ago): day(s) ( 3 days) Onset description: gradually Location: right and frontal Severity: severe Quality & Timing: throbbing Exacerbating factors: light and noise Relieving factors: nothing Context: occurred at rest Associated symptoms: none, nausea and vomiting Treatments prior to arrival: none Related Data Home Medications Medication Instructions Recorded Confirmed sertraline 100 mg tablet 100 mg PO DAILY 09/27/23 11/05/23 galcanezumab-gnlm 120 mg/mL 120 mg subcut WEEKLY 11/05/23 11/05/23 subcutaneous pen injector (Emgality Pen) Allergies Allergy/AdvReac Type Severity Reaction Status Date / Time amoxicillin Allergy Severe Anaphylaxis Verified 11/05/23 15:29 cinnamon Allergy Severe Anaphylaxis Verified 11/05/23 15:29 clavulanic acid Allergy Severe Anaphylaxis Verified 11/05/23 15:29 morphine Allergy Severe Anaphylaxis Verified 11/05/23 15:29 Penicillins Allergy Severe Anaphylaxis Verified 11/05/23 15:29 potassium Allergy Intermediate Hives Verified 11/05/23 15:29 codeine Allergy Mild RASH Verified 11/05/23 15:29 latex Allergy Mild Rash Verified 11/05/23 15:29 omeprazole Allergy Mild Vomiting Verified 11/05/23 15:29 propoxyphene Allergy Mild Hives Verified 11/05/23 15:29 zinc chloride Allergy Mild Unknown Verified 11/05/23 15:29 loratadine Allergy Dyspnea / Verified 11/05/23 15:29 SOB pantoprazole [From Protonix] Allergy Hives Verified 11/05/23 15:29 rizatriptan Allergy Hives Verified 11/05/23 15:29 shrimp Allergy Anaphylaxis Verified 11/05/23 15:29 sumatriptan [From Imitrex] Allergy Hives Verified 11/05/23 15:29 Review of Systems Review of Systems: All systems reviewed & are unremarkable except as noted in HPI and below Constitutional: Constitutional: Reports as per HPI and Reports no additional constitutional complaints Eyes: Eyes: Reports as per HPI and Reports no additional eye complaints ENT: Reports system reviewed and no additional complaints, except as documented and Reports as per HPI Cardiovascular: Cardiovascular: Reports as per HPI and Reports no additional cardiovascular complaints Respiratory: Respiratory: Reports as per HPI and Reports no additional respiratory complaints Gastrointestinal: Gastrointestinal: Reports as per HPI and Reports no additional gastrointestinal complaints Genitourinary: Genitourinary: Reports no additional female genitourinary complaints and Reports as per HPI Musculoskeletal: Musculoskeletal: Reports no additional musculoskeletal complaints and Reports as per HPI Integumentary/Breasts: Skin/Breast: Reports system reviewed and no additional complaints, except as docu and Reports as per HPI Neurologic: Reports system reviewed and no additional complaints, except as documented, Reports as per HPI and Reports headache(s) Psychiatric: Psychiatric: Reports no additional psychiatric complaints and Reports as per HPI Endocrine: Endocrine: Reports no additional endocrine complaints and Reports as per HPI Hematologic/Lymphatic: Hematologic/Lymphatic: Reports no additional hematologic/lymphatic complaints and Reports as per HPI Allergic/Immunologic: Allergic/Immunologic: Reports no additional allergic/immunologic complaints and Reports as per HPI [facility] Past Medical History Medical History Allergies Anxiety Conjunctivitis Cough COVID-19 Gastritis History of depression History of migraine Recurrent cold sores Sinusitis, ac
[2023-11-05 15:27] VITALS: BP 134/84; PULSE 65; RESP 18; TEMP 36.6; O2SAT 98
[2023-11-05] MEDS: PROCHLORPERAZINE EDISYLATE 10 MG/2 ML VIAL IM (15:33)
[2023-11-05] MEDS: KETOROLAC (*BKC) 60 MG/2 ML VIAL IM (15:34)
[2023-11-05 16:46] VITALS: BP 132/82; PULSE 67; RESP 18; O2SAT 98
== END 2023-11-05 16:48 | disposition home or self-care (01) ==
PROVIDERS: Emergency Provider Internal Medicine Critical Care Medicine; PCP Physician Assistant
DX: G43.909 Migraine, unspecified, not intractable, without status migrainosus (principal); Z79.899 Other long term (current) drug therapy; Z87.891 Personal history of nicotine dependence
CPT/HCPCS: 96372; 99284; J0780; J1885

== ENCOUNTER 2023-11-18 08:52 | Emergency (ER) | payer OTHER, SELFPAY ==
--- NOTE | ~2023-11-18 | CT_ITS ---
EXAMINATION: CT abdomen pelvis wo con DATE: 11/18/2023 09:46 INDICATION: Mid to low abdominal stabbing pain TECHNIQUE: Computed tomography (CT) of the abdomen and pelvis was performed without intravenous contr ast. Automated exposure control and iterative reconstruction technique were employed. Exam dose: 999 .28 mGy-cm total exam DLP. COMPARISON: 09/30/2023 complete abdominal ultrasound 03/01/2022 CT abdomen pelvis FINDINGS: The lung bases are clear. Normal heart size. No pericardial or pleural effusion. The liver, spleen, pancreas, adrenal glands and kidneys are unremarkable. No bile duct or pancreatic duct dilatation. No urinary tract calculus or hydroureteronephrosis. The uterus, adnexal areas and urinary bladder are unremarkable. Normal caliber of the abdominal aorta. No intraperitoneal or retroperitoneal or pelvic mass lesion o r lymphadenopathy or ascites. Normal appendix. No bowel obstruction or intraperitoneal free air. Small fat containing umbilical hernia. Included skeletal structures are unremarkable. IMPRESSION: No significant abnormality Reviewed, dictated and finalized at Location [facility]. Reviewed, dictated and finalized at location L. [employer] IMPRESSION: No significant abnormality
[2023-11-18 08:53] VITALS: BP 125/77; PULSE 82; RESP 20; TEMP 36.4; O2SAT 99
[2023-11-18 09:01] VITALS: BP 125/77; PULSE 82; RESP 20; TEMP 36.4; O2SAT 99
[2023-11-18 09:09] LABS: Appearance Urine Clear (Clear); Bilirubin Urine Negative (Negative); Blood Urine Negative (Negative); Color Urine Yellow (Yellow); Glucose Urine UA Negative (Negative); Ketones Urine Negative (Negative); Leukocyte Esterase Ur Negative LEU/UL (Negative); Nitrate Urine Negative (Negative); Protein Urine Negative (Negative); Specific Grav Ur 1.025 (1.010-1.020); Urobilinogen Urine 0.2 mg/dL (0.2-1.0)
[2023-11-18 09:12] LABS: Add Urine Microscopic? NO
[2023-11-18 09:13] LABS: Pregnancy On Board Control Positive; Urine Pregnancy Test Negative
--- NOTE | 2023-11-18 09:22 | ED.ABDPAIN ---
HPI - Abdominal Pain General Chief Complaint: Headache Stated Complaint: migraine/abdominal pain Time Seen by Provider: 11/18/23 08:52 Source: patient Mode of arrival: ambulatory Limitations: no limitations History of Present Illness HPI narrative: Patient is a 43-year-old female with migraine headache and abdominal pain of unclear origin. She has been having abdominal pain for the past few days. Pain is mid epigastric. MD elicited complaint: abdominal pain Pertinent past history: other ( Recurrent ER visits for migraines; pending neurologist 11/24/2023) Onset (ago): day(s) (3) Pain Consistency: constant Location: epigastric and periumbilical Severity: moderate Pain scale (0-10): 6 Quality: cramping and sharp Radiation: none Migration to: no migration Exacerbating factors: nothing Relieving factors: nothing and other ( on 11/05/2023 she got Toradol and Compazine with good relief) Associated symptoms: other ( migraine headache) Treatments prior to arrival: NSAIDs Related Data Home Medications Medication Instructions Recorded Confirmed sertraline 100 mg tablet 100 mg PO DAILY 09/27/23 11/18/23 galcanezumab-gnlm 120 mg/mL 120 mg subcut WEEKLY 11/05/23 11/18/23 subcutaneous pen injector (Emgality Pen) Allergies Allergy/AdvReac Type Severity Reaction Status Date / Time amoxicillin Allergy Severe Anaphylaxis Verified 11/18/23 08:59 cinnamon Allergy Severe Anaphylaxis Verified 11/18/23 08:59 clavulanic acid Allergy Severe Anaphylaxis Verified 11/18/23 08:59 morphine Allergy Severe Anaphylaxis Verified 11/18/23 08:59 Penicillins Allergy Severe Anaphylaxis Verified 11/18/23 08:59 potassium Allergy Intermediate Hives Verified 11/18/23 08:59 codeine Allergy Mild RASH Verified 11/18/23 08:59 latex Allergy Mild Rash Verified 11/18/23 08:59 omeprazole Allergy Mild Vomiting Verified 11/18/23 08:59 propoxyphene Allergy Mild Hives Verified 11/18/23 08:59 zinc chloride Allergy Mild Unknown Verified 11/18/23 08:59 loratadine Allergy Dyspnea / Verified 11/18/23 08:59 SOB pantoprazole [From Protonix] Allergy Hives Verified 11/18/23 08:59 rizatriptan Allergy Hives Verified 11/18/23 08:59 shrimp Allergy Anaphylaxis Verified 11/18/23 08:59 sumatriptan [From Imitrex] Allergy Hives Verified 11/18/23 08:59 Review of Systems Review of Systems: All systems reviewed & are unremarkable except as noted in HPI and below Constitutional: Constitutional: Reports no additional constitutional complaints Eyes: Eyes: Reports no additional eye complaints ENT: Reports system reviewed and no additional complaints, except as documented Cardiovascular: Cardiovascular: Reports no additional cardiovascular complaints Respiratory: Respiratory: Reports no additional respiratory complaints Gastrointestinal: Gastrointestinal: Reports no additional gastrointestinal complaints Genitourinary: Genitourinary: Reports no additional female genitourinary complaints Musculoskeletal: Musculoskeletal: Reports no additional musculoskeletal complaints Integumentary/Breasts: Skin/Breast: Reports system reviewed and no additional complaints, except as docu Neurologic: Reports system reviewed and no additional complaints, except as documented Psychiatric: Psychiatric: Reports no additional psychiatric complaints Endocrine: Endocrine: Reports no additional endocrine complaints Hematologic/Lymphatic: Hematologic/Lymphatic: Reports no additional hematologic/lymphatic complaints Allergic/Immunologic: Allergic/Immunologic: Reports no additional allergic/immunologic complaints PMFSH Past Medical History Medical History Allergies Anxiety Conjunctivitis Cough COVID-19 Gastritis History of depression History of migraine Recurrent cold sores Sinusitis, acute White matter disease Surgical History Surgical History History of endometrial abla
[2023-11-18] MEDS: KETOROLAC (*BKC) 60 MG/2 ML VIAL IM (09:33)
[2023-11-18] MEDS: PROCHLORPERAZINE EDISYLATE 10 MG/2 ML VIAL IM (09:33)
[2023-11-18 09:54] LABS: Basophils Absolute Auto 0.02 K/mm3 (0.00-0.10); Basophils Percent Auto 0.4 % (0.0-1.0); Eosinophils Absolute Auto 0.14 K/mm3 (0.02-0.50); Eosinophils Percent Auto 2.6 % (1.0-6.0); Hematocrit 38.1 % (35.0-49.0); Hemoglobin 13.1 g/dL (12.0-15.0); Immature Granulocyte Absolute 0.01 K/mm3 (0.00-0.00); Immature Granulocyte Percent A 0.2 % (0.0-0.0); Lymphocytes Absolute Auto 1.44 K/mm3 (1.10-4.50); Lymphocytes Percent Auto 26.8 % (18.0-42.0); Mean Corpuscular HGB Conc 34.4 g/dL (32.0-36.0); Mean Corpuscular Hemoglobin 30.6 pg (27.0-31.0); Mean Platelet Volume 8.4 fl (9.2-11.8); Monocytes Percent Auto 5.6 % (2.0-11.0); Neutrophils Absolute Auto 3.5 K/mm3 (1.7-7.2); Neutrophils Percent Auto 64.4 % (50.0-70.0); Platelet Count Result 238 K/mm3 (150-420); Red Blood Count 4.28 M/mm3 (4.20-5.40); Red Cell Distribution Width 12.4 % (11.6-14.4); White Blood Count 5.4 K/mm3 (4.8-10.8)
[2023-11-18 10:10] LABS: Alanine Aminotransferase 25 U/L (14-59); Albumin Level 3.8 g/dL (3.4-5.0); Alkaline Phosphatase 52 U/L (46-116); Anion Gap 13 mmol/L (8-16); Aspartate Amino Transferase 11 U/L (15-37); Bilirubin,Total 0.3 mg/dL (0.00-1.00); Blood Urea Nitrogen 14 mg/dL (7-18); Carbon Dioxide 23 mmol/L (21-32); Chloride 103 mmol/L (98-108); Estimated CRCL calculation 74 ml/min; Estimated Glomerular Filt Rate > 60; Glucose 103 mg/dL (70-99); Lipase 64 U/L (16-77); Osmolality Calculated 288 mOsm/kg (285-295); Sodium 139 mmol/L (136-145); Total Protein 6.9 g/dL (6.4-8.2)
[2023-11-18 10:15] LABS: Lactic Acid Reflex 1.1 mmol/L (0.4-2.0)
[2023-11-18 10:45] VITALS: BP 116/74; PULSE 59; RESP 18; O2SAT 99
== END 2023-11-18 10:45 | disposition home or self-care (01) ==
PROVIDERS: Emergency Provider Emergency Medicine; PCP Physician Assistant
DX: R10.13 Epigastric pain (principal); R51.9 Headache, unspecified; Z79.899 Other long term (current) drug therapy; Z87.891 Personal history of nicotine dependence
CPT/HCPCS: 36415; 74176; 80053; 81003; 81025; 83605; 83690; 85025; 96372; 99284; J0780; J1885

== ENCOUNTER 2024-02-05 13:07 | Outpatient (NON) | payer OTHER, SELFPAY | END 2024-02-05 13:08 | disposition home or self-care (01) | LOC: ANHGOSHLAB 13:08 | PROVIDERS: PCP Physician Assistant; Visit Provider Otolaryngology | DX: J32.9 Chronic sinusitis, unspecified (principal) | CPT/HCPCS: 87070; 87075; 87205 ==

== ENCOUNTER 2024-02-17 13:40 | Outpatient (CLI) | payer OTHER, SELFPAY ==
--- NOTE | ~2024-02-17 | CT_ITS ---
EXAMINATION: CT sinus wo con DATE: 02/17/2024 14:01 INDICATION: Chronic sinusitis. TECHNIQUE: Computed tomography (CT) of the paranasal sinuses was performed without intravenous contra st. The dose-length product was 386.34 mGy-cm. Automated exposure control and iterative reconstructio n technique were employed. COMPARISON: None FINDINGS: There is extensive mucosal thickening of the maxillary sinuses. There is mild mucosal thick ening of the ethmoid and sphenoid sinuses. Mastoids are pneumatized. Rightward nasal septal deviation . Ostiomeatal units are occluded. IMPRESSION: 1. Advanced sinusitis primarily involving the maxillary sinuses. Reviewed, dictated and finalized at location A.
== END 2024-02-17 13:41 | disposition home or self-care (01) ==
PROVIDERS: PCP Physician Assistant; Visit Provider Otolaryngology
DX: J32.9 Chronic sinusitis, unspecified (principal)
CPT/HCPCS: 70486

== ENCOUNTER 2024-03-24 14:23 | Outpatient (CLI) | payer OTHER, SELFPAY ==
--- NOTE | 2024-03-24 14:44 | ECG_ITS ---
SEE SCANNED COPY FOR CONFIRMED REPORT MTDD
== END 2024-03-24 14:24 | disposition home or self-care (01) ==
LOC: ANHSURGERY 14:27
PROVIDERS: PCP Physician Assistant; Visit Provider Otolaryngology
DX: Z01.818 Encounter for other preprocedural examination (principal); I10 Essential (primary) hypertension
CPT/HCPCS: 93005

== ENCOUNTER 2024-03-30 00:40 | Day surgery (SDC) | payer OTHER, SELFPAY ==
[2024-03-23 13:15] VITALS: BMI 37.8
--- NOTE | 2024-03-23 13:18 | PC.NURSE ---
Report to the Outpatient Waiting Room, entrance under the green pavilion located off [facility], at time _0915_ on date _[id number]_. Planned Procedure Time: _1115_. Time changes happen often and if your time is changed the preop area will call you the afternoon before. - You and your visitor will be asked to self-screen and do not enter if you have any COVID symptoms. - A mask is optional within the hospital at this time. Patients may have clear liquids (water, carbonated beverages, clear teas, apple juice) until 3 hours prior to surgery with a maximum of 20 ounces. - No food from midnight until time of surgery Take the following medications with a SIP of water the morning of surgery: _Propanolol and Sertraline. DO NOT STOP ANY OF YOUR OTHER PRESCRIPTION MEDICATIONS PRIOR TO SURGERY ?EXCEPT THE FOLLOWING Medications to discontinue per physician ____Vitamin B-12 Date to take last appo__[id number] Please no make-up, nail hebrew, hairspray, perfume, deodorant, or body powder the day of surgery. No jewelry (including any body piercings) or valuables the day of surgery, leave them at home. Please take a shower or bath the night before, or the morning of, surgery with an antibacterial soap. Wear comfortable, loose fitting clothing. - Jewelry must be removed prior to entering the operating room. Rings and piercings that are not removed may be cut off. - The hospital will not accept responsibility for valuables. - Please leave all valuables, including medications, at home the day of surgery. If you are going home after surgery, a licensed line haul driver must drive you home. - NO public transportation without another adult if you receive anesthesia. - We recommend that an adult stay with you for 24 hours following discharge. - We also recommend that you do not drive, make important decision, drink alcoholic beverages, or take any drugs that were not prescribed by your health care provider for at least 24 hours after your discharge time. Follow any additional instructions given to you from your surgeon. If you or anyone in your household have experienced Covid symptoms in the past week, please notify your surgeon or the nurse liaison at the phone number below for possible testing. Telephone instructions given to _Chastity___and asked if any additional questions and then verbalized understanding. Patient advised to call surgeon office or pre surgery nurse liaison [phone] if any additional questions.
--- NOTE | 2024-03-29 18:05 | PM.IMHP ---
H&P: HPI History of Present Illness Date/Time: 03/29/24 18:05 Chief Complaint: septal deviation chronic sinusitis recurrent sinusitis Narrative: planned procedure Review of Systems Review of Systems: All systems reviewed & are unremarkable except as noted in HPI and below [facility] Past Medical History Medical History Allergies Anxiety Conjunctivitis Cough COVID-19 Gastritis History of depression History of migraine Recurrent cold sores Sinusitis, acute White matter disease Surgical History Surgical History History of endometrial ablation Hx of tonsillectomy Family History Family History Grandparent Diabetes mellitus Heart problem Cerebrovascular accident Father Lymphoma Alcoholism Cancer Sibling Hypertension Depression Mother Heart problem Hypertension Social History Social History Smoking packs per day: 2 Smoking cigarettes per day: 40.0 Smoking status: Former smoker Tobacco type: cigarettes Second hand tobacco smoke exposure: No Smoking end date: 03/23/18 Alcohol intake: former Substance use: former Lack of Transportation: No Lack of Food: Never True Concerned About Future Housing: No Difficulty Paying Gas/Electric Bills: No Difficulty Paying for Meds: No Currently Unemployed: YES Education: High School Diploma/GED Difficulty w/ Childcare or Family Care: No Living arrangements: with family Occupation/Education: occupation Gender identity (if verbalized by the patient): Female Spiritual care concerns: No Meds Home Medications and Allergies Home Medications Medication Instructions Recorded Confirmed Type propranolol 10 mg tablet 10 mg PO Q12H #60 tabs 09/04/23 03/23/24 Rx galcanezumab-gnlm 120 mg/mL 120 mg subcut WEEKLY 11/05/23 03/23/24 History subcutaneous pen injector (Emgality Pen) cyanocobalamin (vitamin B-12) 100 100 mcg PO DAILY 03/23/24 03/23/24 History mcg tablet (Vitamin B-12) sertraline 25 mg tablet 25 mg PO DAILY 03/23/24 03/23/24 History sertraline 50 mg tablet 50 mg PO DAILY 03/23/24 03/23/24 History cephalexin 500 mg capsule 500 mg PO Q12H #20 caps 03/26/24 03/26/24 Rx Allergies Allergy/AdvReac Type Severity Reaction Status Date / Time amoxicillin Allergy Severe Anaphylaxis Verified 03/23/24 13:05 cinnamon Allergy Severe Anaphylaxis Verified 03/23/24 13:05 clavulanic acid Allergy Severe Anaphylaxis Verified 03/23/24 13:05 morphine Allergy Severe Anaphylaxis Verified 03/23/24 13:05 Penicillins Allergy Severe Anaphylaxis Verified 03/23/24 13:05 codeine Allergy Mild RASH Verified 03/23/24 13:05 latex Allergy Mild Rash Verified 03/23/24 13:05 omeprazole Allergy Mild Vomiting Verified 03/23/24 13:05 propoxyphene Allergy Mild Hives Verified 03/23/24 13:05 zinc chloride Allergy Mild Unknown Verified 03/23/24 13:05 loratadine Allergy Dyspnea / Verified 03/23/24 13:05 SOB pantoprazole [From Protonix] Allergy Hives Verified 03/23/24 13:05 rizatriptan Allergy Hives Verified 03/23/24 13:05 shrimp Allergy Anaphylaxis Verified 03/23/24 13:05 sumatriptan [From Imitrex] Allergy Hives Verified 03/23/24 13:05 augmentim Allergy Mild unk Uncoded 03/23/24 13:05 Exam Narrative: septal deviation chronic appearing sinuses Assessment and Plan Assessment and plan (1) Hypertrophy of both inferior nasal turbinates: Code(s): J34.3 - Hypertrophy of nasal turbinates Status: Acute Assessment and Plan: plan OR septoplasty endoscopic assisted bilateral image guided maxillary antrostomies anterior ethmoidectomies left-sided total ethmoidectomy left-sided possible sphenoidotomy will discuss with patient risks discussed bleeding infection damage to surrounding structures
[2024-03-30] VITALS (10 sets, daily range): BP systolic 101–152; BP diastolic 55–84; PULSE 57–74; RESP 12–20; TEMP 36.1–36.6; O2SAT 97–100
--- NOTE | 2024-03-30 07:18 | WPDHPUPDATE1 ---
History and Physical Update Update Date/Time: 03/30/24 07:18 History and Physical has been reviewed, including an updated exam of the patient. There are NO changes in the patient's condition. Risks, benefits, and alternatives have been discussed and questions answered. Patient agrees to proceed with procedure.
[2024-03-30] MEDS: LACTATED RINGERS 1,000 ML 30 ML IV CONT ×2 (09:32→15:45)
--- NOTE | 2024-03-30 11:25 | WPDANESEPPF ---
Anes - Initial Pre Proc Eval Procedure: Operation Date: 03/30/24 11:30 Proposed Procedures p Image Guided Endoscopic Bilateral Maxillary Anstrostomy, Right Sided Anterior Ethmoidectomy, Left Sided Total Ethmoidectomy, Left Sided Sphenoidotomy, Bilateral Inferior Turbinate Reduction with Outfracture - Xavier Reeder MD s Endoscopic Assisted Septoplasty - Xavier Reeder MD Date/Time: 03/30/24 11:25 Surgeon: Xavier Reeder MD Pre Op Diagnosis: Chr Sinusitits, Septal Dev Patient Data Age: 43 Gender: F Height: 1.63 m Weight: 95.4 kg Last Vital Signs Temp 97.9 F 03/30/24 09:15 Pulse 58 L 03/30/24 09:15 Resp 20 03/30/24 09:15 BP 135/84 03/30/24 09:15 Pulse Ox 99 03/30/24 09:15 O2 Del Method Room Air 03/30/24 09:15 Allergies Allergy/AdvReac Type Severity Reaction Status Date / Time amoxicillin Allergy Severe Anaphylaxis Verified 03/30/24 09:23 cinnamon Allergy Severe Anaphylaxis Verified 03/30/24 09:23 clavulanic acid Allergy Severe Anaphylaxis Verified 03/30/24 09:23 morphine Allergy Severe Anaphylaxis Verified 03/30/24 09:23 Penicillins Allergy Severe Anaphylaxis Verified 03/30/24 09:23 codeine Allergy Mild RASH Verified 03/30/24 09:23 latex Allergy Mild Rash Verified 03/30/24 09:23 propoxyphene Allergy Mild Hives Verified 03/30/24 09:23 zinc chloride Allergy Mild Unknown Verified 03/30/24 09:23 loratadine Allergy Dyspnea / Verified 03/30/24 09:23 SOB pantoprazole [From Protonix] Allergy Hives Verified 03/30/24 09:23 rizatriptan Allergy Hives Verified 03/30/24 09:23 shrimp Allergy Anaphylaxis Verified 03/30/24 09:23 sumatriptan [From Imitrex] Allergy Hives Verified 03/30/24 09:23 omeprazole AdvReac Mild Vomiting Verified 03/30/24 09:23 Home Medications Medication Instructions Recorded Confirmed Type propranolol 10 mg tablet 10 mg PO Q12H #60 tabs 09/04/23 03/30/24 Rx galcanezumab-gnlm 120 mg/mL 120 mg subcut WEEKLY 11/05/23 03/30/24 History subcutaneous pen injector (Emgality Pen) cyanocobalamin (vitamin B-12) 100 100 mcg PO DAILY 03/23/24 03/30/24 History mcg tablet (Vitamin B-12) sertraline 25 mg tablet 25 mg PO DAILY 03/23/24 03/30/24 History sertraline 50 mg tablet 50 mg PO DAILY 03/23/24 03/30/24 History cephalexin 500 mg capsule 500 mg PO Q12H #20 caps 03/26/24 03/26/24 Rx Patient hx anesthesia problems: none Family hx anesthesia problems: none Results Review: All pre-operative results and documents have been reviewed as part of the pre-operative evaluation. [facility] Past Medical History Medical History Allergies Anxiety Conjunctivitis Cough COVID-19 Gastritis History of depression History of migraine Recurrent cold sores Sinusitis, acute White matter disease Surgical History Surgical History History of endometrial ablation Hx of tonsillectomy Family History Family History Grandparent Diabetes mellitus Heart problem Cerebrovascular accident Father Lymphoma Alcoholism Cancer Sibling Hypertension Depression Mother Heart problem Hypertension Social History Social History Smoking packs per day: 2 Smoking cigarettes per day: 40.0 Smoking status: Former smoker Tobacco type: cigarettes Second hand tobacco smoke exposure: No Smoking end date: 03/23/18 Alcohol intake: former Substance use: former Lack of Transportation: No Lack of Food: Never True Concerned About Future Housing: No Difficulty Paying Gas/Electric Bills: No Difficulty Paying for Meds: No Currently Unemployed: YES Education: High School Diploma/GED Difficulty w/ Childcare or Family Care: No Living arrangements: with family Occupation/Education: occupation Gender identity (if verbalized by
[2024-03-30] MEDS: ACETAMINOPHEN 500 MG TABLET 1000 MG PO (11:45)
[2024-03-30] MEDS: OXYMETAZOLINE HCL 0.05% NAS 15 ML BTL (*BKC) 1 SPRAY NASAL (13:40)
[2024-03-30] MEDS: LIDO 1%/EPINEPHRINE 1:100,000 50 ML VIAL INFILTRATE (13:40)
[2024-03-30] MEDS: fentaNYL CITRATE INJ (*CRX) 100 MCG/2 ML VIAL 25 MCG IV PUSH ×4 (16:08→16:22)
--- NOTE | 2024-03-30 16:19 | W.PM.PROC2 ---
Procedure Note - Detailed Date of Procedure 03/30/24 Pre-op Diagnosis Chr Sinusitits, Septal Dev Post-op Diagnosis Same Procedure Performed right-sided image guided endoscopic maxillary antrostomy ,anterior ethmoidectomy, left-sided image guided endoscopic maxillary antrostomy, total ethmoidectomy, sphenoidotomy, endoscopic assisted septoplasty Surgeon Xavier Reeder MD Anesthesia General Indications see above Findings moderately deviated right septum obstructing the middle meatus right-sided looked okay no purulence today likely left-sided severe edematous tissue in all the aforementioned sinuses not severe moderate and copious amounts of thick inspissated mucus in the sphenoid. No complications. Description of Procedure Patient identified consent verified preop. Patient brought to the operating room. Time-out performed. General anesthesia induced endotracheal tube secured. Patient prepped draped position procedure confirmed 2nd time-out performed. Image guidance initiated and confirmed. Afrin-soaked pledgets placed for 5 minutes then removed. 0 degree scope utilized. Right septal deviation. Total 15 cc injected in the bilateral nasal septum. [place] incision made left side left nasal septal flap elevated. Osteotome utilized to cross the septum. Right nasal septal flap elevated. Deviated septum removed Maria R forceps Juan Casper forceps and osteotome. Minimal if any bleeding. Septum irrigated out closed with 5 for interrupted 5 0 fast gut sutures the [place] incision that is. Middle turbinates medialized with [place] maxillary antrostomies performed with double ball tip probe image guidance backbiter straight through cut microdebrider 30 degree scope utilized ensure that the surgical os connected to the natural os. Total anterior ethmoidectomy the right performed [place] image guidance microdebrider. Great care taken to not injure the septum nor orbit or skull base. Left-sided total ethmoidectomy performed under image guidance with [place] microdebrider straight through cut. Great care was taken to not injure the orbit or skull base or septum. Sphenoidotomy identified with image guidance the sphenoid os. [place] utilized to located as well. Sphenoid punch and [place] utilized open the sphenoid sinus widely. Great care taken not injure the optic nerve carotid artery or posterior septal artery. Very thick mucus was there. All the sinus on the left side had xdaw-hm-xvyorbbs swollen tissue. Both sides copiously irrigated out. The non shellfish based packing placed bilaterally a small amount. Zayas splints placed sutured anteriorly with mattress nylon suture. Total blood loss 25 cc. I performed all dictated portions of procedure. No complications. Care the patient given back to Anesthesiology. Patient taken to PACU. Estimated Blood Loss 25 Drains No Packing Yes Pathology None sent Complications No immediate complications Condition Stable Disposition PACU [facility] Billing Surgery - Charge Forward: Surgery Billing
[2024-03-30] MEDS: ONDANSETRON INJ 4 MG/2 ML VIAL IV PUSH (16:25)
--- NOTE | 2024-03-30 17:02 | ECG_ITS ---
SEE SCANNED COPY FOR CONFIRMED REPORT MTDD
[2024-03-30] MEDS: traMADol HCL (*CRX) 50 MG TABLET PO ×2 (17:09→17:34)
== END 2024-03-30 17:45 | disposition home or self-care (01) ==
PROVIDERS: PCP Physician Assistant; Visit Provider Otolaryngology
PROC: (CPT 31256; principal; 2024-03-30 11:30)
PROC: (CPT 30520; 2024-03-30 11:30)
DX: J32.9 Chronic sinusitis, unspecified (principal); J34.3 Hypertrophy of nasal turbinates; J34.2 Deviated nasal septum; F32.A Depression, unspecified; F41.9 Anxiety disorder, unspecified; Z87.891 Personal history of nicotine dependence; E66.9 Obesity, unspecified; Z68.36 Body mass index [BMI] 36.0-36.9, adult
CPT/HCPCS: 31256; 31254; 31257; 30520; 61782; 93005; A9270; J1100; J1596; J2250; J2405; J2704; J3010; J3260; J7050; J7120

== ENCOUNTER 2024-12-22 20:07 | Emergency (ER) | payer OTHER, SELFPAY ==
--- NOTE | ~2024-12-22 | XR_ITS ---
HISTORY: left lateral neck pain COMPARISON: None TECHNIQUE: 2 views of the cervical spine were performed FINDINGS: Visualization of the cervical spine to the inferior endplate of C7. Normal curvature of the cervical spine is identified. No prevertebral soft tissue swelling is appreciated. Trace degenerative disease is identified at the level of C5/C6 with osteophyte formation and disc spa ce narrowing. No acute compression fracture is noted. The dens is equidistant between the pillars, without asymmetry. Air column within the trachea is midline. The visualized portions of the bilateral upper lung cisneros are unremarkable. IMPRESSION: Trace degenerative disease, without acute compression fracture. Reviewed, dictated and finalized at location A. GER FIBER
--- NOTE | ~2024-12-22 | XR_ITS ---
HISTORY: shoulder pain COMPARISON: None. Reference is made to a plain film evaluation of the chest dated 11/06/2022 TECHNIQUE: 2 views of the left shoulder were performed. FINDINGS: No acute fracture. The glenohumeral and acromioclavicular joint space is maintained The visualized portion of the adjacent left lung is clear. The humeral head is well seated within the glenoid fossa. 5 mm (likely) bone island within the acetabulum, unchanged dating back to 2021. IMPRESSION: No acute fracture or anterior dislocation. Reviewed, dictated and finalized at location A. DENTIAL SALES REP
[2024-12-22 20:08] VITALS: BP 152/93; PULSE 80; RESP 18; TEMP 36.4; O2SAT 100
--- OUTSIDE RECORDS SUMMARY | 2024-12-22 20:09 | XMS_ITS | Encounter Summary ---
Author Organization [facility] Address [address] [place] [address] Care Team Providers Care Residential Living Assistant Name Role Phone George Doe Primary Care Provider [phone] Encounter Details Date Type Department Care Team ([facility] Contact Info) Description 08/10/2014 Orders Only [facility] [place] Health Information Management [address] [place] [address] Scanning, Provider Social History Tobacco Use Types Packs/Day Years Used Date Smoking Tobacco: Never Assessed Comments Unknown Sex and Gender Information Value Date Recorded Sex Assigned at Not on file 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 Gender Identity Not on file Sexual Orientation Not on file documented as of this encounter Plan of Treatment Not on file documented as of this encounter Procedures Procedure Name Priority Date/Time Associated Diagnosis Comments GI - RESULT 08/10/2014 SCAN - PATHOLOGY 08/10/2014 documented in this encounter Results * SCAN - PATHOLOGY (08/10/2014) us Provider Scanning Final Result * GI - RESULT (08/10/2014) Anatomical Region Laterality Modality Other us Provider Scanning Final Result documented in this encounter Visit Diagnoses Not on filedocumented in this encounter Care Teams Residential Living Assistant Relationship Specialty Start Date End Date George Doe PA [address] [place] [address] PCP - General 04/15/18 documented as of this encounter
--- NOTE | 2024-12-22 20:10 | ED.UPPEXIN ---
HPI - Extremity Injury (Upper) General Chief Complaint: Extremity Injury, Upper Stated Complaint: shoulder pain Time Seen by Provider: 12/22/24 20:10 Source: patient Mode of arrival: ambulatory Limitations: no limitations History of Present Illness HPI narrative: 44-year-old female with a history of migraine, sinusitis missed a step and fell on a door post. She sustained injuries over the left shoulder. Head injury. No loss of consciousness. She presents to the ED with 2 day history of -- left suprascapular pain -- left shoulder pain which is worse on movement. MD complaint: injury to: left and shoulder Onset (ago): day(s) ( Two days) Handedness: right Place: home Severity: moderate Relieving factors: immobilization Exacerbating factors: movement of extremity Context: direct blow Associated symptoms: denies other symptoms Related Data Home Medications ?Medication ?Instructions ?Recorded ?Confirmed ?Last Taken ?Type galcanezumab-gnlm 120 mg/mL 120 mg subcut WEEKLY 11/05/23 04/12/24 Unknown History subcutaneous pen injector (Emgality Pen) cyanocobalamin (vitamin B-12) 100 100 mcg PO DAILY 03/23/24 04/12/24 Unknown History mcg tablet (Vitamin B-12) sertraline 25 mg tablet 25 mg PO DAILY 03/23/24 04/12/24 03/30/24 History sertraline 50 mg tablet 50 mg PO DAILY 03/23/24 04/12/24 03/30/24 History Allergies Allergy/AdvReac Type Severity Reaction Status Date / Time amoxicillin Allergy Severe Anaphylaxis Verified 04/12/24 09:37 cinnamon Allergy Severe Anaphylaxis Verified 04/12/24 09:37 clavulanic acid Allergy Severe Anaphylaxis Verified 04/12/24 09:37 morphine Allergy Severe Anaphylaxis Verified 04/12/24 09:37 Penicillins Allergy Severe Anaphylaxis Verified 04/12/24 09:37 codeine Allergy Mild RASH Verified 04/12/24 09:37 latex Allergy Mild Rash Verified 04/12/24 09:37 propoxyphene Allergy Mild Hives Verified 04/12/24 09:37 zinc chloride Allergy Mild Unknown Verified 04/12/24 09:37 loratadine Allergy Dyspnea / Verified 04/12/24 09:37 SOB pantoprazole (From Protonix) Allergy Hives Verified 04/12/24 09:37 rizatriptan Allergy Hives Verified 04/12/24 09:37 shrimp Allergy Anaphylaxis Verified 04/12/24 09:37 sumatriptan (From Imitrex) Allergy Hives Verified 04/12/24 09:37 omeprazole AdvReac Mild Vomiting Verified 04/12/24 09:37 Review of Systems Review of Systems: All systems reviewed & are unremarkable except as noted in HPI and below PMFSH Past Medical History Medical History Sinusitis, acute Recurrent cold sores White matter disease Allergies Cough Conjunctivitis Gastritis COVID-19 Anxiety History of depression History of migraine Surgical History Surgical History History of endometrial ablation Hx of tonsillectomy Family History Family History Grandparent Diabetes mellitus Heart problem Cerebrovascular accident Father Lymphoma Alcoholism Cancer Sibling Hypertension Depression Mother Heart problem Hypertension Social History Social History Smoking packs per day: 2 Smoking cigarettes per day: 40.0 Smoking status: Former smoker Tobacco type: cigarettes Second hand tobacco smoke exposure: No Smoking end date: 03/23/18 Alcohol intake: former Substance use: former Lack of Transportation: No Lack of Food: Never True Concerned About Future Housing: No Difficulty Paying Gas/Electric Bills: No Difficulty Paying for Meds: No Currently Unemployed: YES Education: High School Diploma/GED Difficulty w/ Childcare or Family Care: No Living arrangements: with family Occupation/Education: occupation Gender identity (if verbalized by the patient): Female Spiritual care concerns: No Exam Narrative: blood pressure is 152/93 Const: General: no acute distress Orientation/consciousness: patient oriented x3 Limitations: no limitations HENMT: Head: normal to inspection Ears: external ears normal Face/Nose/Sinus: Normal external nose present Face and sinus: normal facial exam Mouth: Yes Normal oral and palatal mucosa present Throat: posterior oropharynx normal Eyes: Conjunctivae: conjunctivae normal Pupils: Equal, round and reactive pupils present EOM: EOMs intact bilaterally Direct Ophthalmoscopy: no photophobia Neck: Neck: normal visual inspection, no lymphadenopathy and no meningeal signs Other: tenderness over the left lateral neck muscles extending over suprascapular aden Chest: Chest palpation & inspection: normal inspection of the chest Cardio: Rate: regular rate Rhythm: regular rhythm GI: GI Palp: Yes Soft to palpation Auscultation: normal bowel sounds Other: no tenderness/rigidity/ rebound. : General: Yes no CVA tenderness Back/Spine/Pelvis: Back: no CVA tenderness Skin: General skin exam: normal color Rashes: no rashes Wounds: no wounds Neuro: General: patient oriented x3, moves all extremities, no meningeal signs, no focal motor deficits and CN's II-XI intact bilaterally Extrem: Other: Left shoulder-- no tenderness on palpation. Decreased range of motion. Psych: Mental Status: mental status grossly normal Affect: normal affect Attitude: cooperative Course Course Emergency Course: accidental fall left shoulder pain -- x-ray did not show any fracture/ dislocation. left suprascapular pain-- X-ray of the C-spine did not show any acute findings Vital Signs Vital signs: Vital Signs Temperature 36.4 C 12/22/24 20:08 Pulse Rate 80 12/22/24 20:08 Respiratory Rate 18 12/22/24 20:08 Blood Pressure 152/93 H 12/22/24 20:08 Pulse Oximetry 100 12/22/24 20:08 Oxygen Delivery Room Air 12/22/24 20:08 Temperature 36.4 C 12/22/24 20:08 Pulse Rate 80 12/22/24 20:08 Respiratory Rate 18 12/22/24 20:08 Blood Pressure 152/93 H 12/22/24 20:08 Pulse Oximetry 100 12/22/24 20:08 Oxygen Delivery Room Air 12/22/24 20:08 MDM - Extremity Injury (Upper) MDM Narrative Medical decision making narrative: left shoulder pain accidental fall Differential Diagnosis Differential diagnosis: Likely dislocation of shoulder Lab Data Attestation: I reviewed the patient's lab results. Discharge Plan Discharge Clinical Impression: Accidental fall Qualifiers: Encounter type: initial encounter Qualified Code(s): W19.XXXA - Unspecified fall, initial encounter Acute shoulder pain due to trauma Qualifiers: Laterality: left Qualified Code(s): M25.512 - Pain in left shoulder Patient Disposition: Home, Self-Care Condition: Stable Instructions: Antibiotic Form, Shoulder Pain (ED) Patient Language: Maltese Prescriptions: New diclofenac sodium 50 mg tablet,delayed release (DR/EC) 50 mg PO TID PRN (Reason: pain) Qty: 30 0RF No Action Emgality Pen 120 mg/mL pen injector 120 mg SUBCUT WEEKLY sertraline 25 mg tablet 25 mg PO DAILY sertraline 50 mg tablet 50 mg PO DAILY cyanocobalamin (vitamin B-12) [Vitamin B-12] 100 mcg Tablet 100 mcg PO DAILY propranolol 10 mg tablet 10 mg PO Q12H Qty: 60 2RF Follow-up/Referrals: UNKNOWN,DOCTOR [Non-Staff] - Time of Disposition: 20:50
--- OUTSIDE RECORDS SUMMARY | 2024-12-22 20:10 | XMS_ITS | Encounter Summary ---
Author Organization [facility] Address [address] [place] [address] Care Team Providers Care Position Classification Specialist Name Role Phone George Doe Primary Care Provider [phone] Encounter Details Date Type Department Care Team (Late st Contact Info) Description 06/04/2014 Orders Only [facility] [place] Management [address] [place] [address] Scanning, Provider Social History Tobacco Use Types Packs/Day Years Used Date Smoking Tobacco: Never Assessed Comments Unknown Sex and Gender Information Value Date Recorded Sex Assigned at Not on file 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 Gender Identity Not on file Sexual Orientation Not on file documented as of this encounter Plan of Treatment Not on file documented as of this encounter Procedures Procedure Name Priority Date/Time Associated Diagnosis Comments SCAN - RADIOLOGY/IMAGING 06/04/2014 documented in this encounter Results * SCAN - RADIOLOGY/IMAGING (06/04/2014) Anatomical Region Laterality Modality Other us Provider Scanning Final Result documented in this encounter Visit Diagnoses Not on filedocumented in this encounter Care Teams Position Classification Specialist Relationship Specialty Start Date End Date George Doe PA [address] [place] [address] PCP - General 04/15/18 documented as of this encounter
--- OUTSIDE RECORDS SUMMARY | 2024-12-22 20:10 | XMS_ITS | Encounter Summary ---
Author Organization [facility] Address [address] [place] [address] Phone Care Team Providers Care Audio Visual Equipment Rental Clerk Name Role Phone Stef Pickard DO Primary Care Provider George Doe Primary Care Provider Arabella Ashley APRN, BALL MILL MIXER Unavailable Ruben Rojo MD Unavailable [phone] Reason for Visit * Reason Comments Medication Refill Encounter Details Date Type Department Care Team (Late st Contact Info) Description 09/27/2023 Refill [facility] - Neurology [facility] [address] [place] [id number] Arabella Ashley APRN, BALL MILL MIXER [address] [place] [address] Medication Refill Social History Tobacco Use Types Packs/Day Years Used Date Smoking Tobacco: Former Cigarettes 0.5 19 Smokeless Tobacco: Never Alcohol Use Standard Drinks/Week Comments No 0 (1 standard drink = 0.6 oz pur e alcohol) Comments No Sex and Gender Information Value Date Recorded Sex Assigned at Not on file Legal Sex Female 7:31 PM CDT Gender Identity Not on file Sexual Orientation Not on file documented as of this encounter Plan of Treatment Upcoming Encounters Date Type Department Care Team (Late st Contact Info) Description 01/25/2025 11:30 AM CDT Telemedicine [facility] - Neurology - [place] [address] [place] [address] Arabella Ashley APRN, BALL MILL MIXER [address] [place] [address] documented as of this encounter Visit Diagnoses Diagnosis Chronic migraine without aura, intractable, without status migrainosus documented in this encounter Care Teams Audio Visual Equipment Rental Clerk Relationship Specialty Start Date End Date Stef Pickard DO [address] [place] [address] PCP - General Internal Medicine 01/29/23 11/26/23 George Doe [facility] [address] [place] [address] PCP - General Physician Tufting Machine Operator 11/27/23 Arabella Ashley APRN, BALL MILL MIXER [address] [place] [address] Nurse Practitioner Advanced Practice Nurse 01/29/23 Ruben Rojo MD [address] [place] [address] Consulting Physician Neurology 02/21/23 documented as of this encounter
--- OUTSIDE RECORDS SUMMARY | 2024-12-22 20:10 | XMS_ITS | Clinical Summary ---
Author Organization [facility] Address [address] [facility] [place] [address] Phone Care Team Providers Care Product Development Specialist Name Role Phone George Doe Primary Care Provider [phone] Arabella Ashley APRN, TIMBER REPAIRER Unavailable [phone] Ruben Rojo MD Unavailable [phone] Allergies Active Allergy Reactions Criticality Noted Date Comments Amoxicillin Unknown 10/28/2018 Ampicillin Unknown 10/28/2018 Azithromycin Unknown 10/28/2018 Bupropion Unknown 10/28/2018 Codeine Hives 11/11/2018 Haloperidol Unknown 10/28/2018 Latex Unknown 10/28/2018 Omeprazole Unknown 10/28/2018 Ranitidine Unknown 10/28/2018 Sulfa Antibiotics Unknown 10/28/2018 Sumatriptan Rash 01/29/2023 Ubrogepant Swelling 03/31/2023 Vancomycin Unknown 10/28/2018 Medications sertraline (ZOLOFT) 50 MG Tablet Take 50 mg by mouth daily. 75mg Active Cyanocobalamin (B-12) 1000 MCG CapsuleIndicati ons:Low serum vitamin B12 Take 1 Capsule by mouth daily. 90 Capsule 1 3 Active propranolol (INDERAL) 10 MG Tablet Take 10 mg by mouth in the morning and at bedtime. Active Galcanezumab-gn lm (Emgality) 120 MG/ML Solution Auto-injectorIn dications:Chron ic migraine without aura, intractable, without status migrainosus 1 mL by Subcutaneous route every 28 days. 1 mL 3 4 Active Active Problems Problem Noted Date Diagnosed Date Migraine without aura and wi th status migrainosus, not intractable 12/18/2018 Encounters Date Type Department Care Team Description 10/14/2024 11:30 AM STUD DRIVER Telemedicine [facility] [address] [place] [address] Arabella Ashley M, MEDIEVAL ENGLISH LITERATURE PROFESSOR, TIMBER REPAIRER Chronic migraine without aura, intractable, without status migrainosus 10/14/2024 Travel from Last 3 Months Family History Medical History Relation Name Comments Alcohol Abuse Father Bipolar Disorder Father Other-comment Father malignant neop lastic disease Heart Disease Mother Hypertension Mother Depression Sister Hypertension Sister Relation Name Status Comments Father Mother Sister Social History Tobacco Use Types Packs/Day Years Used Date Smoking Tobacco: Former Cigarettes 0.5 19 Smokeless Tobacco: Never Tobacco Cessation:Counseling Given: Not Answered Alcohol Use Standard Drinks/Week Comments No 0 (1 standard drink = 0.6 oz pur e alcohol) Comments No Sex and Gender Information Value Date Recorded Sex Assigned at Not on file Legal Sex Female 7:31 PM CDT Gender Identity Not on file Sexual Orientation Not on file Last Filed Vital Signs Vital Sign Reading Time Taken Comments Blood Pressure 120/70 03/23/2024 1:17 PM CDT Pulse 63 03/23/2024 1:17 PM CDT Temperature 36.9 C (98.4 F) 03/23/2024 1:17 PM CDT Respiratory Rate 16 03/23/2024 1:17 PM CDT Oxygen Saturation 98% 03/23/2024 1:17 PM CDT Inhaled Oxygen Concentration - - Weight 96.6 kg (213 lb) 03/23/2024 1:17 PM CDT Height 162.6 cm (5' 4 ) 03/23/2024 1:17 PM CDT Body Mass Index 36.56 03/23/2024 1:17 PM CDT Plan of Treatment Upcoming Encounters Date Type Department Care Team (Late st Contact Info) Description 01/25/2025 11:30 AM CDT Telemedicine [facility] [address] [place] [address] Arabella Ashley APRN, TIMBER REPAIRER [address] [place] [address] Health Maintenance Due Date Last Done Comments Hepatitis C Virus (HCV) Screening 1982 TdaP Immunization 1982 Hepatitis B Immunization (1 of 3 - 19+ 3-dose series) 2001 Pap Smear 2003 Cervical Cancer Screening (CCS) 2012 HPV/Cotest 2012 Discussion re Starting/Frequency of Mammograms 2022 Influenza Immunization (#1) 2024 SARS-COV-2 Immunization (2023- season) 2024 10/26/2021, 05/21/2021 Respiratory Syncytial Virus (RSV) Immunization (Adult) (1 - 1-dose 75+ series) 2057 DTaP/Tdap/Td Immunization Discontinued 06/23/1997 Meningococcal Immunization (ACWY) Aged Out No longer eligible based on patient's age to complete this topic Pneumococcal Immunization Combined Aged Out No longer eligible based on patient's age to complete this topic Rotavirus Immunization Aged Out No lo nger eligible based on patient's age to complete this topic Insurance MEDICAID [employer] Care Teams Product Development Specialist Relationship Specialty Start Date End Date George Doe PAC [address] [place] [address] PCP - General Physician Dry Sand Molder 11/27/23 Arabella Ashley APRN, TIMBER REPAIRER [address] [place] [address] Nurse Practitioner Advanced Practice Nurse 01/29/23 Ruben Rojo MD [address] [place] [address] Consulting Physician Neurology 02/21/23
--- OUTSIDE RECORDS SUMMARY | 2024-12-22 20:10 | XMS_ITS | Referral Summary ---
Author Organization [facility] Address [address] [place] [address] Care Team Providers Care Barrel Cooper Name Role Phone George Doe Primary Care Provider [phone] Allergies Active Allergy Reactions Criticality Noted Date Comments Amoxicillin Amoxicillin-Pot Clavulanate Amoxicillin-Pot Clavulanate Hives Medium 04/15/20 18 Cinnamon Angioedema High 04/15/2018 Codeine Hives Medium 04/15/2018 Fish Containing Products Angioedema High 04/15/2018 Latex Omeprazole Omeprazole Hives Medium 04/15/2018 Penicillins Penicillins Hives Medium 04/15/2018 Shrimp Angioedema High 04/15/2018 Medications sucralfate (CARAFATE) 1 gram tablet Take 1 g by mouth daily Active sertraline (ZOLOFT) 100 mg tablet Take 100 mg by mouth daily. Active Active Problems Problem Noted Date Diagnosed Date Epigastric pain 07/03/2022 Overview (07/03/2022): Added automatically from request for surgery [id number] Palpitations 11/26/2019 History of gastrointestinal ulcer 11/26/2019 Environmental and seasonal allergies 11/26/2019 SOB (shortness of breath) 11/26/2019 Social History Tobacco Use Types Packs/Day Years Used Date Smoking Tobacco: Former Cigarettes Q uit: 11/26/2014 Smokeless Tobacco: Never Alcohol Use Standard Drinks/Week Comments No 0 (1 standard drink = 0.6 oz pur e alcohol) Comments No Sex and Gender Information Value Date Recorded Sex Assigned at Not on file 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 Gender Identity Not on file Sexual Orientation Not on file Last Filed Vital Signs Vital Sign Reading Time Taken Comments Blood Pressure 110/70 07/03/2022 10:18 AM CDT Pulse 61 07/03/2022 10:18 AM CDT Temperature 37.3 C (99.1 F) 04/15/2018 8:05 AM CDT Respiratory Rate 18 04/15/2018 8:05 AM CDT Oxygen Saturation 99% 07/03/2022 10:18 AM CDT Inhaled Oxygen Concentration - - Weight 90.7 kg (200 lb) 07/03/2022 10:18 AM CDT Height 160 cm (5' 3 ) 07/03/2022 10:18 AM CDT Body Mass Index 35.43 07/03/2022 10:18 AM CDT Plan of Treatment Not on file Insurance [facility] Care Teams Barrel Cooper Relationship Specialty Start Date End Date George Doe PA [address] [place] [address] PCP - General 04/15/18
--- OUTSIDE RECORDS SUMMARY | 2024-12-22 20:10 | XMS_ITS | Patient Health Summary ---
Author Organization [facility] Address [address] [place] [address] Care Team Providers Care Credit Director Name Role Phone George Doe Primary Care Provider [phone] Note from [facility],non-owned Affiliates and Associated Physician Practices is amultiple site organization consisting of ambulatory clinics and hospital sitesin [place], [place], [place]. This disclosure is being madepursuant to the Care Everywhere program and may not contain all information available regarding this patient. Last updated 18.[facility] Allergies * Amoxicillin(Unknown) * Amoxicillin-Pot Clavulanate(Other) -High Criticality * Azithromycin(Unknown) * Bupropion(Unknown) * Cinnamon(Angioedema,Swelling) -High Criticality * Codeine(Other) -Medium Criticality * Fish(Angioedema) -High Criticality * Fish-Derived Products(Angioedema) -High Criticality * Haloperidol(Unknown) * Latex(Rash,Unknown) -Medium Criticality * Omeprazole(Other,Unknown) -Medium Criticality * Penicillins(Other,Swelling,Unknown) -Medium Criticality * Ranitidine(Unknown) * Shellfish Allergy(Angioedema) -High Criticality * Shrimp Extract Allergy Skin Test(Angioedema) -High Criticality * Sulfa Antibiotics(Unknown) * Sumatriptan(Rash) -Medium Criticality * Ubrogepant(Swelling) * Vancomycin(Unknown) * Contrast-Iodinated Agents For Ct/Other(Itching) -Low Criticality,Inactive Medications * Be aware that medications may not be up to date on this document. Alwaysverify current medications with the patient. * propranolol (Inderal) 10 MG tablet Take 1 (one) tablet by mouth 2 times daily * sertraline (Zoloft) 50 MG tablet Take 1.5 (one and one-half) tablets by mouth once daily * gabapentin (Neurontin) 100 MG capsule(Started 11/24/2023) Take 2 (two) capsules by mouth 2 times daily 4 refills by 11/23/2024 * cyanocobalamin (Vitamin B-12) 500 MCG tablet(Started 11/24/2023) Take 1 (one) tablet by mouth once daily * acetaminophen (Tylenol) 325 MG tablet Take 1 (one) tablet by mouth every 4 hours as needed for Fever or Pain Maximum allowable Acetaminophen amount = 4 Grams (4000 mg) / 24 hours. * Emgality 120 MG/ML auto-injector pen(Started 11/24/2023) Inject 1 mL subcutaneously every 28 days 4 refills by 11/23/2024 * cephalexin (Keflex) 500 MG capsule(Started 01/20/2024) Take 1 (one) capsule by mouth 3 times daily FOR 10 DAYS * Cyanocobalamin 1000 MCG(Started 03/31/2023) Take 1 capsule by mouth once daily * ketorolac (Toradol) 10 MG tablet(Started 09/02/2023) * Aimovig 70 MG/ML auto injector pen(Started 12/22/2022) ADMINISTER 1 ML UNDER THE SKIN MONTHLY * Loratadine (Claritin) 10 MG * sertraline (Zoloft) 25 MG tablet(Started 11/18/2023) * Ubrelvy 100 MG tablet(Started 02/07/2023) Take 1 (one) tablet by mouth once daily as needed For migraine. * traMADol (Ultram) 50 MG tablet(Started 08/18/2023) TAKE 1 TO 2 TABLETS BY MOUTH EVERY 8 HOURS NEEDED FOR PAIN * sucralfate (Carafate) 1 GM tablet Take 1 (one) tablet by mouth once daily Social History Tobacco Use Types Packs/Day Years Used Date Smoking Tobacco: Former Cigarettes Smokeless Tobacco: Never Tobacco Cessation:Counseling Given: No Alcohol Use Standard Drinks/Week Comments Not Currently 0 (1 standard drink = 0.6 oz pur e alcohol) Sex and Gender Information Value Date Recorded Sex Assigned at Not on file Gender Identity Not on file Sexual Orientation Not on file Last Filed Vital Signs Vital Sign Reading Time Taken Comments Blood Pressure 108/68 01/27/2024 10:23 AM CDT Pulse 61 01/27/2024 10:23 AM CDT Temperature 36.7 C (98 F) 01/27/2024 10:23 AM CDT Respiratory Rate - - Oxygen Saturation 98% 01/27/2024 10:23 AM CDT Inhaled Oxygen Concentration - - Weight 100.7 kg (222 lb) 01/27/2024 10:23 AM CDT Height 162.6 cm (5' 4 ) 01/27/2024 10:23 AM CDT Body Mass Index 38.11 01/27/2024 10:23 AM CDT Care Teams Credit Director Relationship Specialty Start Date End Date George Doe PA [address] [place] [address] PCP - General Physician Field Technician 11/24/23
--- OUTSIDE RECORDS SUMMARY | 2024-12-22 20:10 | XMS_ITS | Encounter Summary ---
Author Organization [facility] Address [address] [place] [address] Phone Care Team Providers Care Cold Rolling Coordinator Name Role Phone Stef Pickard DO Primary Care Provider George Doe Primary Care Provider [phone] Arabella Ashley APRN, NATURAL RESOURCES EXTENSION EDUCATOR Unavailable Ruben Rojo MD Unavailable Reason for Visit * Reason Comments Medication Refill Encounter Details Date Type Department Care Team (Late st Contact Info) Description 08/20/2023 Refill [facility] - Neurology [facility] [address] [place] [id number] Arabella Ashley APRN, NATURAL RESOURCES EXTENSION EDUCATOR [address] [place] [address] Medication Refill Social History Tobacco Use Types [...] [facility] - Neurology - [place] [address] [place] [address] Arabella Ashley APRN, NATURAL RESOURCES EXTENSION EDUCATOR [address] [place] [address] documented as of this encounter Visit Diagnoses Diagnosis Chronic migraine without aura, intractable, without status migrainosus documented in this encounter Care Teams Cold Rolling Coordinator Relationship Specialty Start Date End Date Stef Pickard DO [address] [facility] [place] [address] PCP - General Internal Medicine 01/29/23 11/26/23 George Doe [facility] [address] [place] [address] PCP - General Physician Damper Worker 11/27/23 Arabella Ashley APRN, NATURAL RESOURCES EXTENSION EDUCATOR [address] [place] [address] Nurse Practitioner Advanced Practice Nurse 01/29/23 Ruben Rojo MD [address] [place] [address] Consulting Physician Neurology 02/21/23 documented as of this encounter
--- OUTSIDE RECORDS SUMMARY | 2024-12-22 20:10 | XMS_ITS | Referral Summary ---
Author Organization [facility] [employer] Address [address] [place] [address] Care Team Providers Care Mold Machine Operator Name Role Phone George Doe Primary Care Provider [phone] Source Comments [facility] [employer],non-owned Affiliates and Associated Physician Practices is amultiple site organization consisting of ambulatory clinics and hospital sitesin [place], [place], [place] and [place]. This disclosure is being madepursuant to the Care Everywhere program and may not contain all information available regarding this patient. Last updated 18.[facility] [employer] [facility] Allergies Active Allergy Reactions Criticality Noted Date Comments Amoxicillin Unknown 10/28/2018 Amoxicillin-Pot Clavulanate Other High 02/15/20 16 Azithromycin Unknown 10/28/2018 Bupropion Unknown 10/28/2018 Cinnamon Angioedema,Swelling High 04/15/2018 Codeine Other Medium 04/15/2018 Fish Angioedema High 04/15/2018 Fish-Derived Products Angioedema High 04/15/2018 Haloperidol Unknown 10/28/2018 Latex Rash,Unknown Medium 10/28/2018 Omeprazole Other,Unknown Medium 04/15/2018 Penicillins Other,Swelling,Unknown Medium 04/15/2018 Ranitidine Unknown 10/28/2018 Shellfish Allergy Angioedema High 04/15/2018 Shrimp Extract Allergy Skin Test Angioedema High 04/15/2018 Sulfa Antibiotics Unknown 10/28/2018 Sumatriptan Rash Medium 01/29/2023 Ubrogepant Swelling 03/31/2023 Vancomycin Unknown 10/28/2018 Medications * Be aware that medications may not be up to date on this document. Alwaysverify current medications with the patient. Medication Sig Dispensed Refills Start Date End Date Status propranolol (Inderal) 10 MG tablet Take 1 (one) tablet by mouth 2 times daily Active sertraline (Zoloft) 50 MG tablet Take 1.5 (one and one-half) tablets by mouth once daily Active gabapentin (Neurontin) 100 MG capsuleIndicatio ns:Intractable migraine with aura without status migrainosus,Social Services yuliet daily headache Take 2 (two) capsules by mouth 2 times daily 120 capsule 4 11/24/2023 Active Additional Information Patient not taking.Reported on 01/27/2024 cyanocobalamin (Vitamin B-12) 500 MCG tablet Take 1 (one) tablet by mouth once daily 100 tablet 11/24/2023 Active acetaminophen (Tylenol) 325 MG tablet Take 1 (one) tablet by mouth every 4 hours as needed for Fever or Pain Maximum allowable Acetaminophen amount = 4 Grams (4000 mg) / 24 hours. Active Emgality 120 MG/ML auto-injector penIndications:I ntractable migraine with aura without status migrainosus,Visu al changes,Chronic daily headache Inject 1 mL subcutaneously every 28 days 1 mL 4 11/24/2023 Active cephalexin (Keflex) 500 MG capsule Take 1 (one) capsule by mouth 3 times daily FOR 10 DAYS 01/20/2024 Active Cyanocobalamin 1000 MCG Take 1 capsule by mouth once daily 03/31/2023 Active ketorolac (Toradol) 10 MG tablet 09/02/2023 Active Aimovig 70 MG/ML auto injector pen ADMINISTER 1 ML UNDER THE SKIN MONTHLY 12/22/2022 Active Loratadine (Claritin) 10 MG Active sertraline (Zoloft) 25 MG tablet 11/18/2023 Active Ubrelvy 100 MG tablet Take 1 (one) tablet by mouth once daily as needed For migraine. 02/07/2023 Active traMADol (Ultram) 50 MG tablet TAKE 1 TO 2 TABLETS BY MOUTH EVERY 8 HOURS NEEDED FOR PAIN 08/18/2023 Active sucralfate (Carafate) 1 GM tablet Take 1 (one) tablet by mouth once daily Active Social History Tobacco Use Types Packs/Day Years [...] Mass Index 38.11 01/27/2024 10:23 AM CDT Plan of Treatment Not on file Care Teams Mold Machine Operator Relationship Specialty Start Date End Date George Doe PA [address] [place] [address] PCP - General Physician Hand Brush Filler 11/24/23
--- OUTSIDE RECORDS SUMMARY | 2024-12-22 20:10 | XMS_ITS | Clinical Summary ---
Author Organization [facility] [employer] Address [address] [place] [address] Care Team Providers Care Fashion Consultant Sales Name Role Phone George Doe Primary Care Provider [phone] [facility] [employer],non-owned Affiliates and Associated Physician Practices is amultiple site organization consisting of ambulatory clinics and hospital sitesin [place], [place], [place] and [place]. This disclosure is being madepursuant to the Care Everywhere program and may not contain all information available regarding this patient. Last updated 18.[facility] [employer] Allergies Active Allergy Reactions Criticality Noted Date [...] capsuleIndicatio ns:Intractable migraine with aura without status migrainosus,Primary Clinician yuliet daily headache Take 2 (two) capsules [...] (one) tablet by mouth once daily Active Family History Relation Name Status Comments Father Mother Alive Social History Tobacco Use Types Packs/Day Years [...] 01/27/2024 10:23 AM CDT Plan of Treatment Health Maintenance Due Date Last Done Comments LIPID TESTING 1982 MAMMOGRAM 1982 PAP SMEAR 1982 HIV SCREENING 1997 HEPATITIS C SCREENING 07/24/2000 DTAP/TDAP/TD VACCINES (1 - Tdap) 2001 HEPATITIS B VACCINE (1 of 3 - 19+ 3-dose series) 2001 SCREENING FOR DIABETES 11/24/2023 COVID-19 VACCINE (1 - 2023-2 5 season) 2024 INFLUENZA VACCINE (#1) 2024 DEPRESSION SCREENING 11/10/2024 ZOSTER VACCINE (1 of 2) 2032 HIB VACCINE Aged Out No longer eligi ble based on patient's age to complete this topic HPV VACCINE Aged Out No longer eligi ble based on patient's age to complete this topic MENINGOCOCCAL (Group B) VACCINE Aged Out No longer eligible based on patient's age to complete this topic MENINGOCOCCAL VACCINE Aged Out No lashell ir[place] eligible based on patient's age to complete this topic PNEUMOCOCCAL VACCINE Aged Out No long er eligible based on patient's age to complete this topic Care Teams Fashion Consultant Sales Relationship Specialty Start Date End Date George Doe PA [address] [place] [address] PCP - General Physician Garnisher 11/24/23
--- OUTSIDE RECORDS SUMMARY | 2024-12-22 20:10 | XMS_ITS | Clinical Summary ---
Author Organization [facility] Address [address] [place] [address] Care Team Providers Care Sample Prep Technician Name Role Phone George Doe Primary Care Provider Allergies Active Allergy Reactions Criticality Noted Date [...] (07/03/2022): Added automatically from request for surgery [id number] Palpitations 11/26/2019 History of gastrointestinal ulcer 11/26/2019 Environmental and seasonal allergies 11/26/2019 SOB (shortness of breath) 11/26/2019 Family History Medical History Relation Name Comments Hypertension Brother sepsis Father Diabetes Maternal Grandmother Stroke Maternal Grandmother Stroke Paternal Grandmother Relation Name Status Comments Brother Alive Father (Age 45) Maternal Grandmother Mother Alive Paternal Grandmother Social History Tobacco Use Types Packs/Day Years Used Date Smoking Tobacco: Former Cigarettes Q uit: 11/26/2014 Smokeless Tobacco: Never Alcohol Use Standard Drinks/Week Comments No 0 (1 standard drink = 0.6 oz pur e alcohol) Comments No Sex and Gender Information Value Date Recorded Sex Assigned at Not on file Legal Sex Female 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 Gender Identity Not on file Sexual Orientation Not on file Obstetrics History Last Filed Vital Signs Vital Sign Reading [...] 07/03/2022 10:18 AM CDT Plan of Treatment Health Maintenance Due Date Last Done Comments Breast Cancer Screening-Mammogram 1982 Cervical Cancer Screening 1982 Depression Screening 1982 Hepatitis C Screening 1982 Varicella Vaccines (1 of 2 - 13+ 2-dose series) 1995 DTaP/Tdap/Td Vaccine (1 - Tdap) 06/24/1997 7 Hepatitis B Screening 2000 Regular Well Visit/Exam 18-64 2000 Influenza Vaccine (#1) 2024 HPV Vaccines Aged Out No longer eligi ble based on patient's age to complete this topic Pneumococcal vaccine <65 Aged Out No longer eligible based on patient's age to complete this topic Insurance [facility] Care Teams Sample Prep Technician Relationship Specialty Start Date End Date George Doe PA [address] [place] [address] PCP - General 04/15/18
--- OUTSIDE RECORDS SUMMARY | 2024-12-22 20:10 | XMS_ITS | Encounter Summary ---
Author Organization [facility] Address [address] [place] [address] Phone Care Team Providers Care Dampener Operator Name Role Phone Stef Pickard DO Primary Care Provider George Doe Primary Care Provider [phone] Arabella Ashley APRN, PRODUCTION TRUCK DRIVER Unavailable [phone] Ruben Rojo MD Unavailable Reason for Visit * Reason Comments Medication Refill Encounter Details Date Type Department Care Team (Late st Contact Info) Description 09/28/2023 Refill [facility] - Neurology [facility] [address] [place] [id number] Arabella Ashley, [place], PRODUCTION TRUCK DRIVER [address] [place] [address] Medication Refill Social History Tobacco Use Types [...] on file documented as of this encounter Miscellaneous Notes * Telephone Encounter - Mikey, Valarie S, RN - 09/29/2023 8:15 AM CST Medication failed the protocol, provider to review and approve the medication order if appropriate. Requested Prescriptions Pending Prescriptions Disp Refills Emgality 120 MG/ML Solution Auto-injector [Pharmacy Med Name: EMGALITY 120MG/ML AUTO INJECTOR 1ML] 1 mL 3 Sig: ADMINISTER 2 ML UNDER THE SKIN 1 TIME FOR 1 DOSE Not Delegated - Off Protocol Failed - 09/28/2023 1:23 PM Failed - This refill cannot be delegated Passed - Visit with relevant provider in past 12 months or upcoming 90 days Recent Visits Date Type Provider Dept 06/30/23 Office Visit Arabella Ashley APRN, CNS [facility] Neurology [facility] 05/16/23 Procedure Visit Ruben Rojo MD [facility] 03/31/23 Office Visit Arabella Ashley APRN, CNS [facility] 02/21/23 Procedure Visit Ruben Rojo MD [facility] Neurology [facility] 01/29/23 Office Visit Arabella Ashley APRN, CNS [facility] Showing recent visits within past 365 days and meeting all other requirements Future Appointments Date Type Provider Dept 11/27/23 Appointment Arabella Ashley APRN, CNS [facility] Showing future appointments within next 90 days and meeting all other requirements INATION PROCTOR documented in this encounter Plan of Treatment Upcoming Encounters Date Type Department Care Team (Late st Contact Info) Description 01/25/2025 11:30 AM CDT Telemedicine [facility] - Neurology - [place] [address] [place] [address] Arabella Ashley APRN, PRODUCTION TRUCK DRIVER [address] [place] [address] documented as of this encounter Visit Diagnoses Diagnosis Chronic migraine without aura, intractable, without status migrainosus documented in this encounter Care Teams Dampener Operator Relationship Specialty Start Date End Date Stef Pickard DO [address] [place] [address] PCP - General Internal Medicine 01/29/23 11/26/23 George Doe, [facility] [address] [place] [address] PCP - General Physician Infectious Disease Physician 11/27/23 Arabella Ashley APRN, PRODUCTION TRUCK DRIVER [address] [place] [address] Nurse Practitioner Advanced Practice Nurse 01/29/23 Ruben Rojo MD [address] [place] [address] Consulting Physician Neurology 02/21/23 documented as of this encounter
--- OUTSIDE RECORDS SUMMARY | 2024-12-22 20:10 | XMS_ITS | Data Portability ---
Author Organization [place] [facility], Main Office Address [address] [place] [address] Assessment No assessment recorded. Plan of Treatment Reminders Order Date Submit Date Provider Last Modified By Organization Details Last Modified Time Details Appointments None recorded. Lab None recorded. Referral None recorded. Procedures None recorded. Surgeries endoscopy, nasal/sinus , w/ total ethmoidecto my (SURG) 2023 024 [email or web address] Not available 11:55:21 Imaging None recorded. Medication Orders None recorded. Patient TargetsNo targets recorded. Patient Instructions Encounter Date Encounter Id Patient Instructions Last Modified By Organization Details Last Modified Time 08/03/2024 [id number] Patient will obtain a CT of her sinuses for further diagnostics. Discussed pending her results on the CT sinus if surgical intervention is required we will schedule her with Dr. Chicas at a later date. If symptoms continue to persist or worsen after completion of antibiotics please return to the office for further evaluation. [email or web address] Not available 08/03/2024 12:46:04 Reason for Referral None Reported. Results Created Date Observation Date Name Description Value Unit Range Abnormal Flag Note LastModifiedBy Organization Detail LastModifiedTime 11/26/1911/26/2024 HEMOG LOBIN /JL TOCRI T hemoglobin 13.3 g/dL 12.0-1 5.6 Not Available [facility] (Lab) [address] [place], [address], 11/26/2024 09:37:29 11/26/1911/26/2024 HEMOG LOBIN /JL TOCRI T hematocrit 38.9 % 35.7-4 5.7 Not Available [facility] (Lab) [address] [place], [address], 11/26/2024 09:37:29 11/26/19 25 11/26/2024 PLATE LET COUNT platelets 210 x10'3 /uL 150-40 0 Not Available [facility] (Lab) [address] [place], [address], 11/26/2024 09:37:44 11/26/19 25 11/26/2024 POTAS SIUM potassium 4.0 mmol/ L 3.5-5. 1 Not Available [facility] (Lab) [address] [place], [address], 11/26/2024 09:51:16 11/26/19 25 11/26/2024 URINE HCG QUAL/ POINT OF CARE point of care urine preg negati ve negati ve Not Available [facility] (Lab) [address] [place], [address], 11/26/2024 10:15:00 08/12/2008/11/2024 CT, sinus es, w/o contr ast No observ ation record ed. [email or web address] [facility] [address] [place], [address], 08/17/2024 09:28:10 08/17/2008/17/2024 CT, maxil lofac ial, w/o contr ast No observ ation record ed. BARCODE Not Available 2023 16:41:36 Result Notes None recorded. Problems Name Problem SNOMED Code Status Onset Date Resolution Date Notes Provider Name and Address Organization Details Recorded Time Chronic sinusitis 78715126 Active 024 Rose Tolentino RN null, [employer] 4 12:40:54 Chronic ethmoidal sinusitis 92013007 Active [address] [facility] [address], [place], [address] , [employer] 4 12:25:23 Problem Notes None recorded. Procedures Surgical History Date Name Laterality Status Provider Name and Address Organization Details Recorded Time 11/26/19 25 ENDOSCOPY, NASAL/SINUS, W/ TOTAL ETHMOIDECTOMY (SURG) completed Rose Tolentino RN [facility] 12/07/2024 12:59:05 nasal septoplasty [facility] 08/03/2024 12:32:16 tonsillectomy completed ADAN Padilla [facility] 08/03/2024 12:29:16 Imaging Results Imaging Date Name Status LastModified by Organiz ation Details LastModified Time 08/11/2024 CT, sinuses, w/o contrast completed [address] [place], [address], 08/17/2024 09:28:10 08/17/2024 CT, maxillofacial , w/o contrast completed [facility] Information not available 08/17/2024 16:41:36 Procedure Notes None recorded. Medical Equipment None Reported. Allergies Allergen ID Allergen Name Allergen Category Reaction Reaction Severity Criticality Documentation Date Start Date Code Code System Note Provider Name and Address Organization Details Recorded Time 48078 latex environme nt,medica tion swelling severe Not available 08/03/2024 25139 91 [facility]Norm [facility] 12:27:53 41118 Product containin g penicilli n and antibioti c (product) medicatio n hives Not available Not available 08/03/2024 56079 05 SNOMED THROW ING UP BLOOD [facility] 12:28:57 79892 Augmentin medicatio n Not available Not available Not available 08/03/2024 49373 2 RxNorm ADAN Padilla [facility] 12:28:21 66062 Flonase medicatio n Not available Not available Not available 08/03/2024 71552 RxADAN Anna [facility] 12:28:46 Medications Name Sig Start Date Stop Date Status Note LastModified by Organization Details LastModified Time doxycycline hyclate 100 mg capsule TAKE 1 CAPSULE BY MOUTH EVERY 12 HOURS FOR 10 DAYS 08/03 completed Not Available Not Available Not Available sertraline 100 mg tablet TAKE 1 TABLET BY MOUTH EVERY DAY active Not Available Not Available No t Available ciprofloxac in 500 mg tablet TAKE 1 TABLET BY MOUTH EVERY 12 HOURS FOR 10 DAYS 08/03 completed Not Available Not Available Not Available tramadol 50 mg tablet TAKE 1 TABLET BY MOUTH THREE TIMES DAILY NEEDED active Not Available Not Available No t Available ketorolac 10 mg tablet 08/03 completed Not Available Not Available Not Available dexamethaso ne 0.5 mg/5 mL oral elixir SWISH 5 ML TWICE DAILY FOR 10 DAYS. SWISH FOR SEVERAL MINS THEN SPIT OUT 08/03 completed Not Available Not Available Not Available propranolol 10 mg tablet TAKE 1 TABLET BY MOUTH TWICE DAILY active Not Available Not Available No t Available cephalexin 500 mg capsule TAKE 1 CAPSULE BY MOUTH THREE TIMES DAILY FOR 10 DAYS 10/13 completed Not Available Not Available Not Available sertraline 25 mg tablet 10/13 completed Not Available Not Available Not Available hydroxyzine HCl 25 mg tablet active Not Available Not Available Not Available gabapentin 100 mg capsule TAKE 2 CAPSULES BY MOUTH TWICE DAILY 08/03 completed Not Available Not Available Not Available levofloxaci n 500 mg tablet TAKE 1 TABLET BY MOUTH EVERY 24 HOURS FOR 5 DAYS 08/03 completed Not Available Not Available Not Available levofloxaci n 750 mg tablet TAKE 1 TABLET BY MOUTH DAILY 08/03 completed Not Available Not Available Not Available albuterol sulfate HFA 90 mcg/actuati on aerosol inhaler active Not Available Not Available Not Available sertraline 50 mg tablet TAKE 1 TABLET BY MOUTH TWICE DAILY DIRECTED active Not Available Not Available No t Available Emgality Pen 120 mg/mL subcutaneou s pen injector INJECT 120MG SUBCUTANE OUSLY ONCE A MONTH active Not Available Not Available No t Available Vitals Date Recorded Body weight Body mass index (BMI) Body height Body temperature Provider Name and Address Organization Details Last Updated DateTime 08/03/2024 21429.54 g 33.7 kg/m2 162.56 cm 97.8 [degF] Rose Tolentino RN [place] [facility] 08/03/2024 12:30:45 Date Recorded Body height Body mass index (BMI) Body weight Body temperature Provider Name and Address Organization Details Last Updated DateTime 10/13/2024 162.56 cm 35 kg/m2 34668.84 g 98.3 [degF] Rose Tolentino RN [facility] [employer] [facility] 10/13/2024 12:13:59 Date Recorded Body height Body mass index (BMI) Body weight Body temperature Provider Name and Address Organization Details Last Updated DateTime 10/28/2024 162.56 cm 34.7 kg/m2 62540.66 g 98.2 [degF] Rose Tolentino RN [facility] [employer] [facility] 10/28/2024 15:03:48 Date Recorded Body height Body mass index (BMI) Body weight Body temperature Provider Name and Address Organization Details Last Updated DateTime 12/06/2024 162.56 cm 35.2 kg/m2 62950.44 g 97.9 [degF] Rose Tolentino RN [facility] 12/06/2024 15:00:50 Social History Question Answer Notes LastModified by Organizat ion Details LastModified Time Tobacco Smoking Status Former Smoker Rose Tolentino RN [facility], [facility] [employer] [facility] 08/03/2024 12:29:25 What Is Your Level Of Alcohol Consumption? None [email or web address] Information not available 08/03/2024 Sex: Unknown Functional Status None recorded. Mental Status None recorded. Family History Relationship Description Onset Age of this Age Resolved Age Notes LastModified by Organization Details LastModified Time Father No current problems or disability [email or web address] Not available 08/03 12:29:05 Mother No current problems or disability [email or web address] Not available 08/03 12:29:05 Notes:NO ENT Medical History Condition Response HEADACHES/MIGRAINES Y HYPERTENSION Y Gynecological HistoryNo gynecological history recorded. Obstetrics History GPAL:G 0 P 0 0 0 0 Past Encounters Encounter ID Performer Location Encounter Start Date Encounter Closed Date Diagnosis/Indication Diagnosis SNOMED-CT Code Diagnosis ICD10 Code Diagnosis Note [id number] KANCHAN Medrano [facility] [place] [address] [place] [address] 08/03/2024 12:18:11 08/09/2024 14:06:09 Chronic sinusitis 61473372 J32.9 Continue taking Keflex as previously prescribed by urgent Care for antimicrob ial coverage. [id number] KANCHAN Medrano [facility] [place] [address] [place] [address] 10/13/2024 11:38:01 10/13/2024 12:26:26 Chronic ethmoidal sinusitis 16141080 J32.2 patient will be scheduled with Dr. Chicas for surgical consultati on of a total ethmoidect josephine. [id number] MD ANNA [facility] [place] [address] [place] [address] 10/28/2024 14:54:45 11/04/2024 10:44:11 Chronic ethmoidal sinusitis 49358931 J32.2 [id number] KANCHAN Medrano [facility] [place] [address] [place] [address] 12/06/2024 14:52:15 12/06/2024 15:16:43 Postoperative visit [id number] Z48.89 11/26/2024 postoperat falguni from a bilateral ethmoidect josephine. Advised to begin blowing her nose and discussed that this will alleviate the postoperat falguni sinus pressure symptoms. Follow-up as needed. Health Concerns Section Related Observation LastModified by Organization Detai ls LastModified Time None Recorded Concern Status LastModified by Organization Details LastModified Time None Recorded Advance Directives Directive None Recorded Payers Encounter Date Sequence Insurance Name Policy Number Policy Cline Covered Member ID Cline Member ID Guarantor Name 08/03/2024 1 [facility] AFTER 05/10/21 (MEDICAID REPLACEMENT - HMO) Ramya Madrigal [id number] [facility] Kaitlin 10/13/2024 1 [facility] AFTER 05/10/21 (MEDICAID REPLACEMENT - HMO) Ramya Madrigal [id number] [facility] K[facility]lin 10/28/2024 1 [facility] DOS ON OR AFTER 21 (MEDICAID REPLACEMENT - HMO) Ramya Madrigal [id number] Yolanda Madrigal 12/06/2024 1 [facility] - DOS ON OR AFTER 21 (MEDICAID REPLACEMENT - HMO) Ramya Madrigal [id number] Yolanda Madrigal Notes Date Note Type Note Provider Name and Address Organization Details Recorded Time 08/03/2024 text/html This patient has a past medical history significant for chronic migraines, hypertension, and chronic sinusitis. She is a previous patient of Dr. Reeder, ENT. She states that she had a sinus surgery and septoplasty approximately 4 months ago. She states that she has had continued sinus pressure near the ethmoidal sinuses with inflammation. She presented to an urgent care a couple of days ago and was diagnosed with a sinus infection and prescribed a 10 day course of Keflex which she is currently taking. She states that she is unable to take prednisone due to itching and increased mood changes. She is allergic to Flonase spray. She has not had any recent imaging. We will obtain a CT of her sinuses. We will also obtain her records from [facility]. KANCHAN Medrano [address] [employer], [place], [address], [employer] 08/03/2024 12:46:08 10/13/2024 text/html This patient presents to the office for a two-month follow-up for continued sinus pressure at her ethmoid sinus and congestion despite rounds of antibiotic use. She had a sinus CT completed on 08/11/2024 with mild mucosal opacification of the ethmoid air cells. According to the results she said that she was given the results but the patient is stating that she was never provided the results. Due to continued symptoms despite antibiotic use she will see Dr. Bello to discuss surgical options. KANCHAN Medrano [address] [employer], [place], [address], [employer] 10/13/2024 12:25:54 10/28/2024 text/html the patient had a CT scan demonstrating ethmoid sinusitis. This antibiotics have been unsuccessful in controlling her pain and headache. She has had sinus surgery in the past which she deemed unsuccessful. Bruce Chicas MD [address] [facility] [address], [place], [address], [employer] 10/28/2024 15:21:55 12/06/2024 text/html this patient presents to the office for a postoperative visit from a bilateral ethmoidectomy with navigation that was completed on 11/26/2024. she reports the inability to use the saline rinses postoperatively. She does report some mild sinus pressure at her ethmoid sinus but notes that she has not yet begun blowing her nose. KANCHAN Medrano [address], [place], [address], [employer] 12/06/2024 15:16:11 OBGyn Episode No OBEpisode recorded.
--- OUTSIDE RECORDS SUMMARY | 2024-12-22 20:10 | XMS_ITS | Clinical Summary ---
Author Organization [facility] Address [address] [place] [address] Care Team Providers Care Health Diagnostics Teacher Name Role Phone George Doe Primary Care Provider [phone] Allergies Active Allergy Reactions Criticality Noted Date Comments Amoxicillin-Pot Clavulanate Hives High 02/15/2016 Azithromycin Unknown 10/28/2018 Bupropion Unknown 10/28/2018 Cinnamon Swelling High 07/05/2020 Fish-Derived Products Angioedema High 04/15/2018 Haloperidol Unknown 10/28/2018 Iodinated Contrast Media Itching Low 02/11/2023 Throat itching, rash Latex Rash Low 07/05/2020 Penicillins Throat swelling 02/11/2023 Omeprazole Hives 02/11/2023 Ranitidine Unknown 10/28/2018 Shrimp Extract Angioedema High 04/15/2018 Sulfa Antibiotics Unknown 10/28/2018 Sumatriptan Rash Low 01/29/2023 Vancomycin Unknown 10/28/2018 Medications sertraline 50 MG tablet Take 1.5 tablets (75 mg total) by mouth daily. Active propranolol (INDERAL) 10 MG tablet Take 1 tablet (10 mg total) by mouth 2 (two) times daily. Active Galcanezumab-gn lm (EMGALITY) 120 MG/ML Solution Auto-injector Active Encounters Date Type Department Care Team Description 11/26/2024 7:30 AM ELECTRONIC EQUIPMENT SET UP OPERATOR - 11/26/2024 11:59 PM [facility] Hospital Encounter [facility] Laboratory [place] [id number] Bruce Leggett MD Discharge Disposition: Home or Self Care (Routine Discharge) from Last 3 Months Family History Medical History Relation Comments Cancer Father Relation Status Comments Father Social History Tobacco Use Types Packs/Day Years Used Date Smoking Tobacco: Former Cigarettes Smokeless Tobacco: Never Tobacco Cessation:Counseling Given: Not Answered Alcohol Use Standard Drinks/Week Comments Never 0 (1 standard drink = 0.6 oz pur e alcohol) AUDIT-C Answer Date Recorded Q1: How often do you have a drink containing alc ohol? Never 07/05/2020 Average Number of Drinks Not on file 020 Frequency of Binge Drinking Not on file 06/11 Comments No Sex and Gender Information Value Date Recorded Sex Assigned at Not on file Legal Sex Female 4:26 PM CDT Gender Identity Female 11/01/2021 8:49 AM ELECTRONIC EQUIPMENT SET UP OPERATOR Sexual Orientation Not on file Last Filed Vital Signs Vital Sign Reading Time Taken Comments Blood Pressure 150/99 11/25/2023 10:25 AM ELECTRONIC EQUIPMENT SET UP OPERATOR Pulse 56 11/25/2023 10:25 AM ELECTRONIC EQUIPMENT SET UP OPERATOR Temperature 36.7 C (98 F) 11/25/2023 10:25 AM ELECTRONIC EQUIPMENT SET UP OPERATOR Respiratory Rate 18 11/25/2023 10:2 5 AM ELECTRONIC EQUIPMENT SET UP OPERATOR Oxygen Saturation 99% 11/25/2023 10: 25 AM ELECTRONIC EQUIPMENT SET UP OPERATOR Inhaled Oxygen Concentration - - Weight 100.8 kg (222 lb 3.6 oz) 024 10:25 AM ELECTRONIC EQUIPMENT SET UP OPERATOR Height 162.6 cm (5' 4 ) 11/25/2023 10:2 5 AM ELECTRONIC EQUIPMENT SET UP OPERATOR Body Mass Index 38.14 11/25/2023 10:25 AM ELECTRONIC EQUIPMENT SET UP OPERATOR Plan of Treatment Health Maintenance Due Date Last Done Comments Cervical Cancer Screening Pa p Smear (Age 30 to 64) Every 3 Years 1982 Annual Physical 1985 Hepatitis C 2000 DTaP, Tdap and Td Vaccines ( 1 - Tdap) 2001 Hepatitis B Vaccines (1 of - + 3-dose series) 2001 Cervical Cancer Screening Pa p with HPV Testing (Age 30 to 64) Every 5 Years 2012 Cervical Cancer Screening with HPV 2012 Mammogram Screening 2022 COVID-19 Vaccine (1 - 2024-2 5 season) 2024 Influenza Adult (#1) 2024 HPV Vaccines Aged Out No longer eligi ble based on patient's age to complete this topic Meningococcal B Vaccine Aged Out No l onger eligible based on patient's age to complete this topic Meningococcal Vaccine Aged Out No lashell irlanda eligible based on patient's age to complete this topic Pneumococcal Vaccine: Pediat rics (0 to 5 Years) and At-Risk Patients (6 to 64 Years) Aged Out No longer eligible b ased on patient's age to complete this topic RSV Immunizations Under 20 Months Aged Out No longer eligible based on patient's age to complete this topic Procedures Procedure Name Priority Date/Time Associated Diagnosis Comments PATHOLOGY Routine 11/26/2024 12:00 AM ELECTRONIC EQUIPMENT SET UP OPERATOR from Last 3 Months Results * Pathology (11/26/2024 12:00 AM ELECTRONIC EQUIPMENT SET UP OPERATOR) PATHOLOGY [facility] Department of Laboratory Medicine [address] [place] [address] , extension [phone] Pathology Report Surgical Pathology Report Name: MONIQUE MADRIGAL Specimen #: [id number] Age: 9 1980 (Age: 44) Location: [facility] Sex: F Procedure Date: 11/26/2024 Hospital #: [id number] Date Received: 11/29/2024 Date Reported: 11/30/2024 Provider: BRUCE LEGEGTT MD Source: Ethmoid contents, bilateral Clinical History: Chronic ethmoid sinusitis. FINAL DIAGNOSIS: Sinus contents, bilateral ethmoidectomy: -Respiratory mucosa with patchy chronic inflammation and stromal edema. -Fragments of benign bone. Gross Description: Received in formalin, labeled with a patient label and as bilateral ethmoid contents are multiple pieces and fragments of pink-pettit tissue intermixed hemorrhagic fibrocartilaginous tissue. The pieces are 1.0 x 1.0 x 0.2 cm in aggregate. The specimen is entirely submitted in cassette 1. Gross examination (when applicable), interpretation, and sign out were performed at [facility], [address] [place] [address]. Electronically Signed Out HARLEY ARREGUIN MD [facility] 11/26/2024 11/29/2024 12: 37 PM ELECTRONIC EQUIPMENT SET UP OPERATOR Comment:Ethmoid contents, bi lateral us Bruce Leggett MD PATHOLOGY/CYTOLOGY ORDERABL ES Final Result [facility] [address] [place] [address], [id number] from Last 3 Months Insurance [employer] Care Teams Health Diagnostics Teacher Relationship Specialty Start Date End Date George Doe PA [address] [place] [address] PCP - General PHYSICIAN CLAIM EXAMINER 11/25/23
--- OUTSIDE RECORDS SUMMARY | 2024-12-22 20:10 | XMS_ITS | Encounter Summary ---
Author Organization [facility] Address [address] [place] [address] Phone Care Team Providers Care National Van Truck Driver Name Role Phone George Doe Primary Care Provider Arabella Ashley APRN, PHYSICIANS ASSISTANT Unavailable [phone] Ruben Rojo MD Unavailable Reason for Visit * Reason Comments Medication Refill Encounter Details Date Type Department Care Team (Late st Contact Info) Description 03/11/2024 Refill [facility] - Neurology [facility] [address] [place] [id number] Arabella Ashley APRN, PHYSICIANS ASSISTANT [address] [place] [address] Medication Refill Social History Tobacco Use Types [...] encounter Miscellaneous Notes * Telephone Encounter - Doreen Beckwith RN - 03/11/2024 9:27 AM CDT Medication failed the protocol, provider to review and approve the medication order if appropriate. Requested Prescriptions Pending Prescriptions Disp Refills Galcanezumab-gnlm (Emgality) 120 MG/ML Solution Auto-injector [Pharmacy Med Name: Emgality 120 MG/ML Subcutaneous Solution Auto-injector] 1 mL 2 Sig: INJECT 120MG SUBCUTANEOUSLY ONCE A MONTH Not Delegated - Off Protocol Failed - 03/11/2024 9:14 AM Failed - This refill cannot be delegated Passed - Visit with relevant provider in past 12 months or upcoming 90 days Recent Visits Date Type Provider Dept 11/27/23 Office Visit Arabella Ashley APRN, [facility] Neurology [facility] 06/30/23 Office Visit Arabella Ashley APRN, [facility] 05/16/23 Procedure Visit Ruben Rojo MD [facility] 03/31/23 Office Visit Arabella Ashley APRN, [facility] Showing recent visits within past 365 days and meeting all other requirements Future Appointments Date Type Provider Dept 04/06/24 Appointment Arabella Ashley APRN, [facility] Showing future appointments within next 90 days and meeting all other requirements documented in this encounter Plan of Treatment Upcoming Encounters Date Type Department Care Team (Late st Contact Info) Description 01/25/2025 11:30 AM CDT Telemedicine [facility] - Neurology - [place] [address] [place] [address] Arabella Ashley APRN, PHYSICIANS ASSISTANT [address] [place] [address] documented as of this encounter Visit Diagnoses Diagnosis Chronic migraine without aura, intractable, without status migrainosus documented in this encounter Care Teams National Van Truck Driver Relationship Specialty Start Date End Date George Doe, [facility] [address] [place] [address] PCP - General Physician Manager Speech 11/27/23 Arabella Ashley, MARRIAGE COUNSELOR, PHYSICIANS ASSISTANT [address] [place] [address] Nurse Practitioner Advanced Practice Nurse 01/29/23 Ruben Rojo MD [address] [place] [address] Consulting Physician Neurology 02/21/23 documented as of this encounter
--- NOTE | 2024-12-22 20:17 | PC.NURSE ---
PATIENT TAKEN TO XRAY VIA WHEEL CHAIR
[2024-12-22] MEDS: KETOROLAC 30 MG/ML VIAL (*BKC) IM (20:26)
--- OUTSIDE RECORDS SUMMARY | 2024-12-22 20:41 | XMS_ITS | Clinical Summary ---
Author Organization [facility] Address [address] [facility], [place] [address] Phone Care Team Providers Care Java Lead Architect Name Role Phone George Doe Primary Care Provider [phone] Arabella Ashley APRN, PLANT SUPERVISOR Unavailable [phone] Ruben Rojo MD Unavailable [phone] Allergies Active Allergy Reactions Criticality Noted Date [...] Department Care Team Description 10/14/2024 11:30 AM INSTRUCTIONAL TECHNOLOGY COACH [facility] [address] [place] [address] Arabella Ashley M, PROGRESSIVE CARE NURSE, PLANT SUPERVISOR Chronic migraine without aura, intractable, without status [...] Info) Description 01/25/2025 11:30 AM CDT [facility] [address] [place] [address] Arabella Ashley APRN, PLANT SUPERVISOR [address] [place] [address] Health Maintenance Due Date Last Done Comments [...] Insurance MEDICAID [employer] Care Teams Java Lead Architect Relationship Specialty Start Date End Date George Doe PAC [address] [place] [address] PCP - General Physician Back Closer 11/27/23 Arabella Ashley APRN, PLANT SUPERVISOR [address] [place] [address] Nurse Practitioner Advanced Practice Nurse 01/29/23 Ruben Rojo MD [address] [place] [address] Consulting Physician Neurology 02/21/23
--- OUTSIDE RECORDS SUMMARY | 2024-12-22 20:41 | XMS_ITS | Encounter Summary ---
Author Organization [facility] Address [address] [facility] [address] [place] [address] Care Team Providers Care Pickling Grader Name Role Phone George Doe Primary Care Provider [phone] Encounter Details Date Type Department Care Team ([facility] Contact Info) Description 08/10/2014 Orders Only [facility] Health Information Management [address] [place] [address] Scanning, Provider Social History Tobacco Use Types Packs/Day Years Used Date Smoking Tobacco: Never Assessed Comments Unknown Sex and Gender Information Value Date Recorded Sex Assigned at Not on file Legal Sex Female 3:15 PM SR ACCOUNT EXECUTIVE Gender Identity Not on file Sexual Orientation [...] on filedocumented in this encounter Care Teams Pickling Grader Relationship Specialty Start Date End Date George Doe PA [address] [place] [address] PCP - General 04/15/18 documented as of this encounter
--- OUTSIDE RECORDS SUMMARY | 2024-12-22 20:41 | XMS_ITS | Encounter Summary ---
Author Organization [facility] Address [address] [place] [address] Phone Care Team Providers Care Finishing Frame Runner Name Role Phone George Doe Primary Care Provider Arabella Ashley APRN, C[employer]ER [employer] Unavailable [phone] Ruben Rojo MD Unavailable Reason for Visit * Reason Comments Medication Refill Encounter Details Date Type Department Care Team (Late st Contact Info) Description 03/11/2024 Refill [facility] - Neurology [facility] [address] [place] [id number] Arabella Ashley APRN, [employer] [address] [place] [address] Medication Refill Social History Tobacco Use Types [...] Dept 11/27/23 Office Visit Arabella Ashley APRN, [facility] Neurology [facility] 06/30/23 Office Visit Arabella Ashley APRN, [facility] 05/16/23 Procedure Visit Ruben Rojo MD [facility] 03/31/23 Office Visit Arabella Ashley APRN, [facility] Showing recent visits within past 365 days and meeting all other requirements Future Appointments Date Type Provider Dept 04/06/24 Appointment Arabella Ashley APRN, [facility] Showing future appointments within next 90 days and meeting all other requirements documented in this encounter Plan of Treatment Upcoming Encounters Date Type Department Care Team (Late st Contact Info) Description 01/25/2025 11:30 AM CDT Telemedicine [facility] - Neurology - [place] [address] [place] [address] Arabella Ashley APRN, [employer] [address] [place] [address] documented as of this encounter Visit Diagnoses Diagnosis Chronic migraine without aura, intractable, without status migrainosus documented in this encounter Care Teams Finishing Frame Runner Relationship Specialty Start Date End Date George Doe, [facility] [address] [place] [address] PCP - General Physician Territory Manager General Sales 11/27/23 Arabella Ashley, SOLAR INSTALLATION MANAGER, [employer] [address] [place] [address] Nurse Practitioner Advanced Practice Nurse 01/29/23 Ruben Rojo MD [address] [place] [address] Consulting Physician Neurology 02/21/23 documented as of this encounter
--- OUTSIDE RECORDS SUMMARY | 2024-12-22 20:41 | XMS_ITS | Encounter Summary ---
Author Organization [facility] Address [address] [place] [address] Phone Care Team Providers Care Preparer Name Role Phone Stef Pickard DO Primary Care Provider George Doe Primary Care Provider Arabella Ashley APRN, SEO STRATEGIST Unavailable [phone] Ruben Rojo MD Unavailable Reason for Visit * Reason Comments Medication Refill Encounter Details Date Type Department Care Team (Late st Contact Info) Description 09/28/2023 Refill [facility] - Neurology [facility] [address] [place] [address] Arabella Ashley, [place], SEO STRATEGIST [address] [place] [address] Medication Refill Social History Tobacco Use Types [...] 06/30/23 Office Visit Arabella Ashley APRN, CNS [facility] Neurology [facility] 05/16/23 Procedure Visit Ruben Rojo MD [facility] 03/31/23 Office Visit Arabella Ashley APRN, CNS [facility] 02/21/23 Procedure Visit Ruben Rojo MD [facility] Neurology [facility] 01/29/23 Office Visit Arabella Ashley APRN, CNS [facility] Showing recent visits within past 365 days and meeting all other requirements Future Appointments Date Type Provider Dept 11/27/23 Appointment Arabella Ashley APRN, CNS [facility] Showing future appointments within next 90 days and meeting all other requirements SEPARATOR documented in this encounter Plan of Treatment Upcoming Encounters Date Type Department Care Team (Late st Contact Info) Description 01/25/2025 11:30 AM CDT Telemedicine [facility] - Neurology - [place] [address] [place] [address] Arabella Ashley APRN, SEO STRATEGIST [address] [place] [address] documented as of this encounter Visit Diagnoses Diagnosis Chronic migraine without aura, intractable, without status migrainosus documented in this encounter Care Teams Preparer Relationship Specialty Start Date End Date Stef Pickard DO [address] [facility] [place] [address] PCP - General Internal Medicine 01/29/23 11/26/23 George Doe, [facility] [address] [place] [address] PCP - General Physician Lease Out Worker 11/27/23 Arabella Ashley APRN, SEO STRATEGIST [address] [place] [address] Nurse Practitioner Advanced Practice Nurse 01/29/23 Ruben Rojo MD [address] [place] [address] Consulting Physician Neurology 02/21/23 documented as of this encounter
--- OUTSIDE RECORDS SUMMARY | 2024-12-22 20:41 | XMS_ITS | Clinical Summary ---
Author Organization [facility] [employer] Address [address] [place] [address] Care Team Providers Care Wind Instrument Repairer Name Role Phone George Doe Primary Care Provider [phone] Source Comments [facility] [employer],non-owned Affiliates and Associated Physician Practices is amultiple site organization consisting of ambulatory clinics and hospital sitesin [place], [place], [place] and [place]. This disclosure is being madepursuant to the Care Everywhere program and may not contain all information available regarding this patient. Last updated 18.[facility] [employer] Allergies Active Allergy Reactions Criticality Noted Date [...] capsuleIndicatio ns:Intractable migraine with aura without status migrainosus,Linter Operator yuliet daily headache Take 2 (two) capsules [...] age to complete this topic Care Teams Wind Instrument Repairer Relationship Specialty Start Date End Date George Doe PA [address] [place] [address] PCP - General Physician Junior [employer] Math Teacher 11/24/23
--- OUTSIDE RECORDS SUMMARY | 2024-12-22 20:41 | XMS_ITS | Encounter Summary ---
Author Organization [facility] Address [address] [facility] [address] [place] [address] Care Team Providers Care Supervisor Twisting Department Name Role Phone George Doe Primary Care Provider [phone] Encounter Details Date Type Department Care Team (Late st Contact Info) Description 06/04/2014 Orders Only [facility] Health Information Management [address] [place] [address] Scanning, Provider Social History Tobacco Use Types Packs/Day Years Used Date Smoking Tobacco: Never Assessed Comments Unknown Sex and Gender Information Value Date Recorded Sex Assigned at Not on file Legal Sex Female 3:15 PM INSPECTOR MACHINE CUT GLASS Gender Identity Not on file Sexual Orientation [...] on filedocumented in this encounter Care Teams Supervisor Twisting Department Relationship Specialty Start Date End Date George Doe PA [address] [place] [address] PCP - General 04/15/18 documented as of this encounter
--- OUTSIDE RECORDS SUMMARY | 2024-12-22 20:41 | XMS_ITS | Clinical Summary ---
Author Organization [facility] Address [address] [place] [address] Care Team Providers Care Assistant Professor Of Surgery Name Role Phone George Doe Primary Care Provider [phone] Allergies Active Allergy Reactions Criticality Noted Date [...] Department Care Team Description 11/26/2024 7:30 AM FOOD AND BEVERAGE ASSISTANT MANAGER - 11/26/2024 11:59 PM [facility] Hospital Encounter [facility] [place] [id number] Bruce Leggett MD Discharge Disposition: Home or [...] CDT Gender Identity Female 11/01/2021 8:49 AM FOOD AND BEVERAGE ASSISTANT MANAGER Sexual Orientation Not on file Last Filed Vital Signs Vital Sign Reading Time Taken Comments Blood Pressure 150/99 11/25/2023 10:25 AM FOOD AND BEVERAGE ASSISTANT MANAGER Pulse 56 11/25/2023 10:25 AM FOOD AND BEVERAGE ASSISTANT MANAGER Temperature 36.7 C (98 F) 11/25/2023 10:25 AM FOOD AND BEVERAGE ASSISTANT MANAGER Respiratory Rate 18 11/25/2023 10:2 5 AM FOOD AND BEVERAGE ASSISTANT MANAGER Oxygen Saturation 99% 11/25/2023 10: 25 AM FOOD AND BEVERAGE ASSISTANT MANAGER Inhaled Oxygen Concentration - - Weight 100.8 kg (222 lb 3.6 oz) 024 10:25 AM FOOD AND BEVERAGE ASSISTANT MANAGER Height 162.6 cm (5' 4 ) 11/25/2023 10:2 5 AM FOOD AND BEVERAGE ASSISTANT MANAGER Body Mass Index 38.14 11/25/2023 10:25 AM FOOD AND BEVERAGE ASSISTANT MANAGER Plan of Treatment Health Maintenance Due Date [...] Diagnosis Comments PATHOLOGY Routine 11/26/2024 12:00 AM FOOD AND BEVERAGE ASSISTANT MANAGER from Last 3 Months Results * Pathology (11/26/2024 12:00 AM FOOD AND BEVERAGE ASSISTANT MANAGER) PATHOLOGY [facility] Department of Laboratory Medicine [address] [place] [address] , extension [id number] Pathology Report Surgical Pathology Report Name: MONIQUE MADRIGAL Specimen #: [id number] Age: 9 1980 (Age: 44) Location: [facility] Sex: F Procedure Date: 11/26/2024 Hospital #: [id number] Date Received: 11/29/2024 Date Reported: 11/30/2024 Provider: BRUCE LEGGETT MD Source: Ethmoid contents, bilateral Clinical History: [...] interpretation, and sign out were performed at [facility], [address] [place] [address]. Electronically Signed Out HARLEY ARREGUIN MD [facility] 11/26/2024 11/29/2024 12: 37 PM FOOD AND BEVERAGE ASSISTANT MANAGER Comment:Ethmoid contents, bi lateral us Bruce Leggett MD PATHOLOGY/CYTOLOGY ORDERABL ES Final Result [facility] [address] [place] [address], [id number] from Last 3 Months Insurance [employer] Care Teams Assistant Professor Of Surgery Relationship Specialty Start Date End Date George Doe PA [address] [place] [address] PCP - General PHYSICIAN STANDARDS ENGINEER 11/25/23
--- OUTSIDE RECORDS SUMMARY | 2024-12-22 20:41 | XMS_ITS | Encounter Summary ---
Author Organization [facility] Address [address] [place] [address] Phone Care Team Providers Care Port Surveyor Name Role Phone Stef Pickard DO Primary Care Provider George Doe Primary Care Provider Arabella Ashley APRN, YARD WORKER Unavailable Ruben Rojo MD Unavailable [phone] Reason for Visit * Reason Comments Medication Refill Encounter Details Date Type Department Care Team (Late st Contact Info) Description 09/27/2023 Refill [facility] - Neurology [facility] [address] [place] [phone] Arabella Ashley APRN, YARD WORKER [address] [place] [address] Medication Refill Social History Tobacco Use Types [...] [facility] - Neurology - [place] [address] [place] [address] Arabella Ashley APRN, YARD WORKER [address] [place] [address] documented as of this encounter Visit Diagnoses Diagnosis Chronic migraine without aura, intractable, without status migrainosus documented in this encounter Care Teams Port Surveyor Relationship Specialty Start Date End Date Stef Pickard DO [address] [facility] [place] [address] PCP - General Internal Medicine 01/29/23 11/26/23 George Doe [facility] [address] [place] [address] PCP - General Physician Computer Designer 11/27/23 Arabella Ashley APRN, YARD WORKER [address] [place] [address] Nurse Practitioner Advanced Practice Nurse 01/29/23 Ruben Rojo MD [address] [place] [address] Consulting Physician Neurology 02/21/23 documented as of this encounter
--- OUTSIDE RECORDS SUMMARY | 2024-12-22 20:41 | XMS_ITS | Referral Summary ---
Author Organization [facility] Address [address] [facility] [place] [address] Care Team Providers Care Shredding Specialist Name Role Phone George Doe Primary Care Provider [phone] Source Comments [facility],non-owned Affiliates and Associated Physician Practices is amultiple site organization consisting of ambulatory clinics and hospital sitesin [place], [place], [place] and [place]. This disclosure is being madepursuant to the Care Everywhere program and may not contain all information available regarding this patient. Last updated 18.[facility] Allergies Active Allergy Reactions Criticality Noted Date [...] capsuleIndicatio ns:Intractable migraine with aura without status migrainosus,Physical Sciences Professor yuliet daily headache Take 2 (two) capsules [...] of Treatment Not on file Care Teams Shredding Specialist Relationship Specialty Start Date End Date George Doe PA [address] [place] [address] PCP - General Physician Mold Sprayer 11/24/23
--- OUTSIDE RECORDS SUMMARY | 2024-12-22 20:41 | XMS_ITS | Encounter Summary ---
Author Organization [facility] Address [address] [place] [address] Phone Care Team Providers Care Valve And Regulator Repairer Name Role Phone Stef Pickard DO Primary Care Provider George Doe Primary Care Provider Arabella Ashley APRN, DETECTIVE AND INTELLIGENCE ANALYST Unavailable Ruben Rojo MD Unavailable Reason for Visit * Reason Comments Medication Refill Encounter Details Date Type Department Care Team (Late st Contact Info) Description 08/20/2023 Refill [facility] - Neurology [facility] [address] [place] [id number] Arabella Ashley APRN, DETECTIVE AND INTELLIGENCE ANALYST [address] [place] [address] Medication Refill Social History Tobacco Use Types [...] [facility] - Neurology - [place] [address] [place] [address] Arabella Ashley APRN, DETECTIVE AND INTELLIGENCE ANALYST [address] [place] [address] documented as of this encounter Visit Diagnoses Diagnosis Chronic migraine without aura, intractable, without status migrainosus documented in this encounter Care Teams Valve And Regulator Repairer Relationship Specialty Start Date End Date Stef Pickard DO [address] [facility] [place] [address] PCP - General Internal Medicine 01/29/23 11/26/23 George Doe [facility] [address] [place] [address] PCP - General Physician Reporting Developer 11/27/23 Arabella Ashley APRN, DETECTIVE AND INTELLIGENCE ANALYST [address] [place] [address] Nurse Practitioner Advanced Practice Nurse 01/29/23 Ruben Rojo MD [address] [place] [address] Consulting Physician Neurology 02/21/23 documented as of this encounter
--- OUTSIDE RECORDS SUMMARY | 2024-12-22 20:41 | XMS_ITS | Clinical Summary ---
Author Organization [facility] Healthcare Address [address] [place] [address] Care Team Providers Care Linotype Machinist Apprentice Name Role Phone George Doe Primary Care Provider [phone] Allergies Active Allergy Reactions Criticality Noted Date [...] (07/03/2022): Added automatically from request for surgery [id number] Palpitations 11/26/2019 History of gastrointestinal ulcer 11/26/2019 [...] on file Legal Sex Female 3:15 PM RAIL FLAW DETECTOR OPERATOR Gender Identity Not on file Sexual Orientation [...] patient's age to complete this topic Insurance [facility] Care Teams Linotype Machinist Apprentice Relationship Specialty Start Date End Date George Doe PA [address] [place] [address] PCP - General 04/15/18
--- OUTSIDE RECORDS SUMMARY | 2024-12-22 20:41 | XMS_ITS | Referral Summary ---
Author Organization [facility] Healthcare Address [address] [place] [address] Care Team Providers Care Tube Filler Name Role Phone George Doe Primary Care Provider [phone] Allergies Active Allergy Reactions Criticality Noted Date [...] (07/03/2022): Added automatically from request for surgery [id number] Palpitations 11/26/2019 History of gastrointestinal ulcer 11/26/2019 [...] on file Legal Sex Female 3:15 PM TIMBER SUPERVISOR Gender Identity Not on file Sexual [...] Plan of Treatment Not on file Insurance [facility] Care Teams Tube Filler Relationship Specialty Start Date End Date George Doe PA [address] [place] [address] PCP - General 04/15/18
--- OUTSIDE RECORDS SUMMARY | 2024-12-22 20:41 | XMS_ITS | Patient Health Summary ---
Author Organization [facility] Address [address] [facility] [place] [address] Care Team Providers Care Career Development Specialist Name Role Phone George Doe Primary Care Provider [phone] Note from [facility],non-owned Affiliates and Associated Physician Practices is amultiple site organization consisting of ambulatory clinics and hospital sitesin [place], [place], [place] and [place]. This disclosure is being madepursuant to the Care Everywhere program and may not contain all information available regarding this patient. Last updated 18.[facility] Allergies * Amoxicillin(Unknown) * Amoxicillin-Pot Clavulanate(Other) -High [...] 38.11 01/27/2024 10:23 AM CDT Care Teams Career Development Specialist Relationship Specialty Start Date End Date George Doe PA [address] [place] [address] PCP - General Physician Title I Teacher 11/24/23
--- NOTE | 2024-12-22 20:43 | PC.NURSE ---
DR VILLARREAL NOTIFIED THAT ALL IMAGES HAVE RESULTED. PATIENT RESTING ON STRETCHER IN ROOM.
[2024-12-22 21:01] VITALS: BP 126/80; PULSE 78; RESP 18; O2SAT 100
== END 2024-12-22 21:01 | disposition home or self-care (01) ==
PROVIDERS: Emergency Provider Internal Medicine Critical Care Medicine; PCP Physician Assistant
DX: M25.512 Pain in left shoulder (principal); W10.9XXA Fall (on) (from) unspecified stairs and steps, initial encounter; Z87.891 Personal history of nicotine dependence
CPT/HCPCS: 72040; 73030; 96372; 99283; J1885

== ENCOUNTER 2025-06-15 10:33 | Emergency (ER) | payer OTHER, SELFPAY ==
--- NOTE | ~2025-06-15 | XR_ITS ---
XR shoulder RT min 2V 06/15/2025 11:05 INDICATION: Right shoulder pain PROCEDURE: 2 views right shoulder COMPARISON: Comparison to multiple prior studies sequentially, with oldest reviewed study dated 07/2020. FINDINGS: Fracture, dislocation or subluxation is not identified. The soft tissues appear within norm al limits. No foreign bodies are identified. IMPRESSION: 1: NO ACUTE BONE OR JOINT ABNORMALITY IDENTIFIED. Reviewed, dictated and finalized at location A.
[2025-06-15 10:33] VITALS: BP 137/90; PULSE 62; RESP 16; TEMP 36.7; O2SAT 100
--- NOTE | 2025-06-15 10:44 | ED_ITS ---
HPI - Extremity Injury (Upper) General Chief Complaint: Extremity Injury, Upper Stated Complaint: rt. shoulder pain Time Seen by Provider: 06/15/25 10:44 Source: patient Mode of arrival: ambulatory Limitations: no limitations History of Present Illness HPI narrative: 44-year-old female with a history of anxiety /depression, migraine presents to the ED with -- right shoulder pain-- this started spontaneously. No history of trauma. patient had a prior history shoulder pain which lot worse 2 hours ago. MD complaint: injury to: right and shoulder Onset (ago): hour(s) ( 2 hours) Other Extremity Injury: Right: shoulder Other injuries: none Handedness: right Place: home Severity: moderate Relieving factors: immobilization Exacerbating factors: movement of extremity Associated symptoms: denies other symptoms Related Data Home Medications ?Medication ?Instructions ?Recorded ?Confirmed ?Last Taken ?Type galcanezumab-gnlm 120 mg/mL 120 mg subcut WEEKLY 11/05/23 04/12/24 Unknown History subcutaneous pen injector (Emgality Pen) sertraline 50 mg tablet 50 mg PO DAILY 03/23/24 04/12/24 03/30/24 History Allergies Allergy/AdvReac Type Severity Reaction Status Date / Time amoxicillin Allergy Severe Anaphylaxis Verified 06/15/25 10:39 cinnamon Allergy Severe Anaphylaxis Verified 06/15/25 10:39 clavulanic acid Allergy Severe Anaphylaxis Verified 06/15/25 10:39 morphine Allergy Severe Anaphylaxis Verified 06/15/25 10:39 Penicillins Allergy Severe Anaphylaxis Verified 06/15/25 10:39 codeine Allergy Mild RASH Verified 06/15/25 10:39 latex Allergy Mild Rash Verified 06/15/25 10:39 propoxyphene Allergy Mild Hives Verified 06/15/25 10:39 zinc chloride Allergy Mild Unknown Verified 06/15/25 10:39 loratadine Allergy Dyspnea / Verified 06/15/25 10:39 SOB pantoprazole (From Protonix) Allergy Hives Verified 06/15/25 10:39 rizatriptan Allergy Hives Verified 06/15/25 10:39 shrimp Allergy Anaphylaxis Verified 06/15/25 10:39 sumatriptan (From Imitrex) Allergy Hives Verified 06/15/25 10:39 omeprazole AdvReac Mild Vomiting Verified 06/15/25 10:39 Review of Systems Review of Systems: All systems reviewed & are unremarkable except as noted in HPI and below PMFSH Past Medical History Medical History Sinusitis, acute Recurrent cold sores White matter disease Allergies Cough Conjunctivitis Gastritis COVID-19 Anxiety History of depression History of migraine Surgical History Surgical History History of endometrial ablation Hx of tonsillectomy Family History Family History Grandparent Diabetes mellitus Heart problem Cerebrovascular accident Father Lymphoma Alcoholism Cancer Sibling Hypertension Depression Mother Heart problem Hypertension Social History Social History Smoking packs per day: 2 Smoking cigarettes per day: 40.0 Smoking status: Former smoker Tobacco type: cigarettes Second hand tobacco smoke exposure: No Smoking end date: 03/23/18 Alcohol intake: former Substance use: former Lack of Transportation: No Lack of Food: Never True Concerned About Future Housing: No Difficulty Paying Gas/Electric Bills: No Difficulty Paying for Meds: No Currently Unemployed: YES Education: High School Diploma/GED Difficulty w/ Childcare or Family Care: No Living arrangements: with family Occupation/Education: occupation Gender identity (if verbalized by the patient): Female Spiritual care concerns: No Exam Narrative: Vitals are stable. Const: Orientation/consciousness: patient oriented x3 Limitations: no limitations HENMT: Head: normal to inspection Ears: external ears normal Face/Nose/Sinus: Normal external nose present Face and sinus: normal facial exam Mouth: Yes Normal oral and palatal mucosa present Throat: posterior oropharynx normal Eyes: Conjunctivae: conjunctivae normal Pupils: Equal, round and reactive pupils present EOM: EOMs intact bilaterally Direct Ophthalmoscopy: no photophobia Neck: Neck: normal visual inspection, no lymphadenopathy and no meningeal signs Chest: Chest palpation & inspection: normal inspection of the chest Resp: Effort & Inspection: normal respiratory effort Auscultation: clear to auscultation bilaterally Cardio: Rate: regular rate Rhythm: regular rhythm GI: GI Palp: Yes Soft to palpation Auscultation: normal bowel sounds Other: No tenderness/rigidity / rebound. : General: Yes no CVA tenderness Back/Spine/Pelvis: Back: no CVA tenderness Skin: General skin exam: normal color Rashes: no rashes Wounds: no wounds Neuro: General: patient oriented x3, moves all extremities, no meningeal signs and no focal motor deficits Speech: normal speech Extrem: General: normal to inspection and no clubbing, cyanosis or edema Other: Right shoulder-- tenderness of the right shoulder over the bicipital groove and posteriorly. Normal range of motion. Psych: Mental Status: mental status grossly normal Affect: normal affect Course Course Emergency Course: Right shoulder pain-- tenderness over the bicipital groove. Normal range of motion. X-ray did not show any acute findings. Will discharge home with a sling. The patient refused to take Toradol injection. Patient wants a note for work. Vital Signs Vital signs: Vital Signs Temperature 36.7 C 06/15/25 10:33 Pulse Rate 62 06/15/25 10:33 Respiratory Rate 16 06/15/25 10:33 Blood Pressure 137/90 06/15/25 10:33 Pulse Oximetry 100 06/15/25 10:33 Oxygen Delivery Room Air 06/15/25 10:33 Temperature 36.7 C 06/15/25 10:33 Pulse Rate 62 06/15/25 10:33 Respiratory Rate 16 06/15/25 10:33 Blood Pressure 137/90 06/15/25 10:33 Pulse Oximetry 100 06/15/25 10:33 Oxygen Delivery Room Air 06/15/25 10:33 MDM - Extremity Injury (Upper) MDM Narrative Medical decision making narrative: Right shoulders pain Differential Diagnosis Differential diagnosis: Likely dislocation of shoulder Lab Data Attestation: I reviewed the patient's lab results. Discharge Plan Discharge Clinical Impression: Acute shoulder pain Qualifiers: Laterality: right Qualified Code(s): M25.511 - Pain in right shoulder Patient Disposition: Home Condition: Stable Instructions: Antibiotic Form, Shoulder Pain (ED) Patient Language: [place] Citizen Prescriptions: No Action Emgality Pen 120 mg/mL pen injector 120 mg SUBCUT WEEKLY sertraline 50 mg tablet 50 mg PO DAILY propranolol 10 mg tablet 10 mg PO Q12H Qty: 60 2RF Follow-up/Referrals: Brook,OLINDA Hernandez [Primary Care Provider] - Stand Alone Forms: Work/School Release IP Time of Disposition: 11:25
--- OUTSIDE RECORDS SUMMARY | 2025-06-15 11:07 | XMS_ITS | Encounter Summary ---
Author Organization [facility] Address [address] [place] [address] Care Team Providers Care Transmission And Coordination Engineer Name Role Phone George Doe Primary Care Provider [phone] Encounter Details Date Type Department Care Team (Late st Contact Info) Description 06/04/2014 Orders Only [facility] Information Management [address] [place] [address] Scanning, Provider Social History Tobacco Use Types Packs/Day Years Used Date Smoking Tobacco: Never Assessed Comments Unknown Sex and Gender Information Value Date Recorded Sex Assigned at Not on file Legal Sex Female 3:15 PM RN COMPLEX CARE Gender Identity Not on file Sexual Orientation [...] on filedocumented in this encounter Care Teams Transmission And Coordination Engineer Relationship Specialty Start Date End Date George Doe PA [address] [place] [address] PCP - General 04/15/18 documented as of this encounter
--- OUTSIDE RECORDS SUMMARY | 2025-06-15 11:07 | XMS_ITS | Encounter Summary ---
Author Organization [facility] Address [address] [place] [address] Care Team Providers Care Whipped Topping Finisher Name Role Phone George Doe Primary Care Provider [phone] Encounter Details Date Type Department Care Team ([facility] Contact Info) Description 08/10/2014 Orders Only [facility] Health Information Management [address] [place] [address] Scanning, Provider Social History Tobacco Use Types Packs/Day Years Used Date Smoking Tobacco: Never Assessed Comments Unknown Sex and Gender Information Value Date Recorded Sex Assigned at Not on file Legal Sex Female 3:15 PM INGOT CASTER Gender Identity Not on file Sexual Orientation [...] on filedocumented in this encounter Care Teams Whipped Topping Finisher Relationship Specialty Start Date End Date George Doe PA [address] [place] [address] PCP - General 04/15/18 documented as of this encounter
--- OUTSIDE RECORDS SUMMARY | 2025-06-15 11:07 | XMS_ITS | Encounter Summary ---
Author Organization [facility] Address [address] [place] [address] Phone Care Team Providers Care Podiatry Teacher Name Role Phone Stfe Pickard DO Primary Care Provider George Doe Primary Care Provider [phone] Arabella Ashley APRN, WELFARE VISITOR Unavailable Ruben Rojo MD Unavailable Reason for Visit * Reason Comments Medication Refill Encounter Details Date Type Department Care Team (Late st Contact Info) Description 08/20/2023 Refill [facility] - Neurology [facility] [address] [place] [id number] Arabella Ashley, BRIDGE MANAGER, WELFARE VISITOR [address] [place] [address] Medication Refill Social History Tobacco Use Types [...] Care Team (Late st Contact Info) Description 07/28/2025 11:30 AM CDT Telemedicine [facility] - Neurology - [place] [address] [place] [address] Arabella Ashley APRN, WELFARE VISITOR [address] [place] [address] documented as of this encounter Visit Diagnoses Diagnosis Chronic migraine without aura, intractable, without status migrainosus documented in this encounter Care Teams Podiatry Teacher Relationship Specialty Start Date End Date Stef Pickard DO [address] [place] [address] PCP - General Internal Medicine 01/29/23 11/26/23 George Doe [facility] [address] [place] [address] PCP - General Physician Storage Facility Rental Clerk 11/27/23 Arabella Ashley APRN, WELFARE VISITOR [address] [place] [address] Nurse Practitioner Advanced Practice Nurse 01/29/23 Ruben Rojo MD [address] [place] [address] Consulting Physician Neurology 02/21/23 documented as of this encounter
--- OUTSIDE RECORDS SUMMARY | 2025-06-15 11:07 | XMS_ITS | Clinical Summary ---
Author Organization [facility] Address [address] [place] [address] Care Team Providers Care Certified Prosthetist/Orthotist Name Role Phone George Doe Primary Care Provider Source Comments [facility],non-owned Affiliates and Associated Physician Practices is amultiple site organization consisting of ambulatory clinics and hospital sitesin [place], [place], [place] and [place]. This disclosure is being madepursuant to the Care Everywhere program and may not contain all information available regarding this patient. Last updated 18.[facility] Allergies Active Allergy Reactions Criticality Noted Date [...] document. Alwaysverify current medications with the patient. propranolol (Inderal) 10 MG tablet Take 1 (one) tablet by mouth 2 times daily Active sertraline (Zoloft) 50 MG tablet Take 1.5 (one and one-half) tablets by mouth once daily Active gabapentin (Neurontin) 100 MG capsuleIndicat ions:Intractab le migraine with aura without status migrainosus,Ch ronic daily headache Take 2 (two) capsules by mouth 2 times daily 120 capsule 4 4 Active Additional Information Patient not taking.Reported on 01/27/2024 cyanocobalamin (Vitamin B-12) 500 MCG tablet Take 1 (one) tablet by mouth once daily 100 tablet 4 Active acetaminophen (Tylenol) 325 MG tablet Take 1 (one) tablet by mouth every 4 hours as needed for Fever or Pain Maximum allowable Acetaminophen amount = 4 Grams (4000 mg) / 24 hours. Active Emgality 120 MG/ML auto-injector penIndications :Intractable migraine with aura without status migrainosus,Vi sual changes,Chroni c daily headache Inject 1 mL subcutaneously every 28 days 1 mL 4 4 Active cephalexin (Keflex) 500 MG capsule Take 1 (one) capsule by mouth 3 times daily FOR 10 DAYS 4 Active Cyanocobalamin 1000 MCG Take 1 capsule by mouth once daily 3 Active ketorolac (Toradol) 10 MG tablet 3 Active Aimovig 70 MG/ML auto injector pen ADMINISTER 1 ML UNDER THE SKIN MONTHLY 3 Active Loratadine (Claritin) 10 MG Active sertraline (Zoloft) 25 MG tablet 4 Active Ubrelvy 100 MG tablet Take 1 (one) tablet by mouth once daily as needed For migraine. 3 Active traMADol (Ultram) 50 MG tablet TAKE 1 TO 2 TABLETS BY MOUTH EVERY 8 HOURS NEEDED FOR PAIN 3 Active sucralfate (Carafate) 1 GM tablet Take [...] at Not on file Legal Sex Female 6:56 PM COUNTER SUPPLY WORKER Gender Identity Not on file Sexual Orientation [...] 10:23 AM CDT Height 162.6 cm (5' 4) 01/27/2024 10:23 AM CDT Body Mass Index 38.11 01/27/2024 10:23 AM CDT Plan of Treatment Health Maintenance Due Date Last Done Comments LIPID TESTING 1982 MAMMOGRAM 1982 HIV SCREENING 1997 HEPATITIS C SCREENING 07/24/2000 DTAP/TDAP/TD VACCINES (1 - Tdap) 2001 HEPATITIS B VACCINE (1 of 3 - 19+ 3-dose series) 2001 PAP SMEAR 2003 HPV VACCINE (1 - 3-dose SCDM series) 2009 COVID-19 VACCINE (1 - season) 2024 DEPRESSION SCREENING 11/10/2024 INFLUENZA VACCINE (#1) 2025 SCREENING FOR DIABETES 03/06/2026 , 03/06/2023, 02/11/2023, Additional history exists ZOSTER VACCINE (1 of 2) 2032 HIB VACCINE Aged Out No longer eligi ble based on patient's age to complete this topic MENINGOCOCCAL (Group B) VACCINE SHARED DECISION-MAKING Aged Out No longer eligible based on patient's age to complete this topic MENINGOCOCCAL GROUPS A/C/Y/W VACCINE Aged Out No longer eligible based on patient's age to complete this topic PNEUMOCOCCAL VACCINE Aged Out No long er eligible based on patient's age to complete this topic Insurance Care Teams Certified Prosthetist/Orthotist Relationship Specialty Start Date End Date George Doe PA [address] [place] [address] PCP - General Physician Technical Marketing Engineer 11/24/23
--- OUTSIDE RECORDS SUMMARY | 2025-06-15 11:08 | XMS_ITS | Clinical Summary ---
Author Organization [facility] Healthcare Address [address] [place] [address] Care Team Providers Care Bridge Crew Member Name Role Phone George Doe Primary Care Provider [phone] Allergies Active Allergy Reactions Criticality Noted Date [...] (07/03/2022): Added automatically from request for surgery [id number] Palpitations 11/26/2019 History of gastrointestinal ulcer 11/26/2019 [...] on file Legal Sex Female 3:15 PM THERMODYNAMICIST Gender Identity Not on file Sexual Orientation [...] 10:18 AM CDT Height 160 cm (5' 3) 07/03/2022 10:18 AM CDT Body Mass Index 35.43 07/03/2022 10:18 AM CDT Plan of Treatment Health Maintenance Due Date Last Done Comments Breast Cancer Screening-Mammogram 1982 Cervical Cancer Screening 1982 Depression Screening 1982 Hepatitis C Screening 1982 Varicella Vaccines (1 of 2 - 13+ 2-dose series) 1995 DTaP/Tdap/Td Vaccine (1 - Tdap) 06/24/1997 7 Hepatitis B Screening 2000 Regular Well Visit/Exam 18-64 2000 HPV Vaccines (1 - 3-dose SCD M series) 2009 Influenza Vaccine (#1) 2025 Pneumococcal vaccine <65 Aged Out No longer eligible based on patient's age to complete this topic Insurance [facility] Care Teams Bridge Crew Member Relationship Specialty Start Date End Date George Doe PA [address] [place] [address] PCP - General 04/15/18
--- OUTSIDE RECORDS SUMMARY | 2025-06-15 11:08 | XMS_ITS | Encounter Summary ---
Author Organization [facility] Address [address] [place] [address] Phone Care Team Providers Care Black Top Spreader Machine Operator Name Role Phone Stef Pickard DO Primary Care Provider George Doe Primary Care Provider [phone] Arabella Ashely APRN, CONFERENCE MANAGER Unavailable Ruben Rojo MD Unavailable Reason for Visit * Reason Comments Medication Refill Encounter Details Date Type Department Care Team (Late st Contact Info) Description 09/28/2023 Refill [facility] - Neurology [facility] [address] [place] [id number] Arabella Ashley, SUPERVISOR JOINERS, CONFERENCE MANAGER [address] [place] [address] Medication Refill Social History Tobacco Use Types [...] encounter Miscellaneous Notes * Telephone Encounter - Valarie Jensen RN - 09/29/2023 8:15 AM CST Medication [...] 06/30/23 Office Visit Arabella Ashley APRN, CNS [facility] Neurology [facility] 05/16/23 Procedure Visit Ruben Rojo MD [facility] 03/31/23 Office Visit Arabella Ashley APRN, CNS [facility] 02/21/23 Procedure Visit Ruben Rojo MD [facility] Neurology [facility] 01/29/23 Office Visit Arabella Ashley APRN, CNS [facility] Showing recent visits within past 365 days and meeting all other requirements Future Appointments Date Type Provider Dept 11/27/23 Appointment Arabella Ashley APRN, CNS [facility] Showing future appointments within next 90 days and meeting all other requirements PING MILL TENDER documented in this encounter Plan of Treatment Upcoming Encounters Date Type Department Care Team (Late st Contact Info) Description 07/28/2025 11:30 AM CDT Telemedicine [facility] - Neurology - [place] [address] [place] [address] Arabella Ashley APRN, CONFERENCE MANAGER [address] [place] [address] documented as of this encounter Visit Diagnoses Diagnosis Chronic migraine without aura, intractable, without status migrainosus documented in this encounter Care Teams Black Top Spreader Machine Operator Relationship Specialty Start Date End Date Stef Pickard DO [address] [facility] [place] [address] PCP - General Internal Medicine 01/29/23 11/26/23 George Doe [facility] [address] [place] [address] PCP - General Physician Studio Producer 11/27/23 Arabella Ashley APRN, CONFERENCE MANAGER [address] [place] [address] Nurse Practitioner Advanced Practice Nurse 01/29/23 Ruben Rojo MD [address] [place] [address] Consulting Physician Neurology 02/21/23 documented as of this encounter
--- OUTSIDE RECORDS SUMMARY | 2025-06-15 11:08 | XMS_ITS | Encounter Summary ---
Author Organization [facility] Address [address] [place] [address] Phone Care Team Providers Care Freezer Machine Operator Name Role Phone George Doe Primary Care Provider Arabella Ashley APRN, CLINICAL LABORATORY ASSISTANT Unavailable [phone] Ruben Rojo MD Unavailable Reason for Visit * Reason Comments Medication Refill Encounter Details Date Type Department Care Team (Late st Contact Info) Description 03/11/2024 Refill [facility] - [facility] [address] [place] [id number] Arabella Ashley APRN, CLINICAL LABORATORY ASSISTANT [address] [place] [address] Medication Refill Social History Tobacco Use Types [...] Dept 11/27/23 Office Visit Arabella Ashley APRN, [facility] 06/30/23 Office Visit Arabella Ashley APRN, [facility] 05/16/23 Procedure Visit Ruben Rojo MD [facility] 03/31/23 Office Visit Arabella Ashley APRN, [facility] Showing recent visits within past 365 days and meeting all other requirements Future Appointments Date Type Provider Dept 04/06/24 Appointment Arabella Ashley APRN, [facility] Showing future appointments within next 90 days and meeting all other requirements documented in this encounter Plan of Treatment Upcoming Encounters Date Type Department Care Team (Late st Contact Info) Description 07/28/2025 11:30 AM CDT Telemedicine [facility] - Neurology - [place] [address] [place] [address] Arabella Ashley APRN, CLINICAL LABORATORY ASSISTANT [address] [place] [address] documented as of this encounter Visit Diagnoses Diagnosis Chronic migraine without aura, intractable, without status migrainosus documented in this encounter Care Teams Freezer Machine Operator Relationship Specialty Start Date End Date George Doe PAC [address] [place] [address] PCP - General Physician Phys Therapist 11/27/23 Arabella Ashley, ETIQUETTE COACH, CLINICAL LABORATORY ASSISTANT [address] [place] [address] Nurse Practitioner Advanced Practice Nurse 01/29/23 Ruben Rojo MD [address] [place] [address] Consulting Physician Neurology 02/21/23 documented as of this encounter
--- OUTSIDE RECORDS SUMMARY | 2025-06-15 11:08 | XMS_ITS | Encounter Summary ---
Author Organization [facility] Address [address] [place] [address] Phone Care Team Providers Care Tax Examining Technician Name Role Phone Stef Pickard DO Primary Care Provider George Doe Primary Care Provider [phone] Arabella Ashley APRN, DATA COMMUNICATIONS TECHNICIAN Unavailable Ruben Rojo MD Unavailable [phone] Reason for Visit * Reason Comments Medication Refill Encounter Details Date Type Department Care Team (Late st Contact Info) Description 09/27/2023 Refill [facility] - Neurology [facility] [address] [place] [phone] Arabella Ashley, BARBED WIRE MACHINE OPERATOR, DATA COMMUNICATIONS TECHNICIAN [address] [place] [address] Medication Refill Social History Tobacco Use Types [...] [facility] - Neurology - [place] [address] [place] [address] Arabella Ashley APRN, DATA COMMUNICATIONS TECHNICIAN [address] [place] [address] documented as of this encounter Visit Diagnoses Diagnosis Chronic migraine without aura, intractable, without status migrainosus documented in this encounter Care Teams Tax Examining Technician Relationship Specialty Start Date End Date Stef Pickard DO [address] [facility] [place] [address] PCP - General Internal Medicine 01/29/23 11/26/23 George Doe [facility] [address] [place] [address] PCP - General Physician Corporate Administrative Assistant 11/27/23 Arabella Ashley APRN, DATA COMMUNICATIONS TECHNICIAN [address] [place] [address] Nurse Practitioner Advanced Practice Nurse 01/29/23 Ruben Rojo MD [address] [place] [address] Consulting Physician Neurology 02/21/23 documented as of this encounter
--- OUTSIDE RECORDS SUMMARY | 2025-06-15 11:08 | XMS_ITS | Clinical Summary ---
Author Organization [facility] Address [address] [facility] [place] [address] Phone Care Team Providers Care Peoplesoft Programmer Name Role Phone George Doe Primary Care Provider [phone] Arabella Ashley APRN, PERFORMANCE TEST CONSULTANT Unavailable [phone] Ruben Rojo MD Unavailable [phone] Allergies Active Allergy Reactions Criticality Noted Date [...] Active Galcanezumab-gn lm (Emgality) 120 MG/ML Solution Auto-injector 1 mL by Subcutaneous route every 28 days. 1 mL 5 Active Active Problems Problem Noted Date Diagnosed Date Migraine without aura and wi th status migrainosus, not intractable 12/18/2018 Encounters Date Type Department Care Team Description 04/11/2025 Telephone [facility] - Neurology [facility] [address] [place] [address] Arabella Ashley APRN, PERFORMANCE TEST CONSULTANT Prior Authorization from Last 3 Months Family History Medical [...] 1:17 PM CDT Height 162.6 cm (5' 4) 03/23/2024 1:17 PM CDT Body Mass Index 36.56 03/23/2024 1:17 PM CDT Plan of Treatment Upcoming Encounters Date Type Department Care Team (Late st Contact Info) Description 07/28/2025 11:30 AM CDT Telemedicine [facility] Neurology [facility] [address] [place] [address] Arabella Ashley APRN, PERFORMANCE TEST CONSULTANT [address] [place] [address] Health Maintenance Due Date Last Done Comments Hepatitis C Virus (HCV) Screening 1982 Mammogram 1982 TdaP Immunization 1982 Hepatitis B Immunization (1 of 3 - 19+ 3-dose series) 2001 Pap Smear 2003 Human Papillomavirus (HPV) Immunization (1 - 3-dose SCDM series) 2009 Cervical Cancer Screening (CCS) 2012 HPV/Cotest 2012 Discussion re Starting/Frequency of Mammograms 2022 SARS-COV-2 Immunization ( - 2023- season) 2024 10/26/2021, 05/21/2021 Influenza Immunization (#1) 2025 Respiratory Syncytial Virus (RSV) Immunization (Adult) (1 [...] Insurance MEDICAID [employer] Care Teams Peoplesoft Programmer Relationship Specialty Start Date End Date George Doe PAC [address] [place] [address] PCP - General Physician Diabetes Territory Manager 11/27/23 Arabella Ashley APRN, PERFORMANCE TEST CONSULTANT [address] [place] [address] Nurse Practitioner Advanced Practice Nurse 01/29/23 Ruben Rojo MD [address] [place] [address] Consulting Physician Neurology 02/21/23
[2025-06-15] MEDS: ACETAMINOPHEN 325 MG TABLET 650 MG PO (11:33)
--- OUTSIDE RECORDS SUMMARY | 2025-06-15 11:46 | XMS_ITS | Clinical Summary ---
Author Organization [facility] Address [address] [facility] [place] [address] Phone Care Team Providers Care Lawn Care Professional Name Role Phone George Doe Primary Care Provider [phone] Arabella Ashley APRN, FOUNTAIN VENDING MECHANIC Unavailable [phone] Ruben Rojo MD Unavailable [phone] Allergies Active Allergy Reactions Criticality Noted Date [...] Department Care Team Description 04/11/2025 Telephone [facility] - Neurology [facility] [address] [place] [address] Arabella Ashley APRN, FOUNTAIN VENDING MECHANIC Prior Authorization from Last 3 Months Family [...] Description 07/28/2025 11:30 AM CDT Telemedicine [facility] Neurology [facility] [address] [place] [address] Arabella Ashley APRN, FOUNTAIN VENDING MECHANIC [address] [place] [address] Health Maintenance Due Date Last Done Comments [...] Insurance MEDICAID [employer] Care Teams Lawn Care Professional Relationship Specialty Start Date End Date George Doe PAC [address] [place] [address] PCP - General Physician Basket Filler 11/27/23 Arabella Ashley APRN, FOUNTAIN VENDING MECHANIC [address] [place] [address] Nurse Practitioner Advanced Practice Nurse 01/29/23 Ruben Rojo MD [address] [place] [address] Consulting Physician Neurology 02/21/23
--- OUTSIDE RECORDS SUMMARY | 2025-06-15 11:46 | XMS_ITS | Encounter Summary ---
Author Organization [facility] Address [address] [facility] [address] [place] [address] Care Team Providers Care Tank Setter Helper Name Role Phone George Doe Primary Care Provider [phone] Encounter Details Date Type Department Care Team ([facility] Contact Info) Description 08/10/2014 Orders Only [facility] Health Information Management [address] [place] [address] Scanning, Provider Social History Tobacco Use Types Packs/Day Years Used Date Smoking Tobacco: Never Assessed Comments Unknown Sex and Gender Information Value Date Recorded Sex Assigned at Not on file Legal Sex Female 3:15 PM MANAGER CRITICAL CARE UNIT Gender Identity Not on file Sexual Orientation [...] on filedocumented in this encounter Care Teams Tank Setter Helper Relationship Specialty Start Date End Date George Doe PA [address] [place] [address] PCP - General 04/15/18 documented as of this encounter
--- OUTSIDE RECORDS SUMMARY | 2025-06-15 11:46 | XMS_ITS | Clinical Summary ---
Author Organization [facility] Address [address] [place] [address] Care Team Providers Care Hospital Unit Coordinator Name Role Phone George Doe Primary Care Provider [phone] Allergies Active Allergy Reactions Criticality Noted Date [...] (07/03/2022): Added automatically from request for surgery [id number] Palpitations 11/26/2019 History of gastrointestinal ulcer 11/26/2019 [...] on file Legal Sex Female 3:15 PM FAMILY COACH Gender Identity Not on file Sexual Orientation [...] [facility] Care Teams Hospital Unit Coordinator Relationship Specialty Start Date End Date George Doe PA [address] [place] [address] PCP - General 04/15/18
--- OUTSIDE RECORDS SUMMARY | 2025-06-15 11:46 | XMS_ITS | Encounter Summary ---
Author Organization [facility] Address [address] [place] [address] Phone Care Team Providers Care Absorption And Adsorption Engineer Name Role Phone Stef Pickard DO Primary Care Provider George Doe Primary Care Provider Arabella Ashley APRN, ASSISTANT WAREHOUSE MANAGER Unavailable Ruben Rojo MD Unavailable [phone] Reason for Visit * Reason Comments Medication Refill Encounter Details Date Type Department Care Team (Late st Contact Info) Description 09/28/2023 Refill [facility] - Neurology [facility] [address] [place] [address] Arabella Ashley, LAYOUT WORKER, ASSISTANT WAREHOUSE MANAGER [address] [place] [address] Medication Refill Social History Tobacco Use Types [...] 06/30/23 Office Visit Arabella Ashley APRN, [facility] Neurology [facility] 05/16/23 Procedure Visit Ruben Rojo MD [facility] 03/31/23 Office Visit Arabella Ashley APRN, [facility] 02/21/23 Procedure Visit Ruben Rojo MD [facility] Neurology [facility] 01/29/23 Office Visit Arabella Ashley APRN, [facility] Showing recent visits within past 365 days and meeting all other requirements Future Appointments Date Type Provider Dept 11/27/23 Appointment Arabella Ashley APRN, [facility] Showing future appointments within next 90 days and meeting all other requirements IR WELDER documented in this encounter Plan of Treatment Upcoming Encounters Date Type Department Care Team (Late st Contact Info) Description 07/28/2025 11:30 AM CDT Telemedicine [facility] - Neurology - [place] [address] [place] [address] Arabella Ashley APRN, ASSISTANT WAREHOUSE MANAGER [address] [place] [address] documented as of this encounter Visit Diagnoses Diagnosis Chronic migraine without aura, intractable, without status migrainosus documented in this encounter Care Teams Absorption And Adsorption Engineer Relationship Specialty Start Date End Date Stef Pickard DO [address] [facility] [place] [address] PCP - General Internal Medicine 01/29/23 11/26/23 George Deo [facility] [address] [place] [address] PCP - General Physician Sterilization Technician 11/27/23 Arabella Ashley APRN, ASSISTANT WAREHOUSE MANAGER [address] [place] [address] Nurse Practitioner Advanced Practice Nurse 01/29/23 Ruben Rojo MD [address] [place] [address] Consulting Physician Neurology 02/21/23 documented as of this encounter
--- OUTSIDE RECORDS SUMMARY | 2025-06-15 11:46 | XMS_ITS | Encounter Summary ---
Author Organization [facility] Address [address] [place] [address] Phone Care Team Providers Care Mash Filter Cloth Changer Name Role Phone Stef Pickard DO Primary Care Provider George Doe Primary Care Provider [phone] Arabella Ashley APRN, KENO TERMINAL OPERATOR Unavailable Ruben Rojo MD Unavailable Reason for Visit * Reason Comments Medication Refill Encounter Details Date Type Department Care Team (Late st Contact Info) Description 08/20/2023 Refill [facility] - Neurology [facility] #[address] [place] [address] Arabella Ashley, SCHOOL COOK, KENO TERMINAL OPERATOR [address] [place] [address] Medication Refill Social History Tobacco Use Types [...] [facility] - Neurology - [place] [address] [place] [address] Arabella Ashley APRN, KENO TERMINAL OPERATOR [address] [place] [address] documented as of this encounter Visit Diagnoses Diagnosis Chronic migraine without aura, intractable, without status migrainosus documented in this encounter Care Teams Mash Filter Cloth Changer Relationship Specialty Start Date End Date Stef Pickard DO [address] [facility] [place] [address] PCP - General Internal Medicine 01/29/23 11/26/23 George Doe [facility] [address] [place] [address] PCP - General Physician Dye Tub Operator 11/27/23 Arabella Ashley APRN, KENO TERMINAL OPERATOR [address] [place] [address] Nurse Practitioner Advanced Practice Nurse 01/29/23 Ruben Rojo MD [address] [place] [address] Consulting Physician Neurology 02/21/23 documented as of this encounter
--- OUTSIDE RECORDS SUMMARY | 2025-06-15 11:46 | XMS_ITS | Clinical Summary ---
Author Organization [facility] Address [address] [facility] [place] [address] Care Team Providers Care Mail Superintendent Name Role Phone George Doe Primary Care Provider [phone] Source Comments [facility],non-owned Affiliates and Associated Physician Practices is amultiple site organization consisting of ambulatory clinics and hospital sitesin [place], [place], [place] and [place]. This disclosure is being madepursuant to the Care Everywhere program and may not contain all information available regarding this patient. Last updated 18.[facility] Allergies Active Allergy Reactions Criticality Noted Date [...] on file Legal Sex Female 6:56 PM DIRECTOR OF FEDERAL SALES Gender Identity Not on file Sexual Orientation [...] to complete this topic Insurance Care Teams Mail Superintendent Relationship Specialty Start Date End Date George Doe PA [address] [place] [address] PCP - General Physician Coding Consultant 11/24/23
--- OUTSIDE RECORDS SUMMARY | 2025-06-15 11:46 | XMS_ITS | Encounter Summary ---
Author Organization [facility] Address [address] [facility] [address] [place] [address] Care Team Providers Care Contact Center Rep Name Role Phone George Doe Primary Care Provider [phone] Encounter Details Date Type Department Care Team (Late st Contact Info) Description 06/04/2014 Orders Only [facility] Health Information Management [address] [place] [address] Scanning, Provider Social History Tobacco Use Types Packs/Day Years Used Date Smoking Tobacco: Never Assessed Comments Unknown Sex and Gender Information Value Date Recorded Sex Assigned at Not on file Legal Sex Female 3:15 PM ENGLISH TEACHER Gender Identity Not on file Sexual Orientation [...] on filedocumented in this encounter Care Teams Contact Center Rep Relationship Specialty Start Date End Date George Doe PA [address] [place] [address] PCP - General 04/15/18 documented as of this encounter
--- OUTSIDE RECORDS SUMMARY | 2025-06-15 11:46 | XMS_ITS | Encounter Summary ---
Author Organization [facility] Address [address] [place] [address] Phone Care Team Providers Care Demo Specialist Name Role Phone Stef Pickard DO Primary Care Provider George Doe Primary Care Provider Arabella Ashley APRN, FORGING PRESS SETTER UP Unavailable Ruben Rojo MD Unavailable Reason for Visit * Reason Comments Medication Refill Encounter Details Date Type Department Care Team (Late st Contact Info) Description 09/27/2023 Refill [facility] - Neurology [facility] #[address] [place] [address] Arabella Ashley, CODING ADVISOR, FORGING PRESS SETTER UP [address] [place] [address] Medication Refill Social History Tobacco Use Types [...] [facility] - Neurology - [place] [address] [place] [address] Arabella Ashley APRN, FORGING PRESS SETTER UP [address] [place] [address] documented as of this encounter Visit Diagnoses Diagnosis Chronic migraine without aura, intractable, without status migrainosus documented in this encounter Care Teams Demo Specialist Relationship Specialty Start Date End Date Stef Pickard DO [address] [facility] [place] [address] PCP - General Internal Medicine 01/29/23 11/26/23 George Doe [facility] [address] [place] [address] PCP - General Physician Oil Field Equipment Mechanic 11/27/23 Arabella Ashley APRN, FORGING PRESS SETTER UP [address] [place] [address] Nurse Practitioner Advanced Practice Nurse 01/29/23 Ruben Rojo MD [address] [place] [address] Consulting Physician Neurology 02/21/23 documented as of this encounter
--- OUTSIDE RECORDS SUMMARY | 2025-06-15 11:46 | XMS_ITS | Encounter Summary ---
Author Organization [facility] Address [address] [place] [address] Phone Care Team Providers Care Equipment Engineer Name Role Phone George Doe Primary Care Provider Arabella Ashley APRN, RN BONE MARROW TRANSPLANT Unavailable [phone] Ruben Rojo MD Unavailable Reason for Visit * Reason Comments Medication Refill Encounter Details Date Type Department Care Team (Late st Contact Info) Description 03/11/[address] [facility] - Neurology [facility] [address] [place] [address] Arabella Ashley APRN, RN BONE MARROW TRANSPLANT [address] [place] [address] Medication Refill Social History Tobacco Use Types [...] Dept 11/27/23 Office Visit Arabella Ashley APRN, [facility] 06/30/23 Office Visit Arabella Ashley APRN, [facility] 05/16/23 Procedure Visit Rbuen Rojo MD [facility] 03/31/23 Office Visit Arabella Ashley APRN, [facility] Showing recent visits within past 365 days and meeting all other requirements Future Appointments Date Type Provider Dept 04/06/24 Appointment Arabella Ashley APRN, [facility] Showing future appointments within next 90 days and meeting all other requirements documented in this encounter Plan of Treatment Upcoming Encounters Date Type Department Care Team (Late st Contact Info) Description 07/28/2025 11:[address] [facility] - Neurology - [place] [address] [place] [address] Arabella Ashley APRN, RN BONE MARROW TRANSPLANT [address] [place] [address] documented as of this encounter Visit Diagnoses Diagnosis Chronic migraine without aura, intractable, without status migrainosus documented in this encounter Care Teams Equipment Engineer Relationship Specialty Start Date End Date George Doe PAC [address] [place] [address] PCP - General Physician Applications Developer 11/27/23 Arabella Ashley, MANIFEST/ORDER ORGANIZER PRINT ORDERS, RN BONE MARROW TRANSPLANT [address] [place] [address] Nurse Practitioner Advanced Practice Nurse 01/29/23 Ruben Rojo MD [address] [place] [address] Consulting Physician Neurology 02/21/23 documented as of this encounter
[2025-06-15 12:00] VITALS: BP 138/88; PULSE 68; RESP 20; TEMP 36.7; O2SAT 99
== END 2025-06-15 12:00 | disposition home or self-care (01) ==
PROVIDERS: Emergency Provider Internal Medicine Critical Care Medicine; PCP Physician Assistant
DX: M25.511 Pain in right shoulder (principal); Z87.891 Personal history of nicotine dependence
CPT/HCPCS: 73030; 99283; A4565; A9270